=== PATIENT | female | born 1940 | race Caucasian/White ===

== ENCOUNTER → 2016-05-09 | Outpatient (CLI) | payer MEDICARE ==
[2016-05-09 11:53] LABS: ALT 34 U/L (9-52); AST 31 U/L (14-36); Alkaline Phosphatase 80 U/L (38-126); Anion Gap 12 mmol/L; Blood Urea Nitrogen 17 mg/dL (7-17); Calcium 9.6 mg/dL (8.4-10.2); Carbon Dioxide 23 mmol/L (22-30); Chloride 106 mmol/L (98-107); Glucose 113 mg/dL (74-99); Non-African American GFR(MDRD) >60 (>60 ml/min/1.73 sqM); Potassium 4.7 mmol/L (3.5-5.1); Sodium 141 mmol/L (137-145); Total Bilirubin 0.6 mg/dL (0.2-1.3); Total Protein 7.1 g/dL (6.3-8.2)
== END | disposition home or self-care (01) ==
LOC: LABWHC1 11:03
PROVIDERS: ATTEND Pediatrics
DX: Z79.899 Other long term (current) drug therapy (principal)
CPT/HCPCS: 36415; 80053

== ENCOUNTER → 2016-05-21 | Outpatient (CLI) | payer MEDICARE ==
[2016-05-21 10:12] LABS: EKG EKG PERFORMED
[2016-05-21 10:38] LABS: Basophils % (A) 1 %; CH 30.2; CHCM 33.2; Eosinophils # (A) 0.2 k/uL (0-0.7); Eosinophils % (A) 4 %; HCT 39.8 % (34.0-46.0); HDW 2.13; Luc # (Auto) 0.28; Luc % (Auto) 4; Lymphocytes # (A) 1.1 k/uL (1.0-4.8); Lymphocytes % (A) 18 %; MCH 29.9 pg (25.0-35.0); MCHC 32.7 g/dL (31.0-37.0); MCV 91.5 fL (80.0-100.0); Mean Platelet Volume 7.8; Monocytes # (A) 0.4 k/uL (0-1.0); Monocytes % (A) 6 %; Neutrophils # (A) 4.2 k/uL (1.3-7.7); Neutrophils % (A) 68 %; RBC 4.35 m/uL (3.80-5.40); RDW 12.6 % (11.5-15.5); WBC 6.3 k/uL (3.8-10.6)
[2016-05-21 10:46] LABS: Prothrombin Time 10.5 sec (9.0-12.0)
[2016-05-21 11:24] LABS: Appearance,Urine Clear (Clear); Bilirubin,Urine Negative (Negative); Glucose,Urine (UA) Negative (Negative); Ketones,Urine Negative (Negative); Leukocyte Esterase,Urine Large (Negative); Mucus,Urine Rare /hpf; Nitrite,Urine Negative (Negative); PH, Urine 5.5 (5.0-8.0); Particle Count 2632; Protein,Urine Negative (Negative); Specific Gravity,Urine 1.014 (1.001-1.035); Squamous Epithelial Cell,Urine 2 /hpf (0-4); UA Billing (MACRO vs. MICRO) MICRO; Urobilinogen,Urine <2.0 mg/dL (<2.0); WBC,Urine 13 /hpf (0-5)
[2016-05-21 11:26] LABS: ALT 31 U/L (9-52); AST 32 U/L (14-36); Alkaline Phosphatase 78 U/L (38-126); Anion Gap 14 mmol/L; Blood Urea Nitrogen 20 mg/dL (7-17); Calcium 9.8 mg/dL (8.4-10.2); Carbon Dioxide 25 mmol/L (22-30); Chloride 100 mmol/L (98-107); Glucose 105 mg/dL (74-99); Non-African American GFR(MDRD) >60 (>60 ml/min/1.73 sqM); Potassium 4.4 mmol/L (3.5-5.1); Sodium 139 mmol/L (137-145); Total Bilirubin 0.6 mg/dL (0.2-1.3); Total Protein 7.4 g/dL (6.3-8.2)
== END | disposition home or self-care (01) ==
LOC: LABPAT 09:42
PROVIDERS: ATTEND Orthopaedic Surgery
DX: Z01.810 Encounter for preprocedural cardiovascular examination (principal); Z01.812 Encounter for preprocedural laboratory examination
CPT/HCPCS: 80053; 81001; 85025; 85610; 85730; 87070; 93005

== ENCOUNTER → 2016-06-15 | Outpatient (CLI) | payer MEDICARE ==
--- NOTE | 2016-06-15 15:02 | EST ---
DATE OF SERVICE: 06/15/2016 AGE: 76Y SEX: F HT: 68" WT: 170 lbs. Protocol Yordan: X Other: Stress Stage: 1 Dur. of Exercise: 3:00 *Heart Rate Blood Pressure *Rest: 85 Rest: 158/53 * *Max. Achieved: 141 Maximum BP: 213/81 85% PMHR: 122 100% PMHR: 143 *METS: 3.6 INDICATIONS: Abnormal EKG. MEDICATIONS: Eye drops. Patient was exercised for a total period of 3 minutes. Peak heart rate of 141 was achieved. Test was terminated because patient got tired. Patient did not complain of any chest pain during the test. EKG shows normal sinus rhythm with normal KY interval and QRS duration and normal ST-T waves. During exercise about 1.[address] segment depression stayed for about 2 minutes in the postexercise. The patient did not complain of any chest pain during the test. FINAL IMPRESSION: 1. This exercise test shows about 1.[address] segment depression during exercise which could be suggestive of ischemia. Clinical correlation is suggested. 2. Patient did not complain of any anginal pain during the test.
== END ==
LOC: RADNMMAIN 10:19
PROVIDERS: ATTEND Family Medicine
DX: R94.31 Abnormal electrocardiogram [ECG] [EKG] (principal)
CPT/HCPCS: 93017

== ENCOUNTER → 2016-07-23 | Outpatient (CLI) | payer MEDICARE ==
[2016-07-23 12:04] LABS: Anion Gap 9 mmol/L; Blood Urea Nitrogen 21 mg/dL (7-17); Carbon Dioxide 27 mmol/L (22-30); Chloride 105 mmol/L (98-107); Non-African American GFR(MDRD) >60 (>60 ml/min/1.73 sqM); Potassium 4.3 mmol/L (3.5-5.1); Sodium 141 mmol/L (137-145)
[2016-07-23 12:31] LABS: CH 30.3; CHCM 33.1; HCT 41.4 % (34.0-46.0); HDW 2.09; HGB 13.3 gm/dL (11.4-16.0); MCH 29.6 pg (25.0-35.0); MCHC 32.2 g/dL (31.0-37.0); MCV 91.9 fL (80.0-100.0); Mean Platelet Volume 7.1; RDW 12.8 % (11.5-15.5); WBC 6.4 k/uL (3.8-10.6)
== END | disposition home or self-care (01) ==
LOC: LABWHC1 11:21
PROVIDERS: ATTEND Internal Medicine Interventional Cardiology
DX: Z01.812 Encounter for preprocedural laboratory examination (principal); R94.30 Abnormal result of cardiovascular function study, unspecified
CPT/HCPCS: 36415; 80051; 82565; 84520; 85027

== ENCOUNTER 2016-08-04 06:23 | Day surgery (SDC) | payer MEDICARE ==
[2016-07-30 15:56] VITALS: BMI 25.8
[~2016-08-04 06:23] MED LIST: ALPRAZolam 0.25 MG TAB PO PRN; ALPRAZolam 0.5 MG TAB PO PRN; ASPIRIN 325 MG TAB PO STA; ATORVASTATIN 80 MG TAB PO STA; NITROGLYCERIN SL TABS 0.4 MG TAB SUBLINGUAL PRN; SODIUM CHLORIDE 0.9% 1,000 ML in EMPTY BAG 1 BAG IV ONE
[2016-08-04 07:00] VITALS: RESP 16; TEMP 98
[2016-08-04] MEDS ORDERED: LIDOCAINE 2% INJ 20 MG/ML (20 ML MDV) ONE (07:11)
[2016-08-04] MEDS ORDERED: VERAPAMIL 2.5 MG/ML 2 ML AMP ONE (07:11)
[2016-08-04] MEDS ORDERED: fentaNYL (PF) 50 MCG/ML 2 ML AMP ONE (07:11)
[2016-08-04] MEDS ORDERED: diphenhydrAMINE 50 MG/ML 1 ML VIAL ONE (07:11)
[2016-08-04] MEDS ORDERED: diphenhydrAMINE 50 MG/ML 1 ML VIAL IVP ONE (07:43)
[2016-08-04] MEDS ORDERED: fentaNYL (PF) 50 MCG/ML 2 ML AMP IV ONE (07:43)
[2016-08-04] MEDS ORDERED: HEPARIN SODIUM 1,000 UNIT/ML VIAL ONE (07:46)
[2016-08-04] MEDS ORDERED: LIDOCAINE 2% INJ 20 MG/ML SQ ONE (07:47)
[2016-08-04] MEDS ORDERED: VERAPAMIL SYRINGE (5 MG/10 ML) INTRAARTER ONE (07:49)
[2016-08-04] MEDS ORDERED: HEPARIN SODIUM 1,000 UNIT/ML VIAL IV ONE (07:50)
[2016-08-04] MEDS ORDERED: NITROGLYCERIN 1000MCG/10ML SYRINGE INTRACORON ONE (08:09)
[2016-08-04] MEDS ORDERED: ADENOSINE 90 MG in SODIUM CHLORIDE 0.9% 60 ML IVP ONE (08:20)
[2016-08-04] MEDS ORDERED: IOHEXOL 350 MG/ML 125ML BOTTLE INJ ONE (08:23)
[2016-08-04] MEDS ORDERED: RX INFO: IV CONTRAST WAS GIVEN 1 EACH MISC MISCELLANE PRN (08:36)
[2016-08-04] MEDS ORDERED: SODIUM CHLORIDE 5% OPHTH DROPS 15 ML BTL BOTH EYES PRN (08:36)
[2016-08-04] MEDS ORDERED: SODIUM CHLORIDE 0.9% 1,000 ML IV SCH (08:45)
[2016-08-04] MEDS ORDERED: DHA PO SCH (09:00)
[2016-08-04] MEDS ORDERED: NON-FORMULARY DRUG (Vitamin B Complex [Vitamin B Complex] 1 EACH) PO SCH (09:00)
[2016-08-04] MEDS ORDERED: ATORVASTATIN 40 MG TAB PO SCH (09:00)
[2016-08-04] MEDS ORDERED: ASPIRIN 81 MG CHEW PO SCH (09:00)
[2016-08-04] MEDS ORDERED: EPA PO SCH (09:00)
[2016-08-04] MEDS ORDERED: FISH OIL PO SCH (09:00)
[2016-08-04] MEDS ORDERED: OMEGA PO SCH (09:00)
--- NOTE | 2016-08-04 12:45 | CC ---
DATE OF SERVICE: 08/04/2016 Mrs. Shaver is a 76-year-old female with a history of hypertension, hyperlipidemia, who is scheduled to undergo total knee arthroplasty, underwent a regular stress test where she had EKG changes with poor exercise tolerance. In view of that, recommendation was made regarding cardiac catheterization. The procedure as well as the risks and complications were discussed with the patient, who is full understanding and agreement. PROCEDURE: The patient was brought to the labor relations representative in a fasting semi-sedated state after receiving fentanyl and Benadryl and after showing moderate conscious sedated state. Using Xylocaine anesthesia and Seldinger technique, a 6 Ugandan sheath was introduced in the right radial artery. Selective right and left coronary angiography was performed using 5 Ugandan, 3-1/2 Bend right and left Asiya catheters. Multiple views of the coronary arteries including hemiaxial views were obtained. Following that, a 5 Ugandan tight pigtail catheter was introduced in the left ventricle, and a 30-degree FARR view of the left ventricle was obtained. Following that, catheter were removed. Images were reviewed. Following that a 6 Ugandan FL3.5 guiding catheter was introduced in the system, after cannulating the left main, the Doppler flow wire was introduced into the LAD, positioned in the mid distal segment, fractional flow reserve was calculated after infusion of Adenosine per protocol. Following that, wire and guiding catheter were withdrawn. The sheath was removed. Hemostasis was obtained with deployment of a TR band. There was no evidence of immediate complication. The patient was returned to the room in stable condition. Of note, the patient had received 4000 units of intravenous heparin as well as intra-arterial verapamil. There was no immediate complication. FINDINGS: FLUOROSCOPY: There is significant calcification involving all the coronary arteries. LEFT MAIN: This is a large-size vessel bifurcating into left circumflex and left anterior descending artery. Left main coronary artery is without any significant obstructive disease. LEFT ANTERIOR DESCENDING ARTERY: This is a large-size vessel reaching toward the apex, giving rise to a small diagonal branch. 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 There is an eccentric 50% to 60% plaque. The rest of the vessel has no high-grade stenosis. LEFT CIRCUMFLEX: This is a nondominant vessel, moderate in caliber, giving rise to 2 obtuse marginal branches. The left circumflex and its branches have no evidence of obstructive coronary artery disease. RIGHT CORONARY ARTERY: This is a large dominant vessel, bifurcating distally to PDA and posterolateral segment and branches. The right coronary artery in the mid to distal segment has a 20% to 30% plaque. The rest of the vessel has no high-grade stenosis. LEFT VENTRICULOGRAM: Left ventriculogram is performed in 30-degree FARR view and revealed normal left ventricular size and systolic function. Ejection fraction is 60%. There was no significant mitral regurgitation. Calcification of the abdominal aorta was noted. HEMODYNAMICS: There was no gradient across the aortic valve. The left ventricular end-diastolic pressure was 24 mmHg. FRACTIONAL FLOW RESERVE: Fractional flow reserve of the proximal LAD was 84%. IMPRESSION: 1. Calcified coronary arteries. 2. Moderate disease in the proximal left anterior descending artery. 3. Mild disease in the mid right coronary artery. 4. Normal left ventricular size and systolic function. 5. Non-hemodynamically significant lesion in the proximal left anterior descending artery by fractional flow reserve measurement. RECOMMENDATION: Patient will be continued on aspirin, aggressive coronary risk modification including a statin. The importance of that approach was discussed with the patient who is in full understanding and agreement. DURATION OF THE PROCEDURE: 43 minutes. WILIAM
--- NOTE | 2016-08-04 12:50 | LTR ---
August 04, 2016 JOAN GIBSON DO RE: Estrellita Shaver Dear Dr. Gibson: I had the opportunity to perform cardiac catheterization on Mrs. Shaver at [facility] on 04 of August and a full copy of the procedure note will be forwarded to you. In brief, she was found to have calcified coronary arteries with moderate plaque in the proximal LAD and because of that, she underwent fractional flow reserve measurement that showed a nonhemodynamic significant lesion and based on those findings. I recommend continuing medical therapy with aggressive coronary risk modification. Depending on her progress, further recommendations will be made. Thank you again for allowing me the opportunity to participate in her care. Please feel free to call for any questions. Sincerely yours, ÓSCAR SAENZ MD
[2016-08-04 13:13] VITALS: BP 124/62; PULSE 68
[2016-08-04] MEDS ORDERED: LATANOPROST 0.005% OPHTH DROPS 2.5 ML BTL LEFT EYE SCH (21:00)
== END 2016-08-04 13:13 | disposition home or self-care (01) ==
LOC: CATHCVL 06:23
PROVIDERS: ATTEND Internal Medicine Interventional Cardiology
DX: I25.10 Atherosclerotic heart disease of native coronary artery without angina pectoris (principal); I25.84 Coronary atherosclerosis due to calcified coronary lesion; I10 Essential (primary) hypertension; E78.2 Mixed hyperlipidemia; R01.1 Cardiac murmur, unspecified; Z79.82 Long term (current) use of aspirin; Z88.1 Allergy status to other antibiotic agents; Z88.5 Allergy status to narcotic agent; Z88.2 Allergy status to sulfonamides; Z88.8 Allergy status to other drugs, medicaments and biological substances
CPT/HCPCS: 93571; 93458; 99152; 99153 ×2; C1887; C1894 ×2; C1769; J2001; J1200; J3010; J1644; J0153; Q9967

== ENCOUNTER → 2017-01-05 | Outpatient (CLI) | payer MEDICARE ==
--- NOTE | 2017-01-05 15:07 | XR ---
EXAMINATION TYPE: XR knee complete LT DATE OF EXAM: 01/05/2017 CLINICAL HISTORY: Arthritic pain. TECHNIQUE: Three views of the left knee are obtained. COMPARISON: None. FINDINGS: There is no acute fracture/dislocation evident in left knee. There is moderate to severe j oint space loss and spurring medial tibiofemoral compartment. There is mild to moderate joint space l oss and moderate spurring patellofemoral compartment. Mild spurring lateral tibiofemoral compartment is seen. Increased density suprapatellar bursa is suspicious for moderate to large joint effusion. 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
== END | disposition home or self-care (01) ==
LOC: RADXRMAIN 14:21
PROVIDERS: ATTEND Physical Medicine & Rehabilitation Spinal Cord Injury Medicine
DX: M17.12 Unilateral primary osteoarthritis, left knee (principal)

== ENCOUNTER 2017-10-16 23:50 | Emergency (ER) | payer MEDICARE ==
--- NOTE | 2017-10-17 00:22 | ED ---
General Adult HPI - General Chief complaint: Weakness Stated complaint: Weakness,headache Time Seen by Provider: 10/17/17 00:08 Source: patient Mode of arrival: ambulatory Limitations: no limitations - History of Present Illness Initial comments: This patient is 77-year-old woman who presents to be evaluated for a number of symptoms. She states that she was last in her usual state of health in the early afternoon. She states that around that time she began feeling like she was not quite right she states she was feeling somewhat unsteady when she would stand. She states she had gone to bed and then had gotten up to use the bathroom lower hour ago and felt "dizzy." She states now that when she lies back she feels like the room is spinning. She also has mild bifrontal headache , 4 out of 10 intensity, constant, without worsening or relieving factors. She states she usually drinks some coffee and today she did not have any she is wondering if she is having a little caffeine withdrawal. Onset/Timin -: hour(s) Location: head Radiation: non-radiation Quality: dull Consistency: constant Improves with: none Worsens with: none Associated Symptoms: other Treatments Prior to Arrival: none - Related Data Home Medications Medication Instructions Recorded Confirmed Alpha-Lipoic Supplement 1 tab PO BID 05/26/16 07/30/16 Ascorbic Acid [Vitamin C] 2,000 mg PO DAILY 05/26/16 07/30/16 Cholecalciferol [Vitamin D3] 1,000 unit PO DAILY 05/26/16 07/30/16 Curcumin Evail 1 tab PO DAILY 05/26/16 07/30/16 Dhea Supplement 5 mg PO BID 05/26/16 07/30/16 Iodine Synergy 40 mcg PO WEEKLY 05/26/16 08/04/16 Latanoprost Ophth [Xalatan 0.005%] 1 drops LEFT EYE HS 05/26/16 08/04/16 Bernard-3/Dha/Epa/Fish Oil [Fish Oil 1 each PO DAILY 05/26/16 07/30/16 500 mg Softgel] Sodium Chloride 5% Ophth Soln 1 drops BOTH EYES TID PRN 05/26/16 08/04/16 [Julio 128] Vitamin B Complex 1 each PO DAILY 05/26/16 07/30/16 Previous Rx's Medication Instructions Recorded Aspirin 81 mg PO DAILY 08/04/16 Atorvastatin [Lipitor] 40 mg PO DAILY #90 tab 08/04/16 Meclizine [Antivert] 25 mg PO TID PRN #15 tab 10/17/17 Allergies Allergy/AdvReac Type Severity Reaction Status Date / Time clarithromycin [From Biaxin] Allergy Unknown Rapid Verified 10/17/17 00:03 Heart Rate, depression, difficulty sleeping codeine Allergy Unknown Nausea, Verified 10/17/17 00:03 Dizziness egg Allergy Unknown Phlegm Verified 10/17/17 00:03 levofloxacin [From Levaquin] Allergy Unknown Depression, Verified 10/17/17 00:03 Crying, Difficulty Sleeping milk Allergy Unknown Phlegm Verified 10/17/17 00:03 pantoprazole [From Protonix] Allergy Unknown Elevated Verified 10/17/17 00:03 Blood Sugar sulfamethoxazole Allergy Unknown Abdominal Verified 10/17/17 00:03 [From Bactrim] Pain, NAUSEA tramadol Allergy Unknown Dizziness Verified 10/17/17 00:03 trimethoprim [From Bactrim] Allergy Unknown Abdominal Verified 10/17/17 00:03 Pain, NAUSEA wheat Allergy Unknown Phlegm Verified 10/17/17 00:03 azithromycin Allergy Rapid Verified 10/17/17 00:03 [From Zithromax Z-Josesito] Heart Rate tree nut [Nut] Allergy Anaphylaxis Verified 10/17/17 00:04 oral steroids Allergy Severe Abdominal Uncoded 10/17/17 00:03 Pain Review of Systems ROS Statement: Those systems with pertinent positive or pertinent negative responses have been documented in the HPI. ROS Other: All systems not noted in ROS Statement are negative. Constitutional: Denies: fever, chills, weakness Eyes: Denies: vision change ENT: Denies: ear pain Respiratory: Denies: cough, dyspnea Cardiovascular: Denies: chest pain, palpitations, edema Gastrointestinal: Reports: nausea. Denies: abdominal pain, vomiting, diarrhea Genitourinary: Denies: dysuria, hematuria Musculoskeletal: Denies: back pain Skin: Denies: rash Neurological: Reports: headache, vertigo. Denies: weakness, numbness, paresthesias, confusion Past Medical History History of Any Multi-Drug Resistant Organisms: None Reported Past Surgical History: Ablation Past Psychological History: No Psychological Hx Reported Smoking Status: Never smoker Past Alcohol Use History: Occasional Past Drug Use History: None Reported General Exam Limitations: no limitations General appearance: alert, in no apparent distress Head exam: Present: atraumatic, normocephalic Eye exam: Present: normal appearance. Absent: scleral icterus, conjunctival injection ENT exam: Present: normal oropharynx, TM's normal bilaterally, normal external ear exam Neck exam: Present: normal inspection, other (No carotid bruit) Respiratory exam: Present: normal lung sounds bilaterally. Absent: respiratory distress, wheezes, rales, rhonchi, stridor Cardiovascular Exam: Present: regular rate, normal rhythm, normal heart sounds. Absent: systolic murmur, diastolic murmur, rubs, gallop GI/Abdominal exam: Present: soft. Absent: tenderness, guarding, rebound, rigid Extremities exam: Present: normal inspection, normal capillary refill. Absent: pedal edema, calf tenderness Back exam: Present: normal inspection. Absent: CVA tenderness (R), CVA tenderness (L) Neurological exam: Present: alert, oriented X3, CN II-XII intact. Absent: motor sensory deficit Skin exam: Present: warm, dry, intact, normal color. Absent: rash Course Vital Signs 10/16/17 10/17/17 23:58 02:34 Temperature 98.1 F 97.3 F L Pulse Rate 68 62 Respiratory 18 19 Rate Blood Pressure 168/82 149/68 O2 Sat by Pulse 94 L 97 Oximetry EKG Findings - EKG Results: EKG: interpreted by JULISA CROSS, sinus rhythm (Rate 70 bpm), normal axis, normal QRS, normal ST/T, no acute changes - OR, Pacemaker, Normal: Normal tracing: normal tracing Medical Decision Making - Lab Data Result diagrams: 10/17/17 00:51 10/17/17 00:51 Lab Results 10/17/17 10/17/17 10/17/17 Range/Units 00:51 00:51 00:51 WBC 5.9 (3.8-10.6) k/uL RBC 4.30 (3.80-5.40) m/uL Hgb 12.4 (11.4-16.0) gm/dL Hct 37.7 (34.0-46.0) % MCV 87.7 (80.0-100.0) fL MCH 28.9 (25.0-35.0) pg MCHC 32.9 (31.0-37.0) g/dL RDW 13.0 (11.5-15.5) % Plt Count 218 (150-450) k/uL Neutrophils % 60 % Lymphocytes % 23 % Monocytes % 8 % Eosinophils % 5 % Basophils % 1 % Neutrophils # 3.5 (1.3-7.7) k/uL Lymphocytes # 1.4 (1.0-4.8) k/uL Monocytes # 0.5 (0-1.0) k/uL Eosinophils # 0.3 (0-0.7) k/uL Basophils # 0.0 (0-0.2) k/uL PT (9.0-12.0) sec INR (<1.2) APTT (22.0-30.0) sec Sodium 138 (137-145) mmol/L Potassium 4.2 (3.5-5.1) mmol/L Chloride 107 (98-107) mmol/L Carbon Dioxide 23 (22-30) mmol/L Anion Gap 8 mmol/L BUN 29 H (7-17) mg/dL Creatinine 0.50 L (0.52-1.04) mg/dL Est GFR (CKD-EPI)AfAm >90 (>60 ml/min/1.73 sqM) Est GFR (CKD-EPI)NonAf >90 (>60 ml/min/1.73 sqM) Glucose 94 (74-99) mg/dL Plasma Lactic Acid Gary (0.7-2.0) mmol/L Calcium 9.5 (8.4-10.2) mg/dL Magnesium 2.0 (1.6-2.3) mg/dL Total Bilirubin 0.5 (0.2-1.3) mg/dL AST 32 (14-36) U/L ALT 30 (9-52) U/L Alkaline Phosphatase 81 (38-126) U/L Total Creatine Kinase 68 (30-135) U/L CK-MB (CK-2) 2.6 H* (0.0-2.4) ng/mL CK-MB (CK-2) Rel Index 3.8 Troponin I <0.012 (0.000-0.034) ng/mL Total Protein 6.3 (6.3-8.2) g/dL Albumin 4.0 (3.5-5.0) g/dL Urine Color Urine Appearance (Clear) Urine pH (5.0-8.0) Ur Specific Thayne (1.001-1.035) Urine Protein (Negative) Urine Glucose (UA) (Negative) Urine Ketones (Negative) Urine Blood (Negative) Urine Nitrite (Negative) Urine Bilirubin (Negative) Urine Urobilinogen (<2.0) mg/dL Ur Leukocyte Esterase (Negative) Urine WBC (0-5) /hpf Urine Mucus (None) /hpf 10/17/17 10/17/17 10/17/17 Range/Units 00:51 00:51 01:37 WBC (3.8-10.6) k/uL RBC (3.80-5.40) m/uL Hgb (11.4-16.0) gm/dL Hct (34.0-46.0) % MCV (80.0-100.0) fL MCH (25.0-35.0) pg MCHC (31.0-37.0) g/dL RDW (11.5-15.5) % Plt Count (150-450) k/uL Neutrophils % % Lymphocytes % % Monocytes % % Eosinophils % % Basophils % % Neutrophils # (1.3-7.7) k/uL Lymphocytes # (1.0-4.8) k/uL Monocytes # (0-1.0) k/uL Eosinophils # (0-0.7) k/uL Basophils # (0-0.2) k/uL PT 9.8 (9.0-12.0) sec INR 1.0 (<1.2) APTT 23.4 (22.0-30.0) sec Sodium (137-145) mmol/L Potassium (3.5-5.1) mmol/L Chloride (98-107) mmol/L Carbon Dioxide (22-30) mmol/L Anion Gap mmol/L BUN (7-17) mg/dL Creatinine (0.52-1.04) mg/dL Est GFR (CKD-EPI)AfAm (>60 ml/min/1.73 sqM) Est GFR (CKD-EPI)NonAf (>60 ml/min/1.73 sqM) Glucose (74-99) mg/dL Plasma Lactic Acid Gary 0.8 (0.7-2.0) mmol/L Calcium (8.4-10.2) mg/dL Magnesium (1.6-2.3) mg/dL Total Bilirubin (0.2-1.3) mg/dL AST (14-36) U/L ALT (9-52) U/L Alkaline Phosphatase (38-126) U/L Total Creatine Kinase (30-135) U/L CK-MB (CK-2) (0.0-2.4) ng/mL CK-MB (CK-2) Rel Index Troponin I (0.000-0.034) ng/mL Total Protein (6.3-8.2) g/dL Albumin (3.5-5.0) g/dL Urine Color Yellow Urine Appearance Clear (Clear) Urine pH 5.5 (5.0-8.0) Ur Specific Th[place]ne 1.012 (1.001-1.035) Urine Protein Negative (Negative) Urine Glucose (UA) Negative (Negative) Urine Ketones Negative (Negative) Urine Blood Negative (Negative) Urine Nitrite Negative (Negative) Urine Bilirubin Negative (Negative) Urine Urobilinogen <2.0 (<2.0) mg/dL Ur Leukocyte Esterase Small H (Negative) Urine WBC 3 (0-5) /hpf Urine Mucus Occasional H (None) /hpf Disposition Clinical Impression: Dehydration Disposition: HOME SELF-CARE Condition: Good Instructions: Dehydration (ED) Prescriptions: Meclizine [Antivert] 25 mg PO TID PRN #15 tab PRN Reason: Vertigo Is patient prescribed a controlled substance at d/c from ED?: No Referrals: Jonathon Gibson DO [Primary Care Provider] - 1-2 days
--- NOTE | 2017-10-17 00:35 | XR ---
EXAMINATION TYPE: XR chest 1V portable DATE OF EXAM: 10/17/2017 COMPARISON: 08/10/2009 HISTORY: Weakness TECHNIQUE: Single frontal view of the chest is obtained. FINDINGS: There is small linear density at the right lung base. The other lung rodriguez are clear. The re is no heart failure. There is no pleural effusion. Bony thorax is intact. There are no hilar rona s. IMPRESSION: New mild atelectasis at the right lung base compared to old exam. No heart failure seen.
[2017-10-17] MEDS ORDERED: MECLIZINE 12.5 MG TAB PO STA (00:54)
[2017-10-17 01:00] LABS: Basophils % (A) 1 %; Eosinophils # (A) 0.3 k/uL (0-0.7); Eosinophils % (A) 5 %; HCT 37.7 % (34.0-46.0); HGB 12.4 gm/dL (11.4-16.0); Lymphocytes # (A) 1.4 k/uL (1.0-4.8); Lymphocytes % (A) 23 %; MCH 28.9 pg (25.0-35.0); MCHC 32.9 g/dL (31.0-37.0); MCV 87.7 fL (80.0-100.0); Mean Platelet Volume 7.7; Monocytes # (A) 0.5 k/uL (0-1.0); Monocytes % (A) 8 %; Neutrophils # (A) 3.5 k/uL (1.3-7.7); Neutrophils % (A) 60 %; Platelet Count 218 k/uL (150-450); WBC 5.9 k/uL (3.8-10.6)
[2017-10-17 01:10] LABS: ALT 30 U/L (9-52); AST 32 U/L (14-36); Alkaline Phosphatase 81 U/L (38-126); Anion Gap 8 mmol/L; Blood Urea Nitrogen 29 mg/dL (7-17); Calcium 9.5 mg/dL (8.4-10.2); Carbon Dioxide 23 mmol/L (22-30); Chloride 107 mmol/L (98-107); Glucose 94 mg/dL (74-99); Partial Thromboplastin Time 23.4 sec (22.0-30.0); Potassium 4.2 mmol/L (3.5-5.1); Prothrombin Time 9.8 sec (9.0-12.0); Sodium 138 mmol/L (137-145); Total Bilirubin 0.5 mg/dL (0.2-1.3); Total Protein 6.3 g/dL (6.3-8.2)
[2017-10-17 01:23] LABS: Creatine Kinase 68 U/L (30-135)
--- NOTE | 2017-10-17 01:23 | CT ---
EXAMINATION TYPE: CT brain wo con DATE OF EXAM: 10/17/2017 COMPARISON: None HISTORY: NO prior, weakness, anxiety CT DLP: 989.50 mGycm Automated exposure control for dose reduction was used. FINDINGS: The ventricles have normal size. There is no mass effect nor midline shift. There is no sign of intra cranial hemorrhage. Calvarium is intact. IMPRESSION: HEAD CT SCAN APPEARS NORMAL FOR AGE.
[2017-10-17] MEDS ORDERED: SODIUM CHLORIDE 0.9% 500 ML IV STA (01:30)
[2017-10-17 01:36] LABS: Troponin I <0.012 ng/mL (0.000-0.034)
[2017-10-17 01:38] LABS: Creatine Kinase MB 2.6 ng/mL (0.0-2.4)
[2017-10-17 02:03] LABS: Appearance,Urine Clear (Clear); Bilirubin,Urine Negative (Negative); Blood,Urine Negative (Negative); Color,Urine Yellow; Glucose,Urine (UA) Negative (Negative); Ketones,Urine Negative (Negative); Leukocyte Esterase,Urine Small (Negative); Mucus,Urine Occasional /hpf; Nitrite,Urine Negative (Negative); PH, Urine 5.5 (5.0-8.0); Protein,Urine Negative (Negative); Specific Gravity,Urine 1.012 (1.001-1.035); Urobilinogen,Urine <2.0 mg/dL (<2.0); WBC,Urine 3 /hpf (0-5)
[2017-10-17 02:36] VITALS: BP 149/68; PULSE 62; RESP 19; TEMP 97.3
== END 2017-10-17 02:34 | disposition home or self-care (01) ==
LOC: EC 23:50
DX: E86.0 Dehydration (principal); R53.1 Weakness; R51 Headache; Z79.899 Other long term (current) drug therapy; Z88.1 Allergy status to other antibiotic agents; Z88.5 Allergy status to narcotic agent; Z88.8 Allergy status to other drugs, medicaments and biological substances; Z91.011 Allergy to milk products; Z91.012 Allergy to eggs; Z91.018 Allergy to other foods
CPT/HCPCS: 36415; 70450; 71045; 80053; 81001; 82550; 82553; 83605; 83735; 84484; 85025; 85610; 85730; 93005; 99285

== ENCOUNTER 2017-10-24 16:54 | Emergency (ER) | payer MEDICARE ==
--- NOTE | 2017-10-24 17:46 | ED ---
Fall HPI - General Chief Complaint: Fall Stated Complaint: fall Time Seen by Provider: 10/24/17 17:00 Source: patient, RN notes reviewed, old records reviewed Mode of arrival: EMS - History of Present Illness Initial Comments: 77-year-old female presents emergency Department after a fall. Patient ports that she was in a movie theater slipped and fell. Patient complains of R shoulder, bilateral knee pain, and nose pain. She reports she had a bloody nose after her fall. She states that she tripped, and denies LOC. - Related Data Home Medications Medication Instructions Recorded Confirmed Alpha-Lipoic Supplement 1 tab PO BID 05/26/16 07/30/16 Ascorbic Acid [Vitamin C] 2,000 mg PO DAILY 05/26/16 07/30/16 Cholecalciferol [Vitamin D3] 1,000 unit PO DAILY 05/26/16 07/30/16 Curcumin Evail 1 tab PO DAILY 05/26/16 07/30/16 Dhea Supplement 5 mg PO BID 05/26/16 07/30/16 Iodine Synergy 40 mcg PO WEEKLY 05/26/16 08/04/16 Latanoprost Ophth [Xalatan 0.005%] 1 drops LEFT EYE HS 05/26/16 08/04/16 Randolph-3/Dha/Epa/Fish Oil [Fish Oil 1 each PO DAILY 05/26/16 07/30/16 500 mg Softgel] Sodium Chloride 5% Ophth Soln 1 drops BOTH EYES TID PRN 05/26/16 08/04/16 [Julio 128] Vitamin B Complex 1 each PO DAILY 05/26/16 07/30/16 Previous Rx's Medication Instructions Recorded Aspirin 81 mg PO DAILY 08/04/16 Atorvastatin [Lipitor] 40 mg PO DAILY #90 tab 08/04/16 Meclizine [Antivert] 25 mg PO TID PRN #15 tab 10/17/17 Amoxicillin/Potassium Clav 1 tab PO Q12HR #20 tab 10/24/17 [Augmentin 875-125 Tablet] Allergies Allergy/AdvReac Type Severity Reaction Status Date / Time clarithromycin [From Biaxin] Allergy Unknown Rapid Verified 10/24/17 16:56 Heart Rate, depression, difficulty sleeping codeine Allergy Unknown Nausea, Verified 10/24/17 16:56 Dizziness egg Allergy Unknown Phlegm Verified 10/24/17 16:56 levofloxacin [From Levaquin] Allergy Unknown Depression, Verified 10/24/17 16:56 Crying, Difficulty Sleeping milk Allergy Unknown Phlegm Verified 10/24/17 16:56 pantoprazole [From Protonix] Allergy Unknown Elevated Verified 10/24/17 16:56 Blood Sugar sulfamethoxazole Allergy Unknown Abdominal Verified 10/24/17 16:56 [From Bactrim] Pain, NAUSEA tramadol Allergy Unknown Dizziness Verified 10/24/17 16:56 trimethoprim [From Bactrim] Allergy Unknown Abdominal Verified 10/24/17 16:56 Pain, NAUSEA wheat Allergy Unknown Phlegm Verified 10/24/17 16:56 azithromycin Allergy Rapid Verified 10/24/17 16:56 [From Zithromax Z-Josesito] Heart Rate tree nut [Nut] Allergy Anaphylaxis Verified 10/24/17 16:56 oral steroids Allergy Severe Abdominal Uncoded 10/24/17 16:56 Pain Review of Systems ROS Statement: Those systems with pertinent positive or pertinent negative responses have been documented in the HPI. ROS Other: All systems not noted in ROS Statement are negative. Past Medical History Past Medical History: No Reported History History of Any Multi-Drug Resistant Organisms: None Reported Past Surgical History: Ablation, Joint Replacement Past Psychological History: No Psychological Hx Reported Smoking Status: Never smoker Past Alcohol Use History: Occasional Past Drug Use History: None Reported General Exam - General Exam Comments Initial Comments: This is a 77 year old female, no distress. Limitations: no limitations General appearance: alert, in no apparent distress Head exam: Present: atraumatic, normocephalic, normal inspection Eye exam: Present: normal appearance, PERRL, EOMI. Absent: scleral icterus, conjunctival injection, periorbital swelling ENT exam: Present: normal exam, mucous membranes moist, other (L nare is bleeding. Tenderness over bridge of nose. ) Neck exam: Present: normal inspection. Absent: tenderness, meningismus, lymphadenopathy Respiratory exam: Present: normal lung sounds bilaterally. Absent: respiratory distress, wheezes, rales, rhonchi, stridor Cardiovascular Exam: Present: regular rate, normal rhythm, normal heart sounds. Absent: systolic murmur, diastolic murmur, rubs, gallop, clicks GI/Abdominal exam: Present: soft, normal bowel sounds. Absent: distended, tenderness, guarding, rebound, rigid Extremities exam: Present: normal inspection, full ROM, normal capillary refill , other (Full ROM of R shoulder, tender over deltoid. ). Absent: tenderness, pedal edema, joint swelling, calf tenderness Back exam: Present: normal inspection Neurological exam: Present: alert, oriented X3, CN II-XII intact Psychiatric exam: Present: normal affect, normal mood Skin exam: Present: warm, dry, intact, normal color. Absent: rash Course Vital Signs 10/24/17 10/24/17 16:56 19:34 Temperature 98.2 F 97.8 F Pulse Rate 77 70 Respiratory 20 18 Rate Blood Pressure 192/77 159/68 O2 Sat by Pulse 98 98 Oximetry Medical Decision Making - Medical Decision Making 77 year old female presents with fall. She tripped at a movie theater. She complains of nasal pain, R shoulder pain, and knee pain. She did have some bleeding from L nare. She has no septal hematoma. Evidence of nasal fracture, and non displaced maxillary fracture. No entrapment of EOM. Patient shoulder and knee xray are negative for acute process. Knee xray show arthritis. CT brain and Cspine show no acute changes, evidence of degenerative disc disease. She also has an enlarged thryroid which can be followed up with non emergent US. Informed patient of results. At this time, her nose bleed has stopped. I will place patient on antibiotics for nasal bone fracture and maxillary fracture. Discussed ENT follow up, and discussed motrin and tylenol for pain. She does not want any pain medication in ED or Rx for pain medication. Patient agrees to follow up and return parameters discussed. - Radiology Data Radiology results: report reviewed CXR shows Chronic findings without any acute cardiac pulmonary process in the chest. There is no acute fracture dislocation of the right shoulder. Moderate AC joint or more arthropathy. No acute fracture dislocation either knee. Moderate Tricompartal arthrosis bilateralyy. CT facial bones shows Minimally leftward displaced left and right nasal bone fractures and longitudinal nondisplaced fracture of the nasal septum with blood products identified in the posterior nasal pharynx that are nonobstructive. Nondisplaced transversely oriented fracture of the maxillary spine. CT brain and Cspine shows No acute intracranial hemorrhage process. Diffuse age-related cerebral atrophy and chronic small vessel ischemic changes. Multilevel degenerative disc disease of cervical spine with suspicion for spinal Stenosis at C5-C6 and C6-C7. Likely degenerative. No acute cervical fracture noted. Diffuse [place] large thyroid gland for further nonemergent characterization with thyroid ultrasound is recommended. Disposition Clinical Impression: Nasal fracture, Closed right maxillary fracture Disposition: HOME SELF-CARE Condition: Good Instructions: Nasal Fracture (ED) Additional Instructions: Patient advised to follow-up with primary care physician and ENT specialist.. Return to emergency department if any alarming signs or symptoms occur. Take the antibiotic as prescribed. Prescriptions: Amoxicillin/Potassium Clav [Augmentin 875-125 Tablet] 1 tab PO Q12HR #20 tab Is patient prescribed a controlled substance at d/c from ED?: No Referrals: Gamal Perez DO [Primary Care Provider] - 1-2 days Suman Cross MD [STAFF PHYSICIAN] - 1-2 days Walter Christian MD [STAFF PHYSICIAN] - 1-2 days Time of Disposition: 19:22
--- NOTE | 2017-10-24 18:40 | CT ---
EXAMINATION TYPE: CT facial bones wo con, CT brain cspine wo con DATE OF EXAM: 10/24/2017 HISTORY: Fall, hit nose (accession [id number]), Fall, hit top of head and nose (accession [id number]) CT DLP: 422.40 (accession [id number]), 1314.60 (accession [id number]) mGycm. Automated Exposure Control for Dose Reduction was Utilized. TECHNIQUE: CT scan of the head , facial bones, and cervical spine is performed without contrast. COMPARISON: 10/17/2017 FINDINGS: Facial Bones: There is a nondisplaced transversely oriented fracture of the maxillary spine on series 2 image 8 and image 9. Additionally there is a minimally comminuted and minimally displaced fracture of both the r ight and left nasal bone both with 1 mm leftward deviation. There is soft tissue swelling correspondi ngly over the nasal bridge. Incidentally noted left-sided ronal bullosa is seen. Osseous septum with in the left maxillary sinus is noted. Nasal septum displays a longitudinal fracture on series 2 image 16 and is nondisplaced with blood products and secretions gathered in the posterior nasopharynx. Rem aining paranasal sinuses and visualized portions of the mastoid air cells are well aerated. Cerumen i s noted within the external auditory canals. The remaining facial bones are intact. Degenerative changes of the temporomandibular joints are seen as flattening of the mandibular condyles, left greater than right. Orbits are symmetric as are the ex traocular muscles and globes. Left lens is atrophic although appears in the anterior chamber appropri ately placed and right lens is likely surgically absent or significantly atrophic. No post septal sof t tissue swelling. Brain: There is no acute intracranial hemorrhage or midline shift identified. There is mild symmetric ventri cular and sulcal prominence consistent with age-related cerebral atrophy. There is low-attenuation i n the periventricular white most commonly related to chronic small vessel ischemic change. The globe s are intact and the visualized sinuses are clear. Cervical spine: The cervical spine is visualized in its entirety from C1 through upper thoracic levels, demonstrates satisfactory alignment without evidence of acute fracture or dislocation. Prevertebral soft tissue a ppears within normal limits. The C1-C2 articulation is within normal limits on the coronal images. M oderate multilevel degenerative changes of the cervical spine are seen with calcification of the post erior longitudinal ligament, calcification of the ligamentum flavum, posterior disc osteophyte comple xes at C5-C6 and C6-C7, calcification of the intervertebral disc space at C4-C5, small anterior osteo phytes, facet arthropathy and uncovertebral hypertrophy. There are suspected spinal canal stenosis at C5-C6 and C6-C7. This would be better evaluated with MRI. Facets remain aligned atelectasis does the skull base. Review of axial images shows no significant spinal canal stenosis or neural foraminal narrowing at an y cervical level. Thyroid gland is diffusely heterogenous and appears enlarged. Thyroid goiter suspec keven although further characterization with thyroid ultrasound is recommended. Visualized lung apices are clear. Incidental note is made of atherosclerosis of the carotid arteries. IMPRESSION: 1. Minimally leftward displaced right and left nasal bone fractures and longitudinal nondisplaced fra cture of the nasal septum with blood products identified in the posterior nasopharynx that are nonobs tructive. 2. Nondisplaced transversely oriented fracture of the maxillary spine. 3. No acute acute intracranial hemorrhage process. There is diffuse age-related cerebral atrophy and chronic small vessel ischemic change noted. 4. Multilevel degenerative disc disease of the cervical spine with suspicion for spinal canal stenosi s at C5-C6 and C6-7 that could be better evaluated with MRI. This is likely degenerative. No acute ce rvical spine fracture seen. 5. Diffusely heterogenous and enlarged thyroid gland for which further nonemergent characterization w ith thyroid ultrasound is recommended.
--- NOTE | 2017-10-24 18:42 | XR ---
EXAMINATION TYPE: XR chest 2V DATE OF EXAM: 10/24/2017 COMPARISON: 10/17/2017 HISTORY: Fall subsequent chest pain. TECHNIQUE: Frontal and lateral views of the chest are obtained. FINDINGS: There is pulmonary per inflation and biapical lucency compatible with underlying COPD. Mul tifocal subsegmental atelectasis and linear pleural parenchymal scarring are noted. Cardiomediastinal silhouette is within normal limits. There is generalized osseous demineralization, slightly limiting evaluation of the osseous structures. However no gross evidence of osseous fracture is seen. Acromio clavicular arthropathy is mild. IMPRESSION: Chronic findings with no acute cardiopulmonary process.
--- NOTE | 2017-10-24 18:47 | XR ---
EXAMINATION TYPE: XR knee complete bilateral DATE OF EXAM: 10/24/2017 CLINICAL HISTORY: Follow subsequent knee pain. TECHNIQUE: Three views of the bilateral knees are obtained. COMPARISON: 01/05/2017. FINDINGS: There is no acute fracture/dislocation evident in either knee. The tri-compartment joint spaces display small marginal osteophytes, mild joint space narrowing, and chondrocalcinosis of the m edial compartment on the left. Minimal atherosclerosis is seen on the right of the popliteal artery. No gross evidence of suprapatellar joint effusion bilaterally. No radiopaque foreign body noted. The re is generalized osseous demineralization. The overlying soft tissue appears unremarkable. IMPRESSION: There is no acute fracture or dislocation in either knee. Moderate tricompartmental arth rosis bilaterally.
--- NOTE | 2017-10-24 18:48 | XR ---
EXAMINATION TYPE: XR shoulder complete RT DATE OF EXAM: 10/24/2017 CLINICAL HISTORY: Fall with subsequent right shoulder pain. TECHNIQUE: Three views of the right shoulder are obtained. COMPARISON: None. FINDINGS: There is osseous demineralization, somewhat limiting evaluation. There is no acute fractur e/dislocation evident in the right shoulder. The acromioclavicular and glenohumeral joint spaces dis play moderate degenerative change. There is a possible os acromiale is incidentally seen IMPRESSION: There is no acute fracture or dislocation in the right shoulder. Moderate acromioclavicu lar and glenohumeral arthropathy.
[2017-10-24] MEDS ORDERED: AMOXIC-POT CLAV 875MG STARTER 2 EACH TABLET PO STA (19:21)
[2017-10-24 19:35] VITALS: BP 159/68; PULSE 70; RESP 18; TEMP 97.8
== END 2017-10-24 19:35 | disposition home or self-care (01) ==
LOC: EC 16:54
DX: S02.2XXA Fracture of nasal bones, initial encounter for closed fracture (principal); S02.40CA Maxillary fracture, right side, initial encounter for closed fracture; M25.511 Pain in right shoulder; M25.561 Pain in right knee; M25.562 Pain in left knee; Z79.899 Other long term (current) drug therapy; Z88.1 Allergy status to other antibiotic agents; Z88.2 Allergy status to sulfonamides; Z88.5 Allergy status to narcotic agent; Z88.8 Allergy status to other drugs, medicaments and biological substances; Z91.011 Allergy to milk products; Z91.012 Allergy to eggs; Z91.018 Allergy to other foods; W01.198A Fall on same level from slipping, tripping and stumbling with subsequent striking against other object, initial encounter; Y92.254 Theater (live) as the place of occurrence of the external cause
CPT/HCPCS: 70450; 70486; 71046; 72125; 99284

== ENCOUNTER → 2018-12-09 | Outpatient (CLI) | payer MEDICARE ==
[2018-12-09 10:16] LABS: Basophils % (A) 1 %; Eosinophils # (A) 0.3 k/uL (0-0.7); Eosinophils % (A) 4 %; HCT 41.2 % (34.0-46.0); Lymphocytes % (A) 15 %; MCH 30.3 pg (25.0-35.0); MCV 89.1 fL (80.0-100.0); Monocytes # (A) 0.3 k/uL (0-1.0); Monocytes % (A) 5 %; Neutrophils # (A) 4.6 k/uL (1.3-7.7); Neutrophils % (A) 72 %; Platelet Count 268 k/uL (150-450); RBC 4.63 m/uL (3.80-5.40); RDW 12.8 % (11.5-15.5); WBC 6.4 k/uL (3.8-10.6)
[2018-12-09 16:32] LABS: Vitamin D 25 Hydroxy 48.9 ng/mL (30.0-100.0)
[2018-12-09 16:35] LABS: DHEA Sulfate 109.1 ug/dL (26.0-430.0)
[2018-12-09 16:39] LABS: Folate, Serum >24.0 ng/mL
[2018-12-09 17:11] LABS: Hemoglobin A1C 5.8 % (4.0-6.0)
[2018-12-09 17:34] LABS: ALT 27 U/L (8-44); AST 31 U/L (13-35); African American GFR (CKD) 81.3 (60.0-200.0); Albumin/Globulin Ratio 2.25 (1.60-3.17); Alkaline Phosphatase 79 U/L (41-126); Calcium 9.8 mg/dL (8.7-10.3); Carbon Dioxide 25.6 mmol/L (21.6-31.8); Chloride 101 mmol/L (96-109); Chol/HDL Ratio 2.14; Cholesterol 229 mg/dL (0-200); Glucose 106 mg/dL (70-110); Potassium 4.7 mmol/L (3.5-5.5); Sodium 137 mmol/L (135-145); Total Bilirubin 0.4 mg/dL (0.2-1.2); Total Protein 6.5 g/dL (6.2-8.2); Triglycerides <50.0 mg/dL (0.0-149.0)
== END | disposition home or self-care (01) ==
LOC: LABWHC1 09:36
PROVIDERS: ATTEND Pediatrics
DX: E55.9 Vitamin D deficiency, unspecified (principal); K90.9 Intestinal malabsorption, unspecified; M54.5 Low back pain; R53.83 Other fatigue; Z79.899 Other long term (current) drug therapy; E78.49 Other hyperlipidemia
CPT/HCPCS: 36415; 80053; 80061; 82306; 82533; 82607; 82627; 82746; 83036; 84439; 84443; 84481; 85025; 85384; 86141

== ENCOUNTER → 2019-01-17 | Outpatient (CLI) | payer MEDICARE ==
--- NOTE | 2019-01-17 09:46 | XR ---
EXAMINATION TYPE: XR Hip LT and AP Pelvis DATE OF EXAM: 01/17/2019 COMPARISON: NONE HISTORY: Pain and instability since July 2018. TECHNIQUE: A single AP view of the pelvis is obtained. Two views of the left hip are obtained. FINDINGS: There is no acute fracture/dislocation evident in the pelvis. The sacroiliac joints appea r symmetric and unremarkable. Right hip joint shows mild axial joint space loss. Femoral head shape maintained. Left-sided pelvic phleboliths are present. Two views of left hip show advanced degenerative change with cppe-ey-igyl formation and joint space s clerosis and subchondral cystic change. There is loss of normal spherical shape superior lateral fem oral head. Overlying soft tissue is unremarkable. IMPRESSION: There is asymmetric advanced degenerative change left hip.
== END | disposition home or self-care (01) ==
LOC: LABWHC1 08:50
PROVIDERS: ATTEND Orthopaedic Surgery
DX: M16.12 Unilateral primary osteoarthritis, left hip (principal)
CPT/HCPCS: 73502

== ENCOUNTER 2019-01-30 15:10 | Inpatient (IN) | payer MEDICARE ==
[2019-02-16 09:35] VITALS: BMI 28.1
--- NOTE | 2019-02-19 12:46 | HP ---
HISTORY AND PHYSICAL REASON FOR ADMISSION: Surgery 02/20/2019 Estrellita Shaver is an 79-year-old patient seen with symptomatic left hip osteoarthritis. We discussed options for treatment. She elected to proceed with left total hip arthroplasty. Consent was obtained. Medical clearance was provided by Dr. Vogt. PAST MEDICAL HISTORY: Hyperlipidemia. PAST SURGICAL HISTORY: D and C, rotator cuff repair. MEDICATIONS: Her daily medications are none reported. ALLERGIES: BIAXIN, LEVAQUIN, CODEINE, TRAMADOL, ORAL STEROID. SOCIAL HISTORY: She denies current tobacco use. PHYSICAL EXAMINATION: Evaluation of the left hip: She has very limited range of motion with severe pain. Positive hip impingement sign. Straight leg raise is negative. Distal neurovascular exam intact. Left lower extremity is approximately 1 inch shorter than the right. RADIOGRAPHS: Radiographs of the left hip and AP pelvis revealed severe osteoarthritic changes of the left hip. IMPRESSION: Left hip osteoarthritis. PLAN: Direct anterior left total hip arthroplasty. Surgery 02/20/2019. MMODL / IJN: [id number] /
[2019-02-20] MEDS ORDERED: ACETAMINOPHEN TAB 500 MG TAB PO ONE (05:00)
[2019-02-20] MEDS ORDERED: TRANEXAMIC ACID 1,000 MG in SODIUM CHLORIDE 0.9% 100 ML IVPB ONE ×4 (05:00)
[2019-02-20] MEDS ORDERED: MELOXICAM 7.5 MG TAB PO ONE (05:00)
[2019-02-20] MEDS ORDERED: MIDAZOLAM 2 MG/2 ML VIAL IV PRN (05:51)
[2019-02-20] MEDS ORDERED: ONDANSETRON 4 MG/2 ML VIAL IVP ONE (05:51)
[2019-02-20] MEDS ORDERED: DEXAMETHASONE SOD PHOSPHATE 10 MG/ML 1 ML VIAL IV ONE (05:51)
[2019-02-20] MEDS ORDERED: LIDOCAINE 1% 20 ML VIAL (10MG/ML) FOR IV START INTRADERMA PRN (05:51)
[2019-02-20] MEDS ORDERED: SCOPOLAMINE 1.5MG/72HR PATCH TRANSDERM ONE (05:51)
[2019-02-20] MEDS ORDERED: ROPIVACAINE 246.25 MG, EPINEPHrine 0.5 MG, KETOROLAC 30 MG, cloNIDine HCL/PF 80 MCG, WA... MISCELLANE ONE ×5 (06:00)
[2019-02-20] MEDS: LACTATED RINGERS 1,000 ML IV SCH (12:22)
--- NOTE | 2019-02-20 12:31 | P.DS ---
Providers Date of admission: 02/20/19 11:14 Attending physician: Jerzy Aquino Primary care physician: [facility] Course: Date of admission: 02/20/2019 Date of discharge: [] Admission diagnosis: Status post direct anterior left total hip arthroplasty Discharge diagnosis: Same Attending physician: Dr. Aquino Surgical procedures: Direct anterior left total hip arthroplasty Brief history: Patient is a 79-year-old female with a history of aggressive primary left hip osteoarthritis. At this point patient has failed conservative treatment measures and has opted to proceed with a elective direct anterior left total hip arthroplasty . Hospital course: Details of patient's surgery can be found in operative report. Patient tolerated the procedure well and was subsequently transported to orthopedic floor. Patient's orthopeidc and medical care was provided daily. Patient had daily laboratory tests performed for evaluation of overall blood counts. Patient had daily physical therapy to include strengthening range of motion as well as education with walker ambulation. Patient was treated with Lovenox for their postoperative DVT prophylaxis during their inpatient stay. Patient was noted to have a relatively uneventful postoperative course. Patient reported satisfactory pain control with oral pain medications by postoperative day 0. Patient showed satisfactory progress with physical therapy. Patient moved steadily through the program and had no difficulty meeting the goals by postoperative day []. Given patient's otherwise satisfactory course and having met physical therapy goals, plan is to discharge patient [home] on postoperative day []. Discharge condition/disposition: Patient will be discharged [home] in stable condition. Discharge medications: Instructions are given on resumption of patient's normal daily medications per primary care recommendation, in addition patient will be prescribed []. Discharge instructions: 1. Wound care and infection precautions, keep incision dry and covered while showering, no lotions, creams, moisturizers. No soaking, tubs, pools, hottubs. Do not scrub over the incision. 2. Weight-bear [as tolerated] with walker / cane until follow-up. 3. Ice and elevate when necessary. Do not exceed 20 minutes per hour with ice pack. 4. Utilize compression sleeve until seen at first follow up appointment. 5. Visiting nursing care. 6. Home physical therapy 7. Pain meds and anticoagulants per prescription. 8. Pain medication has potential to cause constipation. Increase oral fluid and fiber intake. Contact primary care provider if you have not had a bowel movement within 48 hours after discharge 9. No anti-inflammatory medication until discussed at first post operative visit, this including Motrin, Aleve, Mobic, Diclofenac 10. Follow up in office at 2 weeks postop with Yuriy Guzmán PA-C 11. Follow up with your primary care doctor 7-10 days after discharge. 12. Contact [facility] with any questions, . Procedures: Left total knee arthroplasty Patient Condition at Discharge: Good Plan - Discharge Summary Discharge Rx Participant: No New Discharge Prescriptions: No Action Latanoprost Ophth [Xalatan 0.005%] 1 drops BOTH EYES HS Sodium Chloride 5% Ophth Soln [Julio 128] 1 drops BOTH EYES BID Cholecalciferol [Vitamin D3 (25 Mcg = 1000 Iu)] 1,000 unit PO DAILY Vitamin B Complex 1 cap PO DAILY [place]-3/Dha/Epa/Fish Oil [Fish Oil 500 mg Softgel] 2 cap PO DAILY Ascorbic Acid [Vitamin C] 2,000 mg PO DAILY Iodine Synergy 2 cap PO Q7D Ubidecarenone [Co Q-10] 100 mg PO DAILY Ultra Jenni Balance 2 tab PO DAILY Lipoic Acid [place] 1 tab PO BID-W/MEALS Phyto Multi Vitamin 1 tab PO BID-W/MEALS L-5 Mthf 2 cap PO Q7D Acetaminophen [Tylenol 8 Hour] 1,300 mg PO BID PRN PRN Reason: Pain diphenhydrAMINE [Benadryl] 25 mg PO Q6H PRN PRN Reason: allergies Metoprolol Tartrate [Lopressor] 12.5 mg PO DAILY Discharge Medication List Ascorbic Acid [Vitamin C] 2,000 mg PO DAILY 05/26/16 [History] Cholecalciferol [Vitamin D3 (25 Mcg = 1000 Iu)] 1,000 unit PO DAILY 05/26/16 [History] Iodine Synergy 2 cap PO Q7D 05/26/16 [History] Latanoprost Ophth [Xalatan 0.005%] 1 drops BOTH EYES HS 05/26/16 [History] [place]-3/Dha/Epa/Fish Oil [Fish Oil 500 mg Softgel] 2 cap PO DAILY 05/26/16 [History] Sodium Chloride 5% Ophth Soln [Julio 128] 1 drops BOTH EYES BID 05/26/16 [History] Vitamin B Complex 1 cap PO DAILY 05/26/16 [History] L-5 Mthf 2 cap PO Q7D 02/01/19 [History] Lipoic Acid [place] 1 tab PO BID-W/MEALS 02/01/19 [History] Phyto Multi Vitamin 1 tab PO BID-W/MEALS 02/01/19 [History] Ubidecarenone [Co Q-10] 100 mg PO DAILY 02/01/19 [History] Ultra Jenni Balance 2 tab PO DAILY 02/01/19 [History] Acetaminophen [Tylenol 8 Hour] 1,300 mg PO BID PRN 02/16/19 [History] diphenhydrAMINE [Benadryl] 25 mg PO Q6H PRN 02/16/19 [History] Metoprolol Tartrate [Lopressor] 12.5 mg PO DAILY 02/20/19 [History] Follow up Appointment(s)/Referral(s): Aaron Guzmán PAC [PHYSICIAN FUR SEWER] - 2 Weeks Activity/Diet/Wound Care/Special Instructions: Orthopedic Discharge Instructions: 1. Wound care and infection precautions, keep incision dry and covered while showering, no lotions, creams, moisturizers. No soaking, pools, hot tubs. Do not scrub over incision. 2. Weight-bear as tolerated with walker / cane until follow-up. 3. Ice and elevate when necessary. Do not exceed 20 minutes per hour with ice pack. 4. Utilize compression sleeve until seen at first follow up appointment. 5. Pain meds and anticoagulants per prescription. 6. Pain medication has potential to cause constipation. Increase oral fluid and fiber intake. Contact primary care provider if you have not had a bowel movement within 48 hours after discharge. 7. No anti-inflammatory medication until discussed at first post operative v isit, this including Motrin, Aleve, Mobic, Diclofenac. 8. Follow up in office at 2 weeks postop with Yuriy Guzmán PA-C 9. Follow up with your primary care doctor 7-10 days after discharge. 10. Contact [facility] with any questions, . Discharge Disposition: HOME WITH HOME HEALTH SERVICES
[2019-02-20] MEDS ORDERED: fentaNYL (PF) 50 MCG/ML 2 ML AMP ONE (13:03)
[2019-02-20] MEDS ORDERED: MIDAZOLAM 2 MG/2 ML VIAL ONE (13:03)
[2019-02-20] MEDS ORDERED: TRANEXAMIC ACID 1,000 MG/10 ML VIAL ONE (13:03)
[2019-02-20] MEDS ORDERED: SODIUM CHLORIDE 0.9% 100 ML BAG ONE (13:03)
[2019-02-20] MEDS ORDERED: LIDOCAINE 1% INJ 10MG/ML (20 ML MDV) ONE (13:03)
[2019-02-20] MEDS ORDERED: PHENYLEPHRINE-0.9% NACL SYG 1 MG/10 ML SYRINGE ONE (13:03)
[2019-02-20] MEDS ORDERED: PROPOFOL 10 MG/ML 20 ML VIAL IV ONE (13:03)
[2019-02-20] MEDS ORDERED: SUCCINYLCHOLINE CHLORIDE 100 MG/5 ML SYR IV ONE (13:03)
--- NOTE | 2019-02-20 14:50 | P.OP ---
Date of Procedure: 02/20/19 Preoperative Diagnosis: Left hip osteoarthritis Postoperative Diagnosis: Left hip osteoarthritis Procedure(s) Performed: Direct anterior left total hip arthroplasty Implants: 1. Depuy [place] KA size 12 standard collar press-fit femoral stem 2. Depuy pinnacle 52 mm multiple hole press-fit acetabular shell 3. Depuy pinnacle neutral polyethylene acetabular liner 36 mm ID 52 mm OD 4. Biolox delta ceramic femoral head +1.5 36 mm Anesthesia: LAURAA, local Surgeon: Jerzy Aquino Stone Finisher #1: Aaron Guzmán Estimated Blood Loss (ml): 250 Pathology: other (Femoral head) Condition: stable Disposition: PACU Indications for Procedure: 79-year-old patient seen with symptomatic left hip osteoarthritis. After treatment options were discussed, she elected to proceed with total hip arthroplasty. Operative Findings: See description of procedure Description of Procedure: The patient was taken to the operative suite. Patient underwent a general anesthetic by the department of anesthesia. Patient was then transferred to the [place] table. Patient was given preoperative IV antibiotics and TXA. Both lower extremities were placed in standard leg spars. The hip was then prepped and draped in the normal sterile orthopedic fashion. A standard anterior incision was made beginning 3 cm lateral and 1 cm distal to the ASIS extending 10 cm. Dissection was then carried down through the subcutaneous soft tissues down to the fascia overlying the tensor fascia amelia. An incision was now made through the fascia. Careful dissection was taken down exposing the tensor fascia amelia muscle. A Cobra retractor was now placed along the medial femoral neck and a second one along the lateral femoral neck. The venous circumflex vessels were now identified, cauterized and clipped. We identified the anterior hip capsule. An incision was made through the hip capsule along the lateral border. I performed a partial anterior capsulectomy. Retractors were now placed around t he femoral neck itself. A femoral neck cut was now made with a sagittal saw. It was completed with an osteotome at the lateral neck area. The femoral head was now removed without difficulty. The extremity was now rotated to 45 of external rotation. It was locked in position. Residual labrum was now debrided out. Serial reaming was performed of the acetabulum while Yuriy MEJIA assisted holding an anterior retractor for exposure. Once we reached the appropriate size and a trial was position and fit nicely. The appropriate size was now chosen opened and made available. It was introduced into the acetabulum without difficulty. The C-arm/fluoroscopy was now brought into the operative field. We made sure we had a true AP pelvic view. We now under direct C- arm/fluoroscopy introduced into the acetabular component with appropriate version and inclination. I held the cup in appropriate position well Yuriy MEJIA used a mallet to seat the acetabular component. I noted the component now to be well seated and stable. Acetabular cup introduce her was removed. The C-arm was pulled back. An appropriate liner was introduced and clicked into position. It was felt to be stable. At this point retractors were removed. The extremity was now placed into 120 external rotation with no traction. The leg was now dropped to the ground and adducted. Appropriate retractors were now positioned along the proximal femur. We also placed our femoral look into position. Additional capsular releasing was performed to gain access to the proximal femur. We now used a box osteotome. A canal finder was now utilized. Serial broaching was now performed with the assistance of Yuriy MEJIA tapping the broaches down with a mallet while held the broach in appropriate rotation and position. This was done until we reached the appropriate size with good overall rotational stability. Appropriate calcar planing was performed. A trial head/neck was placed into position. The hip was now reduced. The C- arm/fluoroscopy was brought back into the operative field. An AP pelvis was obtained to check her leg lengths which seemed adequately aligned and the trial components appeared well positioned. The C-arm/fluoroscopy was pulled back. Retractors were repositioned and the hip was dislocated. The leg was again taken down to the ground and adducted. Appropriate retractors were repositioned as well as the femoral hook. All trial components were removed. The femoral implant was opened along with the femoral head. The femoral implant was introduced on the appropriate handle into our pre-broached area. I held the component position well Yuriy MEJIA used a mallet to seat the femoral component. The femoral component was now noted to be well seated and stable.. The femoral head was introduced with good positioning and fixation noted. Retractors were now removed. The hip was now reduced. There appeared be good positioning of the hip confirmed on intraoperative fluoroscopy. Spot films were obtained to document this. A second gram of TXA was given. The deep and superficial soft tissues were infiltrated with local analgesic. Bipolar cautery had been utilized intermittently through the procedure for hemostasis. The wound was irrigated copiously with pulse lavage mechanical irrigation. The fascia was repaired with Vicryl suture. The subcutaneous soft tissues were repaired in layers with Vicryl suture. The skin was approximated with pernio/Dermabond. Sterile dressings were applied. Patient was then awakened, transferred to a bed and taken to recovery in stable condition. Yuriy MEJIA assisted with the complex procedure.
[2019-02-20] MEDS ORDERED: HYDROcodone/APAP 5-325MG 1 EACH TAB PO PRN (14:51)
[2019-02-20] MEDS ORDERED: NALOXONE 0.4 MG/ML 1 ML VIAL IV PRN (14:51)
[2019-02-20] MEDS ORDERED: HYDROmorphone 0.5 MG/0.5 ML SYRINGE IVP PRN ×2 (14:51)
--- NOTE | 2019-02-20 15:16 | FL ---
EXAMINATION TYPE: FL guidance operating room, XR Hip Limited LT DATE OF EXAM: 02/20/2019 CLINICAL HISTORY: Left anterior hip arthroplasty. Fluoroscopic documentation. TECHNIQUE: Fluoroscopy. COMPARISON: None. FINDINGS: Fluoroscopic guidance was provided during procedure performed by Dr. Aquino. A total o f 8 seconds of fluoroscopic time was utilized during the procedure and 1 spot images was acquired. IMPRESSION: As Above.
[2019-02-20] MEDS: HYDROmorphone 0.5 MG/0.5 ML SYRINGE IVP PRN ×3 (15:21→17:12)
[2019-02-20] MEDS ORDERED: LACTATED RINGERS 1,000 ML IV ONE ×2 (16:00)
[2019-02-20] MEDS: SODIUM CHLORIDE 0.9% 1,000 ML IV SCH (19:31)
[2019-02-20] MEDS: SENNOSIDES-DOCUSATE SODIUM 1 EACH TAB PO SCH (20:15)
[2019-02-20] MEDS: HYDROcodone/APAP 5-325MG 1 EACH TAB PO PRN (20:15)
[2019-02-20] MEDS: LATANOPROST 0.005% OPHTH DROPS 2.5 ML BTL BOTH EYES SCH (20:16)
[2019-02-20] MEDS: SODIUM CHLORIDE 5% OPHTH DROPS 15 ML BTL BOTH EYES SCH (20:16)
[2019-02-21] MEDS: HYDROmorphone 0.5 MG/0.5 ML SYRINGE IVP PRN ×2 (00:34→21:20)
[2019-02-21] MEDS: LACTATED RINGERS 1,000 ML IV SCH (05:47)
[2019-02-21] MEDS: HYDROcodone/APAP 5-325MG 1 EACH TAB PO PRN ×3 (05:48→18:35)
[2019-02-21 07:32] LABS: Basophils % (A) 0 %; Eosinophils # (A) 0.1 k/uL (0-0.7); Eosinophils % (A) 1 %; HCT 33.3 % (34.0-46.0); HGB 11.2 gm/dL (11.4-16.0); Lymphocytes # (A) 1.3 k/uL (1.0-4.8); Lymphocytes % (A) 12 %; MCH 30.7 pg (25.0-35.0); MCHC 33.7 g/dL (31.0-37.0); MCV 90.9 fL (80.0-100.0); Mean Platelet Volume 7.5; Monocytes # (A) 0.9 k/uL (0-1.0); Monocytes % (A) 8 %; Neutrophils # (A) 8.5 k/uL (1.3-7.7); Neutrophils % (A) 78 %; Platelet Count 260 k/uL (150-450); RBC 3.66 m/uL (3.80-5.40); RDW 12.5 % (11.5-15.5); WBC 10.9 k/uL (3.8-10.6)
[2019-02-21] MEDS: FAMOTIDINE 20 MG TAB PO SCH (08:25)
[2019-02-21] MEDS: METOPROLOL TARTRATE 12.5 MG TAB PO SCH (08:25)
[2019-02-21] MEDS: CHOLECALCIFEROL 1,000 UNIT TAB PO SCH (08:25)
[2019-02-21] MEDS: SODIUM CHLORIDE 5% OPHTH DROPS 15 ML BTL BOTH EYES SCH ×2 (08:25→20:11)
[2019-02-21] MEDS: ENOXAPARIN 40 MG/0.4 ML SYRINGE SQ SCH (08:25)
[2019-02-21] MEDS ORDERED: NON FORMULARY DRUG (Ubidecarenone [Co Q-10] 100 MG) PO SCH (09:00)
[2019-02-21] MEDS ORDERED: NON FORMULARY DRUG (Vitamin B Complex [Vitamin B Complex] 1 CAP) PO SCH (09:00)
[2019-02-21] MEDS ORDERED: [UNRECOGNIZED DRUG - OTHER] PO SCH (09:00)
--- NOTE | 2019-02-21 11:38 | P.CONS ---
History of Present Illness - Reason for Consult Consult date: 02/20/19 Medical management Requesting physician: Jerzy Aquino - Chief Complaint Post Left KIYA. - History of Present Illness This is an 7-year-old female with a previous medical history significant for hypertension and hypertensive cardiovascular disease, hyperlipid emia, osteoarthritis, and mild coronary artery disease of the LAD, new patient to our office, was seen preoperatively by one of my partners and she was started on small dose of beta breann Toprol 12.5 mg orally once every day for perioperative cardiac morbidity, was supposed to be started on statin however she stopped taking them due to significant myalgias and joint pain that she developed after a while, patient underwent left total hip arthroplasty. Anterior approach that was done successfully by Dr. Aquino and we were asked see the patient for medical management, patient is laying down in bed in no apparent distress, she has no chest pain or shortness breath at this time she has no abdominal pain, nausea or vomiting, her daughter was at the bedside. Review of Systems Eyes: denies blurred vision, denies bulging eye, denies decreased vision Ears: deny: decreased hearing Ears, nose, mouth and throat: Denies dysphagia, Denies neck lump, Denies sore throat Cardiovascular: Denies chest pain, Denies decreased exercise tolerance, Denies dyspnea on exertion, Denies leg edema, Denies rapid heart beat, Denies shortness of breath, Denies syncope Respiratory: Denies congestion, Denies cough, Denies cough with sputum, Denies home oxygen, Denies sleep apnea, Denies snoring, Denies wheezing Gastrointestinal: Denies abdominal pain, Denies bloating, Denies BRBPR, Denies melena, Denies nausea, Denies vomiting Genitourinary: Denies nocturia Menstruation: Reports postmenopausal Musculoskeletal: Denies myalgias Musculoskeletal: right: hip pain, absent: ankle pain, ankle stiffness, ankle swelling, elbow pain, elbow stiffness, elbow swelling, foot pain, foot stiffness, foot swelling, hand pain, hand stiffness, hand swelling, hip stiffness, hip swelling, knee pain, knee stiffness, knee swelling, shoulder pain, shoulder stiffness, shoulder swelling, wrist pain, wrist stiffness, wrist swelling Integumentary: Denies pruritus, Denies rash Neurological: Denies numbness, Denies weakness Psychiatric: Denies anxiety, Denies depression Endocrine: Denies fatigue, Denies weight change Past Medical History Past Medical History: Coronary Artery Disease (CAD), Hyperlipidemia, Hypertensio n, Osteoarthritis (OA) Additional Past Medical History / Comment(s): hx tachycardia History of Any Multi-Drug Resistant Organisms: None Reported Past Surgical History: Ablation Additional Past Surgical History / Comment(s): cardiac ablation,rot cuff repair,d&c,johnna cataracts,mole removal Past Anesthesia/Blood Transfusion Reactions: No Reported Reaction Additional Past Anesthesia/Blood Transfusion Reaction / Comm: no hx blood transfusion Past Psychological History: No Psychological Hx Reported Smoking Status: Never smoker Past Alcohol Use History: Occasional Past Drug Use History: None Reported - Past Family History Mother Family Medical History: Neurologic Disorder (Mother at age of 85 from some type of muscular dystrophy.) Father Family Medical History: Congestive Heart Failure (CHF) (Father at age of 83 from congestive heart failure.) Sister(s) Family Medical History: Osteoarthritis (OA) (Patient has 2 sisters with osteoarthritis.) Daughter(s) Family Medical History: Cancer (Patient has 3 daughters and one of them is a survivor for breast cancer in a mouth cancer.) Son(s) Family Medical History: No Reported History (Patient had one son who in an accident.) Medications and Allergies Home Medications Medication Instructions Recorded Confirmed Type Ascorbic Acid [Vitamin C] 2,000 mg PO DAILY 05/26/16 02/20/19 History Cholecalciferol [Vitamin D3 (25 1,000 unit PO DAILY 05/26/16 02/20/19 History Mcg = 1000 Iu)] Iodine Synergy 2 cap PO Q7D 05/26/16 02/20/19 History Latanoprost Ophth [Xalatan 0.005%] 1 drops BOTH EYES HS 05/26/16 02/20/19 History Simms-3/Dha/Epa/Fish Oil [Fish Oil 2 cap PO DAILY 05/26/16 02/20/19 History 500 mg Softgel] Sodium Chloride 5% Ophth Soln 1 drops BOTH EYES BID 05/26/16 02/20/19 History [Julio 128] Vitamin B Complex 1 cap PO DAILY 05/26/16 02/20/19 History L-5 Mthf 2 cap PO Q7D 02/01/19 02/20/19 History Lipoic Acid [place] 1 tab PO BID-W/MEALS 02/01/19 02/20/19 History Phyto Multi Vitamin 1 tab PO BID-W/MEALS 02/01/19 02/20/19 History Ubidecarenone [Co Q-10] 100 mg PO DAILY 02/01/19 02/20/19 History Ultra Jenni Balance 2 tab PO DAILY 02/01/19 02/20/19 History Acetaminophen [Tylenol 8 Hour] 1,300 mg PO BID PRN 02/16/19 02/20/19 History diphenhydrAMINE [Benadryl] 25 mg PO Q6H PRN 02/16/19 02/16/19 History Metoprolol Tartrate [Lopressor] 12.5 mg PO DAILY 02/20/19 02/20/19 History Allergies Allergy/AdvReac Type Severity Reaction Status Date / Time clarithromycin [From Biaxin] Allergy Unknown Rapid Verified 02/20/19 12:00 Heart Rate, depression, difficulty sleeping codeine Allergy Unknown Nausea, Verified 02/20/19 12:00 Dizziness egg Allergy Unknown Phlegm Verified 02/20/19 12:00 levofloxacin [From Levaquin] Allergy Unknown Depression, Verified 02/20/19 12:00 Crying, Difficulty Sleeping milk Allergy Unknown Phlegm Verified 02/20/19 12:00 pantoprazole [From Protonix] Allergy Unknown Elevated Verified 02/20/19 12:00 Blood Sugar sulfamethoxazole Allergy Unknown Abdominal Verified 02/20/19 12:00 [From Bactrim] Pain, NAUSEA tramadol Allergy Unknown Dizziness Verified 02/20/19 12:00 trimethoprim [From Bactrim] Allergy Unknown Abdominal Verified 02/20/19 12:00 Pain, NAUSEA wheat Allergy Unknown Phlegm Verified 02/20/19 12:00 azithromycin Allergy Rapid Verified 02/20/19 12:00 [From Zithromax Z-Josesito] Heart Rate lactose Allergy Phlegm Verified 02/20/19 12:00 metoprolol Allergy Phlegm Verified 02/20/19 12:00 tree nut [Nut] Allergy Anaphylaxis Verified 02/20/19 12:00 atorvastatin [From Lipitor] AdvReac aching all Verified 02/20/19 12:00 over oral steroids Allergy Severe Abdominal Uncoded 02/20/19 12:00 Pain Physical Exam Vitals: Vital Signs Temp Pulse Pulse Resp BP BP Pulse Ox 02/20/19 17:20 16 98 02/20/19 16:30 75 16 126/60 99 02/20/19 16:07 71 16 140/65 99 02/20/19 15:52 72 16 140/65 98 02/20/19 15:37 75 16 132/79 96 02/20/19 15:22 77 16 149/63 96 02/20/19 15:07 97.8 F 86 16 156/71 96 02/20/19 11:55 98.6 F 77 16 186/76 98 Intake and Output 02/20/19 02/20/19 02/20/19 06:59 14:59 22:59 Intake Total 950 200 Output Total 250 Balance 700 200 Intake: IV 950 200 Output: Estimated Blood Loss 250 Other: Weight 83.915 kg 83.915 kg - Constitutional General appearance: average body habitus, no acute distress - EENT Eyes: anicteric sclerae, EOMI, PERRLA, no ptosis, no scleral icterus, normal appearance ENT: hearing grossly normal, NA/AT, normal oropharynx, no thrush Ears: bilateral: normal - Neck Neck: no lymphadenopathy, normal ROM, no rigidity, no stridor, no thyromegaly Carotids: bilateral: upstroke normal Thyroid: bilateral: normal size - Respiratory Respiratory: bilateral: diminished, negative: dullness, rales, rhonchi, wheezing, prolonged expiration, prolonged inspiration - Cardiovascular Rhythm: regular Heart sounds: normal: S1, S2 Abnormal Heart Sounds: no systolic murmur, no S3 Gallop, no S4 Gallop - Gastrointestinal General gastrointestinal: normal bowel sounds, soft, no splenomegaly, no tenderness, no umbilical hernia, no ventral hernia - Integumentary Integumentary: normal, normal turgor - Neurologic Neurologic: CNII-XII intact - Musculoskeletal Musculoskeletal: gait normal, strength equal bilaterally - Psychiatric Psychiatric: A&O x's 3, appropriate affect, intact judgment & insight Results CBC & Chem 7: 02/21/19 06:58 Assessment and Plan Assessment: Assessment and plan: 1. Post operative day #0 status post left total hip arthroplasty via anterior approach. Continue incentive spirometer to reduce the incidence of atelectasis and hospital-acquired pneumonia, continue current pain management as outlined by orthopedic surgery, continue DVT prophylaxis currently on Lovenox 40 mg Subcutaneously Every 24 hours this will be switched to either aspirin or Xarelto for the next month, physical therapy evaluation tomorrow morning, patient will likely be able to be discharged from the next 24 hours. 2. CAD and mild hypertension. Continue Toprol-XL 12.5 mg orally once every day. 3. Hyperlipidemia. Patient was not able to tolerate statin. 4. Glaucoma. Continue Xalatan 1 drop in both eyes at bedtime. 5. Dry eyes. Continue with refresh tears. 6. GI prophylaxis. Continue with Pepcid 20 mg orally once every day. 7. Vitamin D deficiency. Continue vitamin D3 1000 units once every day. 8. DVT prophylaxis. Continue Lovenox 40 mg subcutaneously once every day this can be transitioned to either aspirin versus Xarelto for one month. 9. Thank you for the consult we will follow with you.
--- NOTE | 2019-02-21 12:57 | P.PN ---
Subjective Progress Note Date: 02/21/19 Principal diagnosis: status post left hip arthroplasty Evaluated at bedside, she is doing very well. She's ambulated with therapy. She has no chest pain or shortness of breath. Her pain is well-controlled. Objective - Vital Signs Vital signs: Vital Signs Temp 97.7 F 02/21/19 07:00 Pulse 78 02/21/19 07:22 Resp 16 02/21/19 07:22 BP 125/69 02/21/19 07:00 Pulse Ox 95 02/21/19 07:00 Intake & Output 02/20/19 02/21/19 02/21/19 18:59 06:59 18:59 Intake Total 1150 Output Total 250 300 300 Balance 900 -300 -300 Weight 83.915 kg Intake: IV 1150 Output: Urine 300 300 Estimated Blood Loss 250 Other: Voiding Method Toilet # Voids 1 1 - Exam Left lower extremity: Incision is clean, dry, and intact. The exofin fusion tape is in good condition. There is minimal soft tissue swelling and ecchymosis surrounding the medial and lateral aspects of the incision. Calf is soft, no tenderness with p alpation. Plantar flexion, dorsiflexion, EHL, FHL are intact. Sensory exam to light touch throughout the extremity is intact, dorsal pedis pulses 2+. - Labs CBC & Chem 7: 02/21/19 06:58 Labs: Abnormal Lab Results - Last 24 Hours (Table) 02/21/19 Range/Units 06:58 WBC 10.9 H (3.8-10.6) k/uL RBC 3.66 L (3.80-5.40) m/uL Hgb 11.2 L (11.4-16.0) gm/dL Hct 33.3 L (34.0-46.0) % Neutrophils # 8.5 H (1.3-7.7) k/uL Assessment and Plan Plan: Assessment: Postop day 1 status post left direct anterior total hip arthroplasty Plan: Pain control, continue current medication GI and DVT prophylaxis, continue current medication Wound care instructions discussed Continue work with physical therapy Medical recommendations Plan for discharge to home tomorrow Time with Patient: Less than 30
--- NOTE | 2019-02-21 13:39 | P.PN ---
Subjective Progress Note Date: 02/21/19 This is an 7-year-old female with a previous medical history significant for hypertension and hypertensive cardiovascular disease, hyperlipidemia, osteoarthritis, and mild coronary artery disease of the LAD, new patient to our office, was seen preoperatively by one of my partners and she was started on small dose of beta breann Toprol 12.5 mg orally once every day for perioperative cardiac morbidity, was supposed to be started on statin however she stopped taking them due to significant myalgias and joint pain that she developed after a while, patient underwent left total hip arthroplasty. Anterior approach that was done successfully by Dr. Aquino and we were asked see the patient for medical management, patient is laying down in bed in no apparent distress, she has no chest pain or shortness breath at this time she has no abdominal pain, nausea or vomiting, her daughter was at the bedside. 02/21: Patient states that she is feeling better today. She walked in the hallway with physical therapy. Physical therapy is recommending subacute rehab. Patient has been afebrile, blood pressure 125/69, heart rate 78, pulse ox 95% on room air. Patient states that she has been using some spirometry. WBC 10.9, hemoglobin 11.2, platelet count 260. Patient states that she does not have any pain at rest only with ambulation. Review of Systems Eyes: denies blurred vision, denies bulging eye, denies decreased vision We'll Denies dysphagia, Denies neck lump, Denies sore throat Cardiovascular: Denies chest pain, Denies decreased exercise tolerance, Denies dyspnea on exertion, Denies leg edema, Denies rapid heart beat, Denies shortness of breath, Denies syncope Respiratory: Denies congestion, Denies cough, Denies cough with sputum, Denies home oxygen, Denies sleep apnea, Denies snoring, Denies wheezing Gastrointestinal: Denies abdominal pain, Denies bloating, Denies BRBPR, Denies melena, Denies nausea, Denies vomiting Genitourinary: Denies nocturia Menstruation: Reports postmenopausal Musculoskeletal: Denies myalgias Musculoskeletal: right: hip pain, absent: ankle pain, ankle stiffness, ankle swelling, elbow pain, elbow stiffness, elbow swelling, foot pain, foot stiffness, foot swelling, hand pain, hand stiffness, hand swelling, hip stiffness, hip swelling, knee pain, knee stiffness, knee swelling, shoulder pain, shoulder stiffness, shoulder swelling, wrist pain, wrist stiffness, wrist swelling Integumentary: Denies pruritus, Denies rash Neurological: Denies numbness, Denies weakness Psychiatric: Denies anxiety, Denies depression Endocrine: Denies fatigue, Denies weight change Objective - Vital Signs Vital signs: Vital Signs Temp 97.7 F 02/21/19 07:00 Pulse 78 02/21/19 07:22 Resp 16 02/21/19 07:22 BP 125/69 02/21/19 07:00 Pulse Ox 95 02/21/19 07:00 Intake & Output 02/20/19 02/21/19 02/21/19 18:59 06:59 18:59 Intake Total 1150 Output Total 250 300 300 Balance 900 -300 -300 Weight 83.915 kg Intake: IV 1150 Output: Urine 300 300 Estimated Blood Loss 250 Other: Voiding Method Toilet # Voids 1 1 - Exam - Constitutional General appearance: average body habitus, no acute distress, resting in recliner. - EENT Eyes: anicteric sclerae, EOMI, PERRLA, no ptosis, no scleral icterus, normal appearance ENT: hearing grossly normal, NA/AT, normal oropharynx, no thrush Ears: bilateral: normal - Neck Neck: no lymphadenopathy, normal ROM, no rigidity, no stridor, no thyromegaly Carotids: bilateral: upstroke normal Thyroid: bilateral: normal size - Respiratory Respiratory: bilateral: diminished, negative: dullness, rales, rhonchi, wheezing, prolonged expiration, prolonged inspiration - Cardiovascular Rhythm: regular Heart sounds: normal: S1, S2 Abnormal Heart Sounds: no systolic murmur, no S3 Gallop, no S4 Gallop - Gastrointestinal General gastrointestinal: normal bowel sounds, soft, no splenomegaly, no tenderness, no umbilical hernia, no ventral hernia - Integumentary Integumentary: normal, normal turgor - Neurologic Neurologic: CNII-XII intact - Musculoskeletal Musculoskeletal: gait normal, strength equal bilaterally - Psychiatric Psychiatric: A&O x's 3, appropriate affect, intact judgment & insight - Labs CBC & Chem 7: 02/21/19 06:58 Labs: Abnormal Lab Results - Last 24 Hours (Table) 02/21/19 Range/Units 06:58 WBC 10.9 H (3.8-10.6) k/uL RBC 3.66 L (3.80-5.40) m/uL Hgb 11.2 L (11.4-16.0) gm/dL Hct 33.3 L (34.0-46.0) % Neutrophils # 8.5 H (1.3-7.7) k/uL Assessment and Plan Plan: 1. Post operative day #1 status post left total hip arthroplasty via anterior approach. Continue incentive spirometer to reduce the incidence of atelectasis and hospital-acquired pneumonia, continue current pain management as outlined by orthopedic surgery, continue DVT prophylaxis currently on Lovenox 40 mg Subcutaneously Every 24 hours this will be switched to either aspirin or Xarelto for the next month, physical therapy evaluation tomorrow morning, patient will likely be able to be discharged from the next 24 hours. 2. CAD and mild hypertension. Continue Toprol-XL 12.5 mg orally once every day. 3. Hyperlipidemia. Patient was not able to tolerate statin. 4. Glaucoma. Continue Xalatan 1 drop in both eyes at bedtime. 5. Dry eyes. Continue with refresh tears. 6. GI prophylaxis. Continue with Pepcid 20 mg orally once every day. 7. Vitamin D deficiency. Continue vitamin D3 1000 units once every day. 8. DVT prophylaxis. Continue Lovenox 40 mg subcutaneously once every day this can be transitioned to either aspirin versus Xarelto for one month. Discharge plan: PT is recommended subacute rehab. Impression and plan of care have been directed as dictated by the signing physician. Negar Forbes nurse practitioner acting as scribe for signing physician.
[2019-02-21] MEDS: SODIUM CHLORIDE 0.9% 1,000 ML IV SCH (20:07)
[2019-02-21] MEDS: SENNOSIDES-DOCUSATE SODIUM 1 EACH TAB PO SCH (20:11)
[2019-02-21] MEDS: LATANOPROST 0.005% OPHTH DROPS 2.5 ML BTL BOTH EYES SCH (20:11)
[2019-02-22] MEDS: HYDROcodone/APAP 5-325MG 1 EACH TAB PO PRN ×4 (00:42→19:08)
[2019-02-22] MEDS: HYDROmorphone 0.5 MG/0.5 ML SYRINGE IVP PRN ×3 (05:11→22:07)
[2019-02-22] MEDS: ONDANSETRON 4 MG/2 ML VIAL IVP PRN (05:11)
[2019-02-22] MEDS: LACTATED RINGERS 1,000 ML IV SCH (07:24)
[2019-02-22] MEDS: SODIUM CHLORIDE 0.9% 1,000 ML IV SCH (07:29)
[2019-02-22] MEDS: METOPROLOL TARTRATE 12.5 MG TAB PO SCH (08:12)
[2019-02-22] MEDS: CHOLECALCIFEROL 1,000 UNIT TAB PO SCH (08:12)
[2019-02-22] MEDS: ENOXAPARIN 40 MG/0.4 ML SYRINGE SQ SCH (08:12)
[2019-02-22] MEDS: FAMOTIDINE 20 MG TAB PO SCH (08:12)
[2019-02-22] MEDS: SODIUM CHLORIDE 5% OPHTH DROPS 15 ML BTL BOTH EYES SCH ×2 (08:17→19:09)
--- NOTE | 2019-02-22 10:35 | P.PN ---
Subjective Progress Note Date: 02/22/19 Principal diagnosis: status post left hip arthroplasty Evaluated at bedside, she is doing very well. She's ambulated with therapy. She has no chest pain or shortness of breath. Her pain is well-controlled. Objective - Vital Signs Vital signs: Vital Signs Temp 97.6 F 02/22/19 07:00 Pulse 75 02/22/19 07:00 Resp 16 02/22/19 07:00 BP 128/72 02/22/19 07:00 Pulse Ox 97 02/22/19 07:00 Intake & Output 02/21/19 02/22/19 02/22/19 18:59 06:59 18:59 Intake Total 800 Output Total 300 Balance 500 Intake: Intake, IV Titration 400 Amount Sodium Chloride 0.9% 1, 400 000 ml @ 50 mls/hr IV . Q20H [facility] Rx#:[id number] Oral 400 Output: Urine 300 Other: Voiding Method Toilet Toilet Toilet # Voids 3 1 - Exam Left lower extremity: Incision is clean, dry, and intact. The exofin fusion tape is in good condition. There is minimal soft tissue swelling and ecchymosis surrounding the medial and lateral aspects of the incision. Calf is soft, no tenderness with palpation. Plantar flexion, dorsiflexion, EHL, FHL are intact. Sensory exam to light touch throughout the extremity is intact, dorsal pedis pulses 2+. - Labs CBC & Chem 7: 02/21/19 06:58 Assessment and Plan Plan: Assessment: Postop day #2 status post left direct anterior total hip arthroplasty Plan: Pain control, continue current medication GI and DVT prophylaxis, continue current medication Wound care instructions discussed Continue work with physical therapy Medical recommendations Patient has required some extra assistance with regards to getting out of bed, ambulating, etc. Prior auth has been placed for rehab placement. Hopeful for discharge there today Time with Patient: Less than 30
--- NOTE | 2019-02-22 13:34 | P.PN ---
Subjective Progress Note Date: 02/22/19 This is an 7-year-old female with a previous medical history significant for hypertension and hypertensive cardiovascular disease, hyperlipidemia, osteoarthritis, and mild coronary artery disease of the LAD, new patient to our office, was seen preoperatively by one of my partners and she was started on small dose of beta breann Toprol 12.5 mg orally once every day for perioperative cardiac morbidity, was supposed to be started on statin however she stopped taking them due to significant myalgias and joint pain that she developed after a while, patient underwent left total hip arthroplasty. Anterior approach that was done successfully by Dr. Aquino and we were asked see the patient for medical management, patient is laying down in bed in no apparent distress, she has no chest pain or shortness breath at this time she has no abdominal pain, nausea or vomiting, her daughter was at the bedside. 02/21: Patient states that she is feeling better today. She walked in the hallway with physical therapy. Physical therapy is recommending subacute rehab. Patient has been afebrile, blood pressure 125/69, heart rate 78, pulse ox 95% on room air. Patient states that she has been using some spirometry. WBC 10.9, hemoglobin 11.2, platelet count 260. Patient states that she does not have any pain at rest only with ambulation. 02/22: Patient states that she had a rough night and her pain was uncontrolled. She states that it is much better today. She was unable to sleep during the night due to pain. Patient is planning to go to [facility] for subacute rehab. Patient is cleared medically for discharge today medication reconciliation has been reviewed. Patient will be followed at the [facility] by Dr. Kate. Review of Systems Eyes: denies blurred vision, denies bulging eye, denies decreased vision We'll Denies dysphagia, Denies neck lump, Denies sore throat Cardiovascular: Denies chest pain, Denies decreased exercise tolerance, Denies dyspnea on exertion, Denies leg edema, Denies rapid heart beat, Denies shortness of breath, Denies syncope Respiratory: Denies congestion, Denies cough, Denies cough with sputum, Denies home oxygen, Denies sleep apnea, Denies snoring, Denies wheezing Gastrointestinal: Denies abdominal pain, Denies bloating, Denies BRBPR, Denies melena, Denies nausea, Denies vomiting Genitourinary: Denies nocturia Musculoskeletal: Denies myalgias Musculoskeletal: right: hip pain, absent: ankle pain, ankle stiffness, ankle swelling, elbow pain, elbow stiffness, elbow swelling, foot pain, foot stiffness, foot swelling, hand pain, hand stiffness, hand swelling, hip stiffness, hip swelling, knee pain, knee stiffness, knee swelling, shoulder pain, shoulder stiffness, shoulder swelling, wrist pain, wrist stiffness, wrist swelling Integumentary: Denies pruritus, Denies rash Neurological: Denies numbness, Denies weakness Psychiatric: Denies anxiety, Denies depression Endocrine: Denies fatigue, Denies weight change Objective - Vital Signs Vital signs: Vital Signs Temp 97.6 F 02/22/19 07:00 Pulse 75 02/22/19 07:00 Resp 16 02/22/19 07:00 BP 128/72 02/22/19 07:00 Pulse Ox 97 02/22/19 07:00 Intake & Output 02/21/19 02/22/19 02/22/19 18:59 06:59 18:59 Intake Total 800 Output Total 300 Balance 500 Intake: Intake, IV Titration 400 Amount Sodium Chloride 0.9% 1, 400 000 ml @ 50 mls/hr IV . Q20H [facility] Rx#:[id number] Oral 400 Output: Urine 300 Other: Voiding Method Toilet Toilet Toilet # Voids 3 1 - Exam - Constitutional General appearance: average body habitus, no acute distress. - EENT Eyes: anicteric sclerae, EOMI, PERRLA, no ptosis, no scleral icterus, normal appearance ENT: hearing grossly normal, NA/AT, normal oropharynx, no thrush Ears: bilateral: normal - Neck Neck: no lymphadenopathy, normal ROM, no rigidity, no stridor, no thyromegaly Carotids: bilateral: upstroke normal Thyroid: bilateral: normal size - Respiratory Respiratory: bilateral: diminished, negative: dullness, rales, rhonchi, wheezing, prolonged expiration, prolonged inspiration - Cardiovascular Rhythm: regular Heart sounds: normal: S1, S2 Abnormal Heart Sounds: no systolic murmur, no S3 Gallop, no S4 Gallop - Gastrointestinal General gastrointestinal: normal bowel sounds, soft, no splenomegaly, no tenderness, no umbilical hernia, no ventral hernia - Integumentary Integumentary: normal, normal turgor - Neurologic Neurologic: CNII-XII intact - Musculoskeletal Musculoskeletal: gait normal, strength equal bilaterally - Psychiatric Psychiatric: A&O x's 3, appropriate affect, intact judgment & insight - Labs CBC & Chem 7: 02/21/19 06:58 Assessment and Plan Plan: 1. Post operative day #1 status post left total hip arthroplasty via anterior approach. Continue incentive spirometer to reduce the incidence of atelectasis and hospital-acquired pneumonia, continue current pain management as outlined by orthopedic surgery, continue DVT prophylaxis currently on Lovenox 40 mg Subcutaneously Every 24 hours this will be switched to either aspirin or Xarelto for the next month, physical therapy evaluation tomorrow morning, patient will likely be able to be discharged from the next 24 hours. 2. CAD and mild hypertension. Continue Toprol-XL 12.5 mg orally once every day. 3. Hyperlipidemia. Patient was not able to tolerate statin. 4. Glaucoma. Continue Xalatan 1 drop in both eyes at bedtime. 5. Dry eyes. Continue with refresh tears. 6. GI prophylaxis. Continue with Pepcid 20 mg orally once every day. 7. Vitamin D deficiency. Continue vitamin D3 1000 units once every day. 8. DVT prophylaxis. Continue Lovenox 40 mg subcutaneously once every day this can be transitioned to either aspirin at discharge. Discharge plan: [facility] under the care of Dr. Kate. Impression and plan of care have been directed as dictated by the signing physician. Negar Forbes nurse practitioner acting as scribe for signing physician.
[2019-02-22] MEDS: SENNOSIDES-DOCUSATE SODIUM 1 EACH TAB PO SCH (19:08)
[2019-02-22] MEDS: LATANOPROST 0.005% OPHTH DROPS 2.5 ML BTL BOTH EYES SCH (19:09)
[2019-02-23 00:47] VITALS: RESP 15
[2019-02-23] MEDS: HYDROcodone/APAP 5-325MG 1 EACH TAB PO PRN (01:36)
[2019-02-23] MEDS: SODIUM CHLORIDE 0.9% 1,000 ML IV SCH (05:45)
[2019-02-23] MEDS: ONDANSETRON 4 MG/2 ML VIAL IVP PRN (05:46)
[2019-02-23] MEDS: LACTATED RINGERS 1,000 ML IV SCH (07:07)
[2019-02-23] MEDS ORDERED: HYDROcodone/APAP 7.5-325MG 1 EACH TAB PO PRN (07:41)
[2019-02-23] MEDS: METOPROLOL TARTRATE 12.5 MG TAB PO SCH (07:49)
[2019-02-23] MEDS: CHOLECALCIFEROL 1,000 UNIT TAB PO SCH (07:49)
[2019-02-23] MEDS: FAMOTIDINE 20 MG TAB PO SCH (07:49)
[2019-02-23] MEDS: HYDROcodone/APAP 7.5-325MG 1 EACH TAB PO PRN ×2 (07:49→14:40)
[2019-02-23] MEDS: SODIUM CHLORIDE 5% OPHTH DROPS 15 ML BTL BOTH EYES SCH (07:50)
[2019-02-23] MEDS: ENOXAPARIN 40 MG/0.4 ML SYRINGE SQ SCH (07:50)
[2019-02-23 08:08] LABS: Basophils % (A) 0 %; Eosinophils # (A) 0.2 k/uL (0-0.7); Eosinophils % (A) 3 %; HCT 35.3 % (34.0-46.0); HGB 11.4 gm/dL (11.4-16.0); Lymphocytes # (A) 0.6 k/uL (1.0-4.8); Lymphocytes % (A) 7 %; MCH 29.7 pg (25.0-35.0); MCHC 32.2 g/dL (31.0-37.0); MCV 92.2 fL (80.0-100.0); Mean Platelet Volume 7.5; Monocytes # (A) 0.6 k/uL (0-1.0); Monocytes % (A) 8 %; Neutrophils # (A) 6.7 k/uL (1.3-7.7); Neutrophils % (A) 80 %; Platelet Count 220 k/uL (150-450); RBC 3.83 m/uL (3.80-5.40); RDW 12.4 % (11.5-15.5); WBC 8.3 k/uL (3.8-10.6)
[2019-02-23 09:05] VITALS: BP 128/61; PULSE 80; TEMP 99
--- NOTE | 2019-02-23 10:53 | P.PN ---
Subjective Progress Note Date: 02/23/19 Principal diagnosis: status post left hip arthroplasty Evaluated at bedside, she is doing very well. She's ambulated with therapy. She has no chest pain or shortness of breath. Her pain is well-controlled. Objective - Vital Signs Vital signs: Vital Signs Temp 99.0 F 02/23/19 07:40 Pulse 80 02/23/19 07:40 Resp 15 02/23/19 07:40 BP 128/61 02/23/19 07:40 Pulse Ox 96 02/23/19 07:40 Intake & Output 02/22/19 02/23/19 02/23/19 18:59 06:59 18:59 Intake Total 800 180 Balance 800 180 Intake: Oral 800 180 Other: Voiding Method Toilet Toilet Toilet # Voids 1 - Exam Left lower extremity: Incision is clean, dry, and intact. The exofin fusion tape is in good condition. There is minimal soft tissue swelling and ecchymosis surrounding the medial and lateral aspects of the incision. Calf is soft, no tenderness with palpation. Plantar flexion, dorsiflexion, EHL, FHL are intact. Sensory exam to light touch throughout the extremity is intact, dorsal pedis pulses 2+. - Labs CBC & Chem 7: 02/23/19 07:20 Labs: Abnormal Lab Results - Last 24 Hours (Table) 02/23/19 Range/Units 07:20 Lymphocytes # 0.6 L (1.0-4.8) k/uL Assessment and Plan Plan: Assessment: Postop day #3 status post left direct anterior total hip arthroplasty Plan: Pain control, continue current medication GI and DVT prophylaxis, continue current medication Wound care instructions discussed Continue work with physical therapy Medical recommendations Plan for discharge to rehab today Time with Patient: Less than 30
--- NOTE | 2019-02-23 13:16 | P.PN ---
Subjective Progress Note Date: 02/23/19 This is an 7-year-old female with a previous medical history significant for hypertension and hypertensive cardiovascular disease, hyperlipidemia, osteoarthritis, and mild coronary artery disease of the LAD, new patient to our office, was seen preoperatively by one of my partners and she was started on small dose of beta breann Toprol 12.5 mg orally once every day for perioperative cardiac morbidity, was supposed to be started on statin however she stopped taking them due to significant myalgias and joint pain that she developed after a while, patient underwent left total hip arthroplasty. Anterior approach that was done successfully by Dr. Aquino and we were asked see the patient for medical management, patient is laying down in bed in no apparent distress, she has no chest pain or shortness breath at this time she has no abdominal pain, nausea or vomiting, her daughter was at the bedside. 02/21: Patient states that she is feeling better today. She walked in the hallway with physical therapy. Physical therapy is recommending subacute rehab. Patient has been afebrile, blood pressure 125/69, heart rate 78, pulse ox 95% on room air. Patient states that she has been using some spirometry. WBC 10.9, hemoglobin 11.2, platelet count 260. Patient states that she does not have any pain at rest only with ambulation. 02/22: Patient states that she had a rough night and her pain was uncontrolled. She states that it is much better today. She was unable to sleep during the night due to pain. Patient is planning to go to [facility] for subacute rehab. Patient is cleared medically for discharge today medication reconciliation has been reviewed. [facility]. Kate. 02/23: Patient's discharge was held yesterday to make sure her pain is well controlled before she leaves the hospital. Patient states that she is feeling a lot better today. She is concerned that she had a fast heart rate for brief period after taking 2 Monclova. No tachycardia has been documented. Recommend the patient take only one Monclova. Patient denies having a bowel movement. She usually has a bowel movement every day. Patient is cleared by medicine for discharge with no change in medication reconciliation. Patient will be followed at [facility] by Dr. Kate. Review of Systems CONSTITUTIONAL: denies fever, denies chills, denies weight loss Eyes: denies blurred vision, denies bulging eye, denies decreased vision ENT: Denies dysphagia, Denies neck lump, Denies sore throat Cardiovascular: Denies chest pain, Denies decreased exercise tolerance, Denies dyspnea on exertion, Denies leg edema, Denies rapid heart beat, Denies shortness of breath, Denies syncope Respiratory: Denies congestion, Denies cough, Denies cough with sputum, Denies home oxygen, Denies sleep apnea, Denies snoring, Denies wheezing Gastrointestinal: Denies abdominal pain, Denies bloating, Denies BRBPR, Denies melena, Denies nausea, Denies vomiting Genitourinary: Denies nocturia Musculoskeletal: Denies myalgias Musculoskeletal: right: hip pain, absent: ankle pain, ankle stiffness, ankle swelling, elbow pain, elbow stiffness, elbow swelling, foot pain, foot stiffness, foot swelling, hand pain, hand stiffness, hand swelling, hip stiffness, hip swelling, knee pain, knee stiffness, knee swelling, shoulder pain, shoulder stiffness, shoulder swelling, wrist pain, wrist stiffness, wrist swelling Integumentary: Denies pruritus, Denies rash Neurological: Denies numbness, Denies weakness Psychiatric: Denies anxiety, Denies depression Endocrine: Denies fatigue, Denies weight change Objective - Vital Signs Vital signs: Vital Signs Temp 99.0 F 02/23/19 07:40 Pulse 80 02/23/19 07:40 Resp 15 02/23/19 07:40 BP 128/61 02/23/19 07:40 Pulse Ox 96 02/23/19 07:40 Intake & Output 02/22/19 02/23/19 02/23/19 18:59 06:59 18:59 Intake Total 800 180 Balance 800 180 Intake: Oral 800 180 Other: Voiding Method Toilet Toilet # Voids 1 - Exam - Constitutional General appearance: average body habitus, no acute distress. Patient is found sitting in recliner. She appears to be comfortable. - EENT Eyes: anicteric sclerae, EOMI, PERRLA, no ptosis, no scleral icterus, normal appearance ENT: hearing grossly normal, NA/AT, normal oropharynx, no thrush Ears: bilateral: normal - Neck Neck: no lymphadenopathy, normal ROM, no rigidity, no stridor, no thyromegaly Carotids: bilateral: upstroke normal Thyroid: bilateral: normal size - Respiratory Respiratory: bilateral: diminished, negative: dullness, rales, rhonchi, wheezing, prolonged expiration, prolonged inspiration - Cardiovascular Rhythm: regular Heart sounds: normal: S1, S2 Abnormal Heart Sounds: no systolic murmur, no S3 Gallop, no S4 Gallop - Gastrointestinal General gastrointestinal: normal bowel sounds, soft, no splenomegaly, no ten derness, no umbilical hernia, no ventral hernia - Integumentary Integumentary: normal, normal turgor - Neurologic Neurologic: CNII-XII intact - Musculoskeletal Musculoskeletal: gait normal, strength equal bilaterally - Psychiatric Psychiatric: A&O x's 3, appropriate affect, intact judgment & insight - Labs CBC & Chem 7: 02/23/19 07:20 Labs: Abnormal Lab Results - Last 24 Hours (Table) 02/23/19 Range/Units 07:20 Lymphocytes # 0.6 L (1.0-4.8) k/uL Assessment and Plan Plan: 1. Post operative day #1 status post left total hip arthroplasty via anterior approach. Continue incentive spirometer to reduce the incidence of atelectasis and hospital-acquired pneumonia, continue current pain management as outlined by orthopedic surgery, continue DVT prophylaxis currently on Lovenox 40 mg Subcutaneously Every 24 hours this will be switched to either aspirin. 2. CAD and mild hypertension. Continue Toprol-XL 12.5 mg orally once every day. 3. Hyperlipidemia. Patient was not able to tolerate statin. 4. Glaucoma. Continue Xalatan 1 drop in both eyes at bedtime. 5. Dry eyes. Continue with refresh tears. 6. GI prophylaxis. Continue with Pepcid 20 mg orally once every day. 7. Vitamin D deficiency. Continue vitamin D3 1000 units once every day. 8. DVT prophylaxis. Continue Lovenox 40 mg subcutaneously once every day this can be transitioned to either aspirin at discharge. Discharge plan: [facility] under the care of Dr. Kate. Impression and plan of care have been directed as dictated by the signing physician. Negar Forbes nurse practitioner acting as scribe for signing physician.
== END 2019-02-23 15:37 | DRG 470 ==
LOC: 2ORMAIN 02-20 11:14 → 4SSUR 02-20 16:35
PROVIDERS: ADMIT Orthopaedic Surgery; ATTEND Orthopaedic Surgery
PROC: 0SRB04A Replacement of Left Hip Joint with Ceramic on Polyethylene Synthetic Substitute, Uncemented, Open Approach (ICD-10-PCS; principal; 2019-02-20 12:25)
DX: M16.12 Unilateral primary osteoarthritis, left hip (principal); E55.9 Vitamin D deficiency, unspecified; E78.5 Hyperlipidemia, unspecified; H40.9 Unspecified glaucoma; I11.9 Hypertensive heart disease without heart failure; I25.10 Atherosclerotic heart disease of native coronary artery without angina pectoris; Z82.49 Family history of ischemic heart disease and other diseases of the circulatory system; Z96.652 Presence of left artificial knee joint; Z88.1 Allergy status to other antibiotic agents; Z88.5 Allergy status to narcotic agent; Z88.8 Allergy status to other drugs, medicaments and biological substances; Z88.2 Allergy status to sulfonamides; Z91.012 Allergy to eggs; Z91.011 Allergy to milk products; Z91.018 Allergy to other foods; R68.89 Other general symptoms and signs
CPT/HCPCS: 73501; 85025; 86850; 86900; 86901; 88305; 88311

== ENCOUNTER 2019-02-01 07:14 | Emergency (ER) | payer MEDICARE ==
--- NOTE | 2019-02-01 07:45 | ED ---
General Adult HPI - General Chief complaint: Extremity Problem,Nontraumatic Stated complaint: left arm weakness Time Seen by Provider: 02/01/19 07:28 Source: patient Mode of arrival: wheelchair Limitations: no limitations - History of Present Illness Initial comments: Dictation was produced using [employer] dictation software. please excuse any grammatical, word or spelling errors. Chief Complaint: 78-year-old female with past medical history of dyslipidemia and hypertension presents with generalized weakness and left arm pain. History of Present Illness: 8-year-old female presents today with left arm pain since 4:30 this morning. Patient states she woke up with the symptoms. Patient never expense anything like this before. Denies any swelling, discoloration to the left upper extremity. No exacerbating or mitigating factors. She states that her whole left arm hurts. Describes describes it as a discomfort. Denies any numbness and paresthesias to the extremity. Patient also has been feeling generally weak for the last several days. She's been having these symptoms intermittently for the last several weeks. She believes that he could be secondary to food. Patient's chest pain. No shortness of breath. The ROS documented in this emergency department record has been reviewed and confirmed by me. Those systems with pertinent positive or negative responses have been documented in the HPI. All other systems are other negative and/or noncontributory. PHYSICAL EXAM: General Impression: Alert and oriented x3, not in acute distress HEENT: Normocephalic atraumatic, extra-ocular movements intact, pupils equal and reactive to light bilaterally, mucous membranes moist. Cardiovascular: Heart regular rate and rhythm, S1&S2 audible, no murmurs, rubs or gallops Chest: Lungs clear to auscultation bilaterally, no rhonchi, no wheeze, no rales Abdomen: Bowel sounds present, abdomen soft, non-tender, non-distended, no organomegaly Musculoskeletal: Pulses present and equal in all extremities, no peripheral edema Extremity exam: Intact pulses symmetrical, no discoloration of left extremity, all joints ranged with no calm medications. No palpable tenderness. Motor: no focal deficits noted Neurological: CN II-XII grossly intact, no focal motor or sensory deficits noted Skin: Intact with no visualized rashes Psych: Normal affect and mood ED course: 78-year-old female presents with vague left upper extremity pain and generalized weakness. His upon arrival are within acceptable limits. Patient's well-appearing. Physical examination is benign. At this point there is no concerning features of patient's left upper extremity pain. EKGs benign. Labs were unremarkable. CBC, coag panel, metabolic panel is unremarkable. Urinalysis shows 1+ ketones. There may be a component of dehydration. Patient observed in the emergency department for several hours with no changes in her medical status. She was offered analgesia however refused. Patient is cleared for discharge. She is advised follow-up with primary care physician. Return parameters discussed. All questions answered. EKG interpretation: Ventricular rate 66, normal sinus rhythm,. Interval 172, care is 90, QTC 429. No WA prolongation, no QTC prolongation, no ST or T-wave changes noted. . Overall, this EKG is unremarkable - Related Data Home Medications Medication Instructions Recorded Confirmed Ascorbic Acid [Vitamin C] 2,000 mg PO DAILY 05/26/16 02/01/19 Cholecalciferol [Vitamin D3 (25 1,000 unit PO DAILY 05/26/16 02/01/19 Mcg = 1000 Iu)] Iodine Synergy 40 mcg PO DIRECTED 05/26/16 02/01/19 Latanoprost Ophth [Xalatan 0.005%] 1 drops BOTH EYES HS 05/26/16 02/01/19 [place]-3/Dha/Epa/Fish Oil [Fish Oil 2 cap PO DAILY 05/26/16 02/01/19 500 mg Softgel] Sodium Chloride 5% Ophth Soln 1 drops BOTH EYES BID 05/26/16 02/01/19 [Julio 128] Vitamin B Complex 1 cap PO DAILY 05/26/16 02/01/19 Amoxicillin 500 mg PO TID 02/01/19 02/01/19 L-5 Mthf 2 cap PO DIRECTED 02/01/19 02/01/19 Lidocaine 5% Patch [Lidoderm] 1 patch TOPICAL DAILY 02/01/19 02/01/19 Lipoic Acid [facility] 1 tab PO BID-W/MEALS 02/01/19 02/01/19 Metoprolol Tartrate [Lopressor] 25 mg PO DIRECTED 02/01/19 02/01/19 Phyto Multi Vitamin 1 tab PO BID-W/MEALS 02/01/19 02/01/19 Prasterone (Dhea)/Calcium Carb 0.5 tab PO DAILY@1200 02/01/19 02/01/19 [Dhea 10 mg Tablet] Prasterone (Dhea)/Calcium Carb 1 tab PO DAILY 02/01/19 02/01/19 [Dhea 10 mg Tablet] Ubidecarenone [Co Q-10] 100 mg PO DAILY 02/01/19 02/01/19 Ultra Jenni Balance 2 tab PO DAILY 02/01/19 02/01/19 Allergies Allergy/AdvReac Type Severity Reaction Status Date / Time clarithromycin [From Biaxin] Allergy Unknown Rapid Verified 02/01/19 09:37 Heart Rate, depression, difficulty sleeping codeine Allergy Unknown Nausea, Verified 02/01/19 09:37 Dizziness egg Allergy Unknown Phlegm Verified 02/01/19 07:25 levofloxacin [From Levaquin] Allergy Unknown Depression, Verified 02/01/19 09:37 Crying, Difficulty Sleeping milk Allergy Unknown Phlegm Verified 02/01/19 09:37 pantoprazole [From Protonix] Allergy Unknown Elevated Verified 02/01/19 09:37 Blood Sugar sulfamethoxazole Allergy Unknown Abdominal Verified 02/01/19 09:37 [From Bactrim] Pain, NAUSEA tramadol Allergy Unknown Dizziness Verified 02/01/19 09:37 trimethoprim [From Bactrim] Allergy Unknown Abdominal Verified 02/01/19 09:37 Pain, NAUSEA wheat Allergy Unknown Phlegm Verified 02/01/19 09:37 azithromycin Allergy Rapid Verified 02/01/19 09:37 [From Zithromax Z-Josesito] Heart Rate tree nut [Nut] Allergy Anaphylaxis Verified 02/01/19 09:37 atorvastatin [From Lipitor] AdvReac aching all Verified 02/01/19 09:37 over oral steroids Allergy Severe Abdominal Uncoded 02/01/19 07:25 Pain Review of Systems ROS Statement: Those systems with pertinent positive or pertinent negative responses have been documented in the HPI. ROS Other: All systems not noted in ROS Statement are negative. Past Medical History Past Medical History: Hyperlipidemia, Hypertension History of Any Multi-Drug Resistant Organisms: None Reported Past Surgical History: Ablation, Joint Replacement Additional Past Surgical History / Comment(s): cardiac ablation Past Psychological History: No Psychological Hx Reported Smoking Status: Never smoker Past Alcohol Use History: Occasional Past Drug Use History: None Reported General Exam Limitations: no limitations Course Vital Signs 02/01/19 02/01/19 07:21 09:16 Temperature 97.3 F L Pulse Rate 73 68 Respiratory 16 16 Rate Blood Pressure 167/81 156/85 O2 Sat by Pulse 99 97 Oximetry Medical Decision Making - Lab Data Result diagrams: 02/01/19 08:03 02/01/19 08:03 Lab Results 02/01/19 02/01/19 02/01/19 Range/Units 08:03 08:03 08:03 WBC 9.1 (3.8-10.6) k/uL RBC 4.70 (3.80-5.40) m/uL Hgb 14.5 (11.4-16.0) gm/dL Hct 42.1 (34.0-46.0) % MCV 89.6 (80.0-100.0) fL MCH 30.8 (25.0-35.0) pg MCHC 34.4 (31.0-37.0) g/dL RDW 12.4 (11.5-15.5) % Plt Count 292 (150-450) k/uL Neutrophils % 83 % Lymphocytes % 8 % Monocytes % 5 % Eosinophils % 2 % Basophils % 0 % Neutrophils # 7.6 (1.3-7.7) k/uL Lymphocytes # 0.7 L (1.0-4.8) k/uL Monocytes # 0.4 (0-1.0) k/uL Eosinophils # 0.2 (0-0.7) k/uL Basophils # 0.0 (0-0.2) k/uL PT 9.7 (9.0-12.0) sec INR 0.9 (<1.2) APTT 25.3 (22.0-30.0) sec Sodium 136 L (137-145) mmol/L Potassium 4.2 (3.5-5.1) mmol/L Chloride 99 (98-107) mmol/L Carbon Dioxide 25 (22-30) mmol/L Anion Gap 12 mmol/L BUN 17 (7-17) mg/dL Creatinine 0.57 (0.52-1.04) mg/dL Est GFR (CKD-EPI)AfAm >90 (>60 ml/min/1.73 sqM) Est GFR (CKD-EPI)NonAf 89 (>60 ml/min/1.73 sqM) Glucose 111 H (74-99) mg/dL Calcium 9.9 (8.4-10.2) mg/dL Magnesium 1.9 (1.6-2.3) mg/dL Creatine Kinase 57 (30-135) U/L Urine Color Urine Appearance (Clear) Urine pH (5.0-8.0) Ur Specific [place] (1.001-1.035) Urine Protein (Negative) Urine Glucose (UA) (Negative) Urine Ketones (Negative) Urine Blood (Negative) Urine Nitrite (Negative) Urine Bilirubin (Negative) Urine Urobilinogen (<2.0) mg/dL Ur Leukocyte Esterase (Negative) 02/01/19 Range/Units 10:54 WBC (3.8-10.6) k/uL RBC (3.80-5.40) m/uL Hgb (11.4-16.0) gm/dL Hct (34.0-46.0) % MCV (80.0-100.0) fL MCH (25.0-35.0) pg MCHC (31.0-37.0) g/dL RDW (11.5-15.5) % Plt Count (150-450) k/uL Neutrophils % % Lymphocytes % % Monocytes % % Eosinophils % % Basophils % % Neutrophils # (1.3-7.7) k/uL Lymphocytes # (1.0-4.8) k/uL Monocytes # (0-1.0) k/uL Eosinophils # (0-0.7) k/uL Basophils # (0-0.2) k/uL PT (9.0-12.0) sec INR (<1.2) APTT (22.0-30.0) sec Sodium (137-145) mmol/L Potassium (3.5-5.1) mmol/L Chloride (98-107) mmol/L Carbon Dioxide (22-30) mmol/L Anion Gap mmol/L BUN (7-17) mg/dL Creatinine (0.52-1.04) mg/dL Est GFR (CKD-EPI)AfAm (>60 ml/min/1.73 sqM) Est GFR (CKD-EPI)NonAf (>60 ml/min/1.73 sqM) Glucose (74-99) mg/dL Calcium (8.4-10.2) mg/dL Magnesium (1.6-2.3) mg/dL Creatine Kinase (30-135) U/L Urine Color Yellow Urine Appearance Clear (Clear) Urine pH 7.5 (5.0-8.0) Ur Specific [place] 1.023 (1.001-1.035) Urine Protein Negative (Negative) Urine Glucose (UA) Negative (Negative) Urine Ketones 1+ H (Negative) Urine Blood Negative (Negative) Urine Nitrite Negative (Negative) Urine Bilirubin Negative (Negative) Urine Urobilinogen <2.0 (<2.0) mg/dL Ur Leukocyte Esterase Negative (Negative) Disposition Clinical Impression: Arm pain Disposition: HOME SELF-CARE Condition: Good Instructions (If sedation given, give patient instructions): Arm Pain (ED) Is patient prescribed a controlled substance at d/c from ED?: No Referrals: Reid Lemus MD [Primary Care Provider] - 1-2 days Time of Disposition: 11:37
[2019-02-01 08:23] LABS: Basophils % (A) 0 %; Eosinophils # (A) 0.2 k/uL (0-0.7); Eosinophils % (A) 2 %; HCT 42.1 % (34.0-46.0); HGB 14.5 gm/dL (11.4-16.0); Lymphocytes # (A) 0.7 k/uL (1.0-4.8); Lymphocytes % (A) 8 %; MCH 30.8 pg (25.0-35.0); MCHC 34.4 g/dL (31.0-37.0); MCV 89.6 fL (80.0-100.0); Mean Platelet Volume 6.6; Monocytes # (A) 0.4 k/uL (0-1.0); Monocytes % (A) 5 %; Neutrophils # (A) 7.6 k/uL (1.3-7.7); Neutrophils % (A) 83 %; Platelet Count 292 k/uL (150-450); RDW 12.4 % (11.5-15.5); WBC 9.1 k/uL (3.8-10.6)
[2019-02-01 08:35] LABS: INR 0.9 (<1.2); Partial Thromboplastin Time 25.3 sec (22.0-30.0); Prothrombin Time 9.7 sec (9.0-12.0)
[2019-02-01 08:38] LABS: African American GFR (CKD) >90 (>60 ml/min/1.73 sqM); Anion Gap 12 mmol/L; Blood Urea Nitrogen 17 mg/dL (7-17); Calcium 9.9 mg/dL (8.4-10.2); Carbon Dioxide 25 mmol/L (22-30); Chloride 99 mmol/L (98-107); Creatine Kinase 57 U/L (30-135); Glucose 111 mg/dL (74-99); Magnesium 1.9 mg/dL (1.6-2.3); Non-African American GFR(CKD) 89 (>60 ml/min/1.73 sqM); Potassium 4.2 mmol/L (3.5-5.1); Sodium 136 mmol/L (137-145)
[2019-02-01 11:29] LABS: Appearance,Urine Clear (Clear); Bilirubin,Urine Negative (Negative); Blood,Urine Negative (Negative); Color,Urine Yellow; Glucose,Urine (UA) Negative (Negative); Ketones,Urine 1+ (Negative); Leukocyte Esterase,Urine Negative (Negative); Nitrite,Urine Negative (Negative); PH, Urine 7.5 (5.0-8.0); Protein,Urine Negative (Negative); Specific Gravity,Urine 1.023 (1.001-1.035); Urobilinogen,Urine <2.0 mg/dL (<2.0)
[2019-02-01 11:50] VITALS: BP 176/96; PULSE 78; RESP 18; TEMP 97.5
== END 2019-02-01 11:51 | disposition home or self-care (01) ==
LOC: EC 07:14
DX: M79.602 Pain in left arm (principal); R82.4 Acetonuria; R53.1 Weakness; R07.9 Chest pain, unspecified; I10 Essential (primary) hypertension; Z88.1 Allergy status to other antibiotic agents; Z88.2 Allergy status to sulfonamides; Z88.5 Allergy status to narcotic agent; Z88.8 Allergy status to other drugs, medicaments and biological substances; Z91.011 Allergy to milk products; Z91.012 Allergy to eggs; Z91.018 Allergy to other foods; Z79.52 Long term (current) use of systemic steroids; Z79.899 Other long term (current) drug therapy; Z98.890 Other specified postprocedural states; Z53.20 Procedure and treatment not carried out because of patient's decision for unspecified reasons
CPT/HCPCS: 36415; 80048; 81003; 82550; 83735; 85025; 85610; 85730; 93005; 99283

== ENCOUNTER → 2019-02-10 | Outpatient (CLI) | payer MEDICARE ==
[2019-02-10 08:34] LABS: Basophils % (A) 0 %; Eosinophils # (A) 0.2 k/uL (0-0.7); Eosinophils % (A) 3 %; HCT 40.1 % (34.0-46.0); HGB 13.5 gm/dL (11.4-16.0); Lymphocytes % (A) 18 %; MCH 30.5 pg (25.0-35.0); MCHC 33.8 g/dL (31.0-37.0); MCV 90.3 fL (80.0-100.0); Mean Platelet Volume 6.4; Monocytes # (A) 0.4 k/uL (0-1.0); Monocytes % (A) 7 %; Neutrophils # (A) 3.8 k/uL (1.3-7.7); Neutrophils % (A) 68 %; Platelet Count 339 k/uL (150-450); RBC 4.44 m/uL (3.80-5.40); RDW 12.3 % (11.5-15.5); WBC 5.6 k/uL (3.8-10.6)
[2019-02-10 08:38] LABS: INR 0.9 (<1.2); Prothrombin Time 9.8 sec (9.0-12.0)
[2019-02-10 08:43] LABS: Potassium 4.7 mmol/L (3.5-5.1)
== END | disposition home or self-care (01) ==
LOC: LABPAT 07:45
PROVIDERS: ATTEND Orthopaedic Surgery
DX: Z01.812 Encounter for preprocedural laboratory examination (principal); M16.12 Unilateral primary osteoarthritis, left hip; Z79.01 Long term (current) use of anticoagulants
CPT/HCPCS: 36415; 80051; 85025; 85610; 87070

== ENCOUNTER → 2019-12-14 | Outpatient (CLI) | payer MEDICARE ==
--- NOTE | 2019-12-14 12:20 | BD ---
EXAMINATION TYPE: Axial Bone Density DATE OF EXAM: 12/14/2019 COMPARISON: NONE CLINICAL HISTORY: Height: 5 FT 7 IN Weight: 192 FRAX RISK QUESTIONS: Alcohol (3 or more units per day): NO Family History (Parent hip fracture): NO Glucocorticoids (More than 3mos): NO (Ex: prednisone, prednisolone, methylprednisolone, dexamethasone, and hydrocortisone). History of Fracture in Adulthood: YES Secondary Osteoporosis: 1. Type 1 Diabetes: NO 2. Hyperthyroidism: NO 3. Menopause before 45: NO 4. Malnutrition: NO 5. Chronic liver disease: NO Rheumatoid Arthritis: NO Current Tobacco Use: NO RISK FACTORS HISTORY OF: Surgery to Spine/Hip(right/left)/Wrist (right/left): HIP REPLACEMENT LEFT When: FEB 2019 Family History of Osteoporosis: YES Active: YES Postmenopausal woman: BETWEEN AGE 45-50 Lost more than 2 inches in height since high school: YES MEDICATIONS: Additional Medications: EYE MEDS Additional History: EXAM MEASUREMENTS: Bone mineral densitometry was performed using the Z Plane System. Bone mineral density as measured about the Lumbar spine is: ----- L1-L4(G/cm2): 1.121 T Score Values are as follows: ----- L2: -1.4 ----- L3: -1.2 ----- L4: 0.9 ----- L1-L4: -0.5 BASELINE Bone mineral density about the R hip (g/cm2): 0.843 T Score values are as follows: -----R Neck: -1.4 -----R Total: -1.6 BASELINE IMPRESSION: Osteopenia NOTE: T-SCORE=SD OF THE YOUNG ADULT MEAN.
== END | disposition home or self-care (01) ==
LOC: RADBDWWP 10:22
PROVIDERS: ATTEND Internal Medicine Geriatric Medicine
DX: M85.80 Other specified disorders of bone density and structure, unspecified site (principal)
CPT/HCPCS: 77080

== ENCOUNTER → 2020-08-02 | Outpatient (CLI) | payer MEDICARE | END | disposition home or self-care (01) | LOC: LABPAT 10:08 | PROVIDERS: ATTEND Orthopaedic Surgery | DX: Z01.818 Encounter for other preprocedural examination (principal); M17.12 Unilateral primary osteoarthritis, left knee | CPT/HCPCS: 87070; 93005 ==

== ENCOUNTER 2020-08-26 10:56 | Observation (INO) | payer MEDICARE ==
[2020-08-21 10:05] VITALS: BMI 28.4
--- NOTE | 2020-08-25 09:13 | HP ---
HISTORY AND PHYSICAL REASON FOR ADMISSION: Surgery scheduled for 08/26/2020. HISTORY OF PRESENT ILLNESS: Estrellita Shaver is an 80-year-old patient seen with symptomatic left knee osteoarthritis. After having treatment options discussed, she elected to proceed with left total knee arthroplasty. Consent was obtained. Medical clearance was provided by Dr. Lemus. PAST MEDICAL HISTORY: Hyperlipidemia. PAST SURGICAL HISTORY: Left total knee arthroplasty, rotator cuff repair, D and C. MEDICATIONS: Vitamins. ALLERGIES: BIAXIN, LEVAQUIN, CODEINE, PROTONIX, TRAMADOL, STEROID, BACTRIM. SOCIAL HISTORY: She denies tobacco use. PHYSICAL EVALUATION OF THE RIGHT KNEE: Range of motion is -3/4 to 115. Mild effusion. Tenderness medial joint line. Crepitus medial patellofemoral compartments with range of motion. Pain with patellofemoral compression. Ligaments stable. Hip rotation without pain. Her distal neurovascular exam is intact. RADIOGRAPHS: Radiographs of the left knee reveal severe osteoarthritic changes. IMPRESSION: Left knee osteoarthritis. PLAN: Left total knee arthroplasty. Surgery is 08/26/2020. MMODL / IJN: [id number] /
[~2020-08-26 10:56] MED LIST changes: +ACETAMINOPHEN TAB 500 MG TAB PO PRN; -ALPRAZolam 0.25 MG TAB PO PRN; -ALPRAZolam 0.5 MG TAB PO PRN; -ASPIRIN 325 MG TAB PO STA; -ATORVASTATIN 80 MG TAB PO STA; +MELOXICAM 7.5 MG TAB PO PRN; -NITROGLYCERIN SL TABS 0.4 MG TAB SUBLINGUAL PRN; +ROPIVACAINE/EPI/CLONIDINE/KET 50 ML SYRINGE MISCELLANE PRN; -SODIUM CHLORIDE 0.9% 1,000 ML in EMPTY BAG 1 BAG IV ONE; +TRANEXAMIC ACID 1,000 MG in SODIUM CHLORIDE 0.9% 100 ML IVPB PRN
[2020-08-26] MEDS ORDERED: ONDANSETRON 4 MG/2 ML VIAL ONE (11:16)
[2020-08-26] MEDS ORDERED: DEXAMETHASONE SOD PHOSPHATE 4 MG/ML 1 ML VIAL IV ONE (11:19)
[2020-08-26] MEDS ORDERED: ONDANSETRON 4 MG/2 ML VIAL IVP ONE (11:19)
[2020-08-26] MEDS ORDERED: MIDAZOLAM 2 MG/2 ML VIAL IV PRN (11:19)
[2020-08-26] MEDS ORDERED: LIDOCAINE 1% (10MG/ML) FOR IV START INTRADERMA PRN (11:19)
[2020-08-26] MEDS: LACTATED RINGERS 1,000 ML IV SCH (11:47)
[2020-08-26] MEDS ORDERED: MIDAZOLAM 2 MG/2 ML VIAL IV ONE (12:22)
[2020-08-26] MEDS ORDERED: MIDAZOLAM 2 MG/2 ML VIAL ONE (12:51)
[2020-08-26] MEDS ORDERED: TRANEXAMIC ACID 1,000 MG/10 ML VIAL ONE (12:51)
[2020-08-26] MEDS ORDERED: ROPIVACAINE 5 MG/ML 30 ML VIAL ONE (12:51)
[2020-08-26] MEDS ORDERED: fentaNYL (PF) 50 MCG/ML 2 ML AMP ONE (12:51)
[2020-08-26] MEDS ORDERED: SODIUM CHLORIDE 0.9% 100 ML BAG ONE (12:51)
[2020-08-26] MEDS ORDERED: PROPOFOL 10 MG/ML 20 ML VIAL IV ONE (12:51)
[2020-08-26] MEDS ORDERED: ceFAZolin 1,000 MG in SODIUM CHLORIDE 0.9% 1,000 ML IRRIGATION ONE (13:21)
[2020-08-26] MEDS ORDERED: ROPIVACAINE 0.2%-NS ON-Q PUMP 1,090 MG, EMPTY PAIN BALL 1 EACH MISCELLANE PRN (13:49)
--- NOTE | 2020-08-26 13:52 | P.ANPRN ---
Procedure Note - Anesthesia - Nerve Block Performed Left Adductor Canal Infusion Time Out Performed: Yes (1226) Date of Procedure: 08/26/20 Procedure Start Time: 12:26 Procedure Stop Time: 12:35 Location of Patient: PreOp Indication: Acute Post-Operative Pain, Dx/Pain Location (Left Knee), Requested by Surgeon Specifically requested for management of pain by DrDavid: Jerzy Aquino Sedation Type: Sedate with meaningful contact maintained Preparation: Sterile Prep, Sterile Dressing Position: Supine Catheter: Indwelling Needle Types: On-Q Needle Gauge: 18 Ultrasound used to visualize needle placement: Yes Ultrasound used to observe medication spread: Yes Injectate: 0.5% Ropivacaine (see comment for volume) (15 cc) Blood Aspirated: No Pain Paresthesia on Injection Noted: No Resistance on Injection: Normal Image Stored and Saved: Yes Events: Uneventful and Well Tolerated Left iPack Single Time Out Performed: Yes Date of Procedure: 08/26/20 Location of Patient: PreOp Indication: Acute Post-Operative Pain, Requested by Surgeon Specifically requested for management of pain by DrDavid: Jerzy Aquino Sedation Type: Sedate with meaningful contact maintained Preparation: Sterile Prep Position: Right Lateral Catheter: None Needle Types: Pajunk Needle Gauge: 21 Ultrasound used to visualize needle placement: Yes Ultrasound used to observe medication spread: Yes Injectate: 0.5% Ropivacaine (see comment for volume) (15 cc) Blood Aspirated: No Pain Paresthesia on Injection Noted: No Resistance on Injection: Normal Image Stored and Saved: Yes Events: Uneventful and Well Tolerated
[2020-08-26] MEDS ORDERED: ONDANSETRON 4 MG/2 ML VIAL IVP PRN (14:26)
[2020-08-26] MEDS ORDERED: NALOXONE 0.4 MG/ML 1 ML VIAL IV PRN (14:26)
[2020-08-26] MEDS ORDERED: traMADol 50 MG TAB PO PRN (14:26)
--- NOTE | 2020-08-26 14:26 | P.OP ---
Date of Procedure: 08/26/20 Preoperative Diagnosis: Left knee osteoarthritis Postoperative Diagnosis: Left knee osteoarthritis Procedure(s) Performed: Left total knee arthroplasty Implants: 1. Depuy attune size 5 narrow left cruciate retaining cemented femur 2. Depuy attune size 5 fixed bearing cemented tibial baseplate 3. Depuy attune size 5 fixed bearing cruciate retaining polyethylene tibial insert 4. Depuy attune 38 mm all polyethylene cemented patella Anesthesia: regional (Adductor canal catheter, I pack block), spinal Surgeon: Jerzy Aquino System Validation Engineer #1: Aaron Guzmán Estimated Blood Loss (ml): 45 Pathology: other (Bone) Condition: stable Disposition: PACU Indications for Procedure: 80-year-old patient seen with symptomatic left knee osteoarthritis. After treatment options were discussed, she elected to proceed with total knee arthroplasty. Operative Findings: See description of procedure Description of Procedure: Patient was taken to the operative suite after having an adductor canal catheter placed by the department of anesthesia. Patient underwent a spinal anesthetic by the department of anesthesia. Patient was given preoperative IV intake antibiotics and TXA. A well-padded tourniquet was placed about the left lower extremity. The lower extremity was then prepped and draped in the normal sterile orthopedic fashion. The extremity was elevated, a tourniquet was insufflated to 300. A standard anterior incision was made sharply through skin. Dissection was taken down through the subcutaneous soft tissues down to the extensor mechanism. A medial arthrotomy was performed, patella was everted and knee was flexed. There was advanced osteoarthritis noted. I introduced my distal intramedullary femoral drill. I then introduced the distal femoral cutting jig. Yuriy MEJIA secured the cutting jig with 2 pins. I held retractors in position while Yuriy MEJIA performed the distal femoral resection through the guide area we now removed her distal femoral cutting guide. We now placed our 4-in-1 femoral cutting block and positioned and it was secured with 2 pins by Yuriy MEJIA while I held the block in position. The distal femoral finishing was now completed. A proximal tibial cutting guide was positioned. I held the guide in the appropriate position with both hands well Yuriy MEJIA inserted stabilizing pins into the guide. Proximal tibial cut was made. We now placed a trial femoral component into position, along with an appropriate size tibial tray and insert. We now took the knee through range of motion and had full extension good flexion and good overall soft tissue balance noted. The patella was everted and stabilized with 2 towel clips held by Yuriy MEJIA while I performed a flush with patellar quad tendon utilizing a fresh sawblade. We templated the patella, appropriate drill holes were made. An appropriate trial patella was positioned, knee was taken through full range of motion with the patella tracking very nicely. The trial patella was removed. Drill holes were made through the femoral component. All trial components were removed after marking off the appropriate rotation of the tibia. Retractors were now positioned along the proximal tibia. An appropriate keel punch was made with the appropriate size tibial guide by myself on Yuriy MEJIA assisted by holding retractors. At this point appropriate size implants were chosen and opened. The joint was irrigated copiously with pulse lavage mechanical irrigation. The posterior capsule was infiltrated with local analgesic. The wound was irrigated with pulse lavage mechanical irrigation. We mixed antibiotic methylmethacrylate. We placed the knee into flexion. We placed multiple retractors assisted by Yuriy MEJIA to expose the proximal tibia. Once the methyl methacrylate was ready, the tibial component was cemented into place removing any excess methylmethacrylate form by both myself and Yuriy MEJIA. The femoral component was cemented into place removing the removing any excess methylmethacrylate performed by both myself and Yuriy MEJIA. We then inserted the appropriate size polyethylene tibial insert. We made sure that it was locked into position. We took the knee into full extension, and then back in a flexion making sure we had removed any excess methylmethacrylate. The patellar component was then cemented down and secured with clamp. Excess methylmethacrylate removed. We kept the knee in full extension, patellar clamp in position until methylmethacrylate had hardened. Once it had hardened the p atellar clamp was removed. The knee was taken through full range of motion. The patella tracked nicely. There was good soft tissue balancing. The tourniquet was now released. Additional hemostasis was achieved via electrocautery. A second gram of TXA was given. The wound again was irrigated with pulse lavage mechanical irrigation. The superficial soft tissues were infiltrated local analgesic. The extensor mechanism was repaired with Ethibond. We checked the repair with range of motion and it was stable. The subcutaneous soft tissues were repaired with Vicryl in layers. The skin was approximated with pernio/Dermabond. Sterile dressings were applied followed by loose web roll and Rogelio bandage. The patient was transferred to a bed, and taken to recovery in stable and satisfactory condition. Yuriy MEJIA assisted with this complex procedure.
--- NOTE | 2020-08-26 15:20 | XR ---
EXAMINATION TYPE: XR knee limited LT DATE OF EXAM: 08/26/2020 CLINICAL HISTORY: Left knee pain and arthritis status post total knee replacement. TECHNIQUE: Portable AP and crosstable lateral views of the left knee are obtained immediately postop eratively. COMPARISON: 01/05/2017 FINDINGS: Metallic hardware from total left knee arthroplasty is seen and appears satisfactory in al ignment and position. There is evidence of recent surgery with diffuse subcutaneous gas and joint ef fusion with gas noted. IMPRESSION: METALLIC HARDWARE FROM TOTAL left KNEE ARTHROPLASTY IS SATISFACTORY IN ALIGNMENT.
[2020-08-26] MEDS ORDERED: HYDROmorphone 0.5 MG/0.5 ML SYRINGE IVP ONE ×2 (16:22)
[2020-08-26] MEDS: HYDROmorphone 0.5 MG/0.5 ML SYRINGE IVP PRN ×2 (16:53→17:35)
[2020-08-26] MEDS ORDERED: LACTATED RINGERS 1,000 ML IV ONE ×3 (16:57)
[2020-08-26] MEDS: SODIUM CHLORIDE 0.9% 1,000 ML IV SCH (19:31)
[2020-08-26] MEDS: ACETAMINOPHEN TAB 325 MG TAB PO PRN ×2 (19:39→23:32)
[2020-08-26] MEDS: hydrOXYzine pamoate 25 MG CAP PO PRN ×2 (19:40→23:33)
[2020-08-26] MEDS: SENNOSIDES-DOCUSATE SODIUM 1 EACH TAB PO SCH (20:43)
[2020-08-27] MEDS: ACETAMINOPHEN TAB 325 MG TAB PO PRN ×2 (02:33→05:52)
[2020-08-27] MEDS: hydrOXYzine pamoate 25 MG CAP PO PRN ×3 (02:34→11:33)
[2020-08-27] MEDS: ENOXAPARIN 40 MG/0.4 ML SYRINGE SQ SCH (04:08)
[2020-08-27] MEDS: SODIUM CHLORIDE 0.9% 1,000 ML IV SCH ×2 (04:11→22:33)
[2020-08-27] MEDS ORDERED: HYDROcodone/APAP 7.5-325MG 1 EACH TAB PO PRN (06:50)
--- NOTE | 2020-08-27 10:10 | P.PN ---
Progress Note - Text Patient was seen at 6:34 AM in the morning. Postoperative day # 1 status post total knee arthroplasty, on adductor canal perineural catheter placed for postoperative analgesia. Ropivacaine 0.2% 8 mL per hour through ON-Q pump continuous infusion. Pain control fair. On visual analog scale 5/10 Patient is taking PRN oral pain medications. Catheter site: Looks Ok. There is no erythema or tenderness. Continue with the current pain management plan and will follow.
[2020-08-27 10:21] LABS: Basophils # (A) 0.01 X 10*3/uL (0.00-0.10); Basophils % (A) 0.1 %; Eosinophils # (A) 0.17 X 10*3/uL (0.04-0.35); Eosinophils % (A) 1.7 %; HCT 34.9 % (37.2-46.3); HGB 11.5 g/dL (12.0-15.0); Lymphocytes # (A) 0.56 X 10*3/uL (0.90-5.00); Lymphocytes % (A) 5.5 %; MCH 30.3 pg (27.0-32.0); MCV 91.8 fL (80.0-97.0); Mean Platelet Volume 11.1 fL (9.5-12.2); Monocytes # (A) 0.91 X 10*3/uL (0.20-1.00); Neutrophils # (A) 8.48 X 10*3/uL (1.80-7.70); Neutrophils % (A) 83.4 %; Platelet Count 219 X 10*3/uL (140-440); RDW 13.2 % (11.5-14.5); WBC 10.16 X 10*3/uL (4.50-10.00)
--- NOTE | 2020-08-27 10:21 | P.PN ---
Subjective Progress Note Date: 08/27/20 Principal diagnosis: Status post left total knee arthroplasty patient was examined today at bedside, she is resting in her hospital chair. Patient does have increasing pain today, started last night and has progressively worse. She did ambulate with th she is needing hardware to help with standing up and sitting down. She denies any headaches, lightheadedness, chest pain or shortness of breath.erapy. Objective - Vital Signs Vital signs: Vital Signs Temp 97.9 F 08/27/20 07:46 Pulse 68 08/27/20 07:46 Resp 18 08/27/20 07:46 BP 129/70 08/27/20 07:46 Pulse Ox 96 08/27/20 07:46 Intake & Output 08/26/20 08/27/20 08/27/20 18:59 06:59 18:59 Intake Total 1201 Output Total 45 Balance 1156 Weight 84.822 kg Intake: IV 1201 Output: Estimated Blood Loss 45 Other: # Voids 3 - Exam Left lower extremity: Incision is clean, dry, and intact. The [exofin fusion tape] is in good condition. [There is minimal soft tissue swelling and ecchymosis surrounding the medial and lateral aspects of the incision.] Calf is soft, no tenderness with palpation. Plantar flexion, dorsiflexion, EHL, FHL are intact. Sensory exam to light touch throughout the extremity is intact, [dorsal pedis pulses 2+.] Assessment and Plan Assessment: postoperative day #1 status post left total knee arthroplasty Plan: pain control, did increase her [place] 7.5 mg to 1-2 tablets every 6 hours Icing and elevating techniques were discussed GI and DVT prophylaxis, continue with current medication Wound care instructions were discussed Encourage incentive spirometer Medical recommendations Plan for discharge home tomorrow Time with Patient: Less than 30
[2020-08-27] MEDS: HYDROcodone/APAP 7.5-325MG 1 EACH TAB PO PRN ×3 (11:33→22:45)
--- NOTE | 2020-08-27 11:54 | P.CONS ---
History of Present Illness - Reason for Consult Consult date: 08/27/20 Medical management - History of Present Illness HISTORY OF PRESENT ILLNESS This is an 80-year-old female patient of Dr. Lemus with past medical history of tachycardia status post cardiac ablation, mild coronary artery disease of the LAD, hypertensive cardiovascular disease, hyperlipidemia. Patient has been brought in the hospital under the care of Dr. Aquino status post left total knee arthroplasty performed on 08/26. Patient states that last evening she had a lot of pain that kept her from sleeping. Orthopedics has been in this morning complaining to make adjustments to her pain medications. Patient denies having any lightheadedness or dizziness. No nausea or vomiting. No chest pain or shortness of breath. Her discharge plan is to go home with homecare. REVIEW OF SYSTEMS Constitutional: No fever, no chills, no night sweats. No weight change. No wea kness, fatigue or lethargy. No daytime sleepiness. EENT: No headache. No blurred vision or double vision, no loss of vision. No loss of Hearing, no ringing in the ears, no dizziness. No nasal drainage or congestion. No epistaxis. No sore throat. Lungs: No shortness of breath, cough, no sputum production. No wheezing. Cardiovascular: No chest pain, no lower extremity edema. No palpitations. No paroxysmal nocturnal dyspnea. No orthopnea. No lightheadedness or dizziness. No syncopal episodes. Abdominal: No abdominal pain. No nausea, vomiting. No diarrhea. No constipation. No bloody or tarry stools.. No loss of appetite. Genitourinary: No dysuria, increased frequency, urgency. No urinary retention. Musculoskeletal: No myalgias. No muscle weakness, no gait dysfunction, no neil quent falls. No back pain. No neck pain. Reports left knee pain. Integumentary: No wounds, no lesions. No rash or pruritus. No unusual bruising. No change in hair or nails. Neurologic: No aphasia. No facial droop. No change in mentation. No head injury. No headache. No paralysis. No paresthesia. Psychiatric: No depression. No anxiety. No mood swings. Endocrine: No abnormal blood sugars. No weight change. SOCIAL HISTORY Patient is a lifelong nonsmoker. No alcohol use, illicit drug use. Her daughter lives with her. She is utilizing a walker in the hospital. FAMILY HISTORY Mother at age 85 from a type of muscular dystrophy. Father at age 83 from heart failure. He did have history of smoking. Patient has 2 sisters with obesity, osteoarthritis and frequent falls. Patient does not have any brothers. Patient has 3 daughters and one is a survivor of breast cancer. Patient and one son who in an accident. PHYSICAL EXAMINATION Gen: This is an 80-year-old female. She is resting in a recliner and appears to be comfortable. No acute respiratory distress is noted. HEENT: Head is atraumatic, normocephalic. Pupils equal, round. Sclerae is anicteric. NECK: Supple. No JVD. No lymphadenopathy. No thyromegaly. LUNGS: Clear to auscultation. No wheezes or rhonchi. No intercostal retra ctions. HEART: Regular rate and rhythm. No murmur. ABDOMEN: Soft. Bowel sounds are present. No masses. No tenderness. EXTREMITIES: No pedal edema. No calf tenderness. Dressing in place to the left knee. NEUROLOGICAL: Patient is awake, alert and oriented x3. Cranial nerves 2 through 12 are grossly intact. ASSESSMENT AND PLAN 1. Osteoarthritis status post left knee total arthroplasty, postop day #1. Orthopedics is adjusting pain medications for better control, continue Q pump infusion, incentive spirometry to reduce incidence of atelectasis and hospital acquired pneumonia, PT and OT per orthopedics. 2. Mild coronary artery disease of the LAD, stable. 3. Hypertension hypertensive cardiovascular disease. Patient is not currently on traditional medications. Monitor blood pressure closely. 4. Hyperlipidemia. 5. History of tachycardia status post cardiac ablation. 6. History of diabetes. Check hemoglobin A1c. 7. GI prophylaxis. Protonix 40 mg oral daily. 8. DVT prophylaxis. Patient is on Lovenox 40 mg subcu daily. DISCHARGE PLAN Home with [facility]. Impression and plan of care have been directed as dictated by the signing physician. Negar Forbes nurse practitioner acting as scribe for signing physician. Past Medical History Past Medical History: Coronary Artery Disease (CAD), Hyperlipidemia, Hypertension, Osteoarthritis (OA) Additional Past Medical History / Comment(s): hx tachycardia History of Any Multi-Drug Resistant Organisms: None Reported Past Surgical History: Cardiac Ablation Additional Past Surgical History / Comment(s): rot cuff repair,d&c,johnna cataracts,mole removal, left knee surgery Past Anesthesia/Blood Transfusion Reactions: No Reported Reaction Additional Past Anesthesia/Blood Transfusion Reaction / Comm: no hx blood transfusion Past Psychological History: No Psychological Hx Reported Smoking Status: Never smoker Past Alcohol Use History: Occasional Past Drug Use History: None Reported - Past Family History Mother Family Medical History: Neurologic Disorder Father Family Medical History: Congestive Heart Failure (CHF) Sister(s) Family Medical History: Osteoarthritis (OA) Daughter(s) Family Medical History: Cancer Additional Family Medical History / Comment(s): schizophrenia Son(s) Family Medical History: No Reported History Medications and Allergies Home Medications Medication Instructions Recorded Confirmed Type Ascorbic Acid [Vitamin C] 2,000 mg PO DAILY 05/26/16 08/21/20 History Cholecalciferol [Vitamin D3 (25 125 mcg PO DAILY 05/26/16 08/21/20 History Mcg = 1000 Iu)] Iodine Synergy 1 cap PO Q7D 05/26/16 08/21/20 History Latanoprost Ophth [Xalatan 0.005%] 1 drops BOTH EYES HS 05/26/16 08/21/20 History [place]-3/Dha/Epa/Fish Oil [Fish Oil 2 cap PO DAILY 05/26/16 08/21/20 History 500 mg Softgel] Sodium Chloride 5% Ophth Soln 1 drops BOTH EYES BID 05/26/16 08/21/20 History [Julio 128] Vitamin B Complex 1 cap PO DAILY 05/26/16 08/21/20 History L-5 Mthf 2 cap PO Q7D 02/01/19 08/21/20 History Lipoic Acid [place] 1 tab PO BID-W/MEALS 02/01/19 08/21/20 History Phyto Multi Vitamin 1 tab PO DAILY 02/01/19 08/21/20 History Ubidecarenone [Co Q-10] 100 mg PO DAILY 02/01/19 08/21/20 History diphenhydrAMINE [Benadryl] 25 mg PO Q6H PRN 02/16/19 08/21/20 History Complete Mineral Supplement 1 tab PO DAILY 08/21/20 08/21/20 History Digestzymes Supplement 1 tab PO DAILY 08/21/20 08/21/20 History Endefen Supplement 1 tab PO DAILY 08/21/20 08/21/20 History Ultra Jenni Immune 1 tab PO BID 08/21/20 08/21/20 History Zinc 50 mg PO DAILY 08/21/20 08/21/20 History Allergies Allergy/AdvReac Type Severity Reaction Status Date / Time clarithromycin [From Biaxin] Allergy Unknown Rapid Verified 08/26/20 11:29 Heart Rate, depression, difficulty sleeping codeine Allergy Unknown Nausea, Verified 08/26/20 11:29 Dizziness egg Allergy Unknown Phlegm Verified 08/26/20 11:29 levofloxacin [From Levaquin] Allergy Unknown Depression, Verified 08/26/20 11:29 Crying, Difficulty Sleeping milk Allergy Unknown Phlegm Verified 08/26/20 11:29 pantoprazole [From Protonix] Allergy Unknown Elevated Verified 08/26/20 11:29 Blood Sugar sulfamethoxazole Allergy Unknown Abdominal Verified 08/26/20 11:29 [From Bactrim] Pain, NAUSEA tramadol Allergy Unknown Dizziness Verified 08/26/20 11:29 trimethoprim [From Bactrim] Allergy Unknown Abdominal Verified 08/26/20 11:29 Pain, NAUSEA wheat Allergy Unknown Phlegm Verified 08/26/20 11:29 azithromycin Allergy Rapid Verified 08/26/20 11:29 [From Zithromax Z-Josesito] Heart Rate lactose Allergy Phlegm Verified 08/26/20 11:29 metoprolol Allergy Phlegm Verified 08/26/20 11:29 tree nut [Nut] Allergy Anaphylaxis Verified 08/26/20 11:29 atorvastatin [From Lipitor] AdvReac aching all Verified 08/26/20 11:29 over oral steroids Allergy Severe Abdominal Uncoded 08/26/20 11:29 Pain Physical Exam Vitals: Vital Signs Temp Pulse Resp BP BP Pulse Ox 08/27/20 07:46 97.9 F 68 18 129/70 96 08/27/20 02:21 97.6 F 93 18 131/66 92 L 08/26/20 19:45 14 08/26/20 18:48 97.5 F L 60 14 138/64 98 08/26/20 18:20 97.6 F 68 18 173/71 99 08/26/20 17:55 67 14 144/62 99 08/26/20 17:40 62 16 158/66 92 L 08/26/20 17:17 63 16 141/65 95 08/26/20 16:50 65 16 164/72 96 08/26/20 16:30 59 L 16 145/69 97 08/26/20 16:15 60 16 133/63 97 08/26/20 15:58 56 L 16 139/67 97 08/26/20 15:43 59 L 16 151/70 97 08/26/20 15:28 60 16 155/74 97 08/26/20 15:13 58 L 16 171/82 94 L 08/26/20 14:58 58 L 16 161/82 96 08/26/20 14:43 59 L 16 138/77 96 08/26/20 12:42 66 16 152/70 96 08/26/20 11:36 97.2 F L 78 16 134/71 97 Intake and Output 08/26/20 08/27/20 08/27/20 22:59 06:59 14:59 Intake Total 350 Balance 350 Intake: IV 350 Other: # Voids 3 Weight 84.822 kg Results CBC & Chem 7: 08/27/20 05:07
[2020-08-27] MEDS: LACTATED RINGERS 1,000 ML IV SCH ×2 (16:29→22:44)
[2020-08-27] MEDS: SENNOSIDES-DOCUSATE SODIUM 1 EACH TAB PO SCH (19:58)
[2020-08-27] MEDS: SODIUM CHLORIDE 5% OPHTH DROPS 15 ML BTL BOTH EYES SCH (19:58)
[2020-08-27 20:04] LABS: Hemoglobin A1C 5.7 % (4.0-6.0)
[2020-08-27] MEDS ORDERED: LATANOPROST 0.005% OPHTH DROPS 2.5 ML BTL BOTH EYES SCH (21:00)
[2020-08-28] MEDS: HYDROcodone/APAP 7.5-325MG 1 EACH TAB PO PRN ×2 (04:49→10:12)
[2020-08-28] MEDS: ENOXAPARIN 40 MG/0.4 ML SYRINGE SQ SCH (04:50)
[2020-08-28] MEDS: SODIUM CHLORIDE 5% OPHTH DROPS 15 ML BTL BOTH EYES SCH (07:18)
[2020-08-28 08:14] VITALS: BP 133/64; PULSE 71; RESP 16; TEMP 98.3
--- NOTE | 2020-08-28 10:19 | P.PN ---
Subjective Progress Note Date: 08/28/20 Principal diagnosis: Status post left total knee arthroplasty patient was examined today at bedside, she is resting in her hospital chair. Patient does note better pain control with adjustment of her medication. She is eager to go home. She denies any headaches, lightheadedness, chest pain or shortness of breath.erapy. Objective - Vital Signs Vital signs: Vital Signs Temp 98.3 F 08/28/20 08:00 Pulse 71 08/28/20 08:00 Resp 16 08/28/20 08:00 BP 133/64 08/28/20 08:00 Pulse Ox 92 L 08/28/20 08:00 Intake & Output 08/27/20 08/28/20 08/28/20 18:59 06:59 18:59 Other: Voiding Method Toilet Toilet # Voids 4 2 # Bowel Movements 1 - Exam Left lower extremity: Incision is clean, dry, and intact. The exofin fusion tape is in good condition. There is minimal soft tissue swelling and ecchymosis surrounding the medial and lateral aspects of the incision. Calf is soft, no tenderness with palpation. Plantar flexion, dorsiflexion, EHL, FHL are intact. Sensory exam to light touch throughout the extremity is intact, dorsal pedis pulses 2+. - Labs CBC & Chem 7: 08/27/20 05:07 Labs: Abnormal Lab Results - Last 24 Hours (Table) 08/27/20 Range/Units 05:07 WBC 10.16 H (4.50-10.00) X 10*3/uL RBC 3.80 L (4.10-5.20) X 10*6/uL Hgb 11.5 L (12.0-15.0) g/dL Hct 34.9 L (37.2-46.3) % Neutrophils # 8.48 H (1.80-7.70) X 10*3/uL Lymphocytes # 0.56 L (0.90-5.00) X 10*3/uL Assessment and Plan Assessment: Postoperative day #2 status post left total knee arthroplasty Plan: Pain control, plan for discharge on [place] 7.5 mg/325 mg Icing and elevating techniques were discussed GI and DVT prophylaxis, aspirin 81 mg twice a day Wound care instructions were discussed Encourage incentive spirometer Medical recommendations Plan for discharge home today Time with Patient: Less than 30
[2020-08-28 10:23] LABS: HCT 30.1 % (37.2-46.3); MCHC 33.2 g/dL (32.0-37.0); MCV 90.4 fL (80.0-97.0); Mean Platelet Volume 11.1 fL (9.5-12.2); Platelet Count 222 X 10*3/uL (140-440); RBC 3.33 X 10*6/uL (4.10-5.20); RDW 13.2 % (11.5-14.5); WBC 11.82 X 10*3/uL (4.50-10.00)
--- NOTE | 2020-08-28 10:30 | P.DS ---
Providers Date of admission: 08/27/20 12:48 Expected date of discharge: 08/28/20 Attending physician: Jerzy Aquino Consults: 08/26/20 14:26 Consult Physician Routine Consulting Provider: Reid Lemus Reason/Comments: Medical management Do you want consulting provider notified?: Yes Primary care physician: Reid Lemus [facility] Course: Date of admission: 08/26/2020 Date of discharge: 08/28/2020 Admission diagnosis: Status post left total knee arthroplasty Discharge diagnosis: Same Attending physician: Dr. Aquino Surgical procedures: Left total knee arthroplasty Brief history: Patient is a 80-year-old female with a history of progressive primary left knee osteoarthritis. At this point patient has failed conservative treatment measures and has opted to proceed with a elective left total knee arthroplasty. Hospital course: Details of patient's surgery can be found in operative report. Patient tolerated the procedure well and was subsequently transported to orthopedic floor. Patient's orthopeidc and medical care was provided daily. Patient had daily laboratory tests performed for evaluation of overall blood counts. Patient had daily physical therapy to include strengthening range of motion as well as education with walker ambulation. Patient was treated with Lovenox for their postoperative DVT prophylaxis during their inpatient stay. Patient was noted to have a relatively uneventful postoperative course. Patient reported satisfactory pain control with oral pain medications by postoperative day 0. Patient showed satisfactory progress with physical therapy. Patient moved steadily through the program and had no difficulty meeting the goals by postoperative day 2. Given patient's otherwise satisfactory course and having met physical therapy goals, plan is to discharge patient home on postoperative day 2. Discharge condition/disposition: Patient will be discharged home in stable condition. Discharge medications: Instructions are given on resumption of patient's normal daily medications per primary care recommendation, in addition patient will be prescribed [place] 7.5 mg/325 mg, aspirin 81 mg. Discharge instructions: 1. Wound care and infection precautions, keep incision dry and covered while showering, no lotions, creams, moisturizers. No soaking, tubs, pools, hottubs. Do not scrub over the incision. 2. Weight-bear as tolerated with walker / cane until follow-up. 3. Ice and elevate when necessary. Do not exceed 20 minutes per hour with ice pack. 4. Utilize compression sleeve until seen at first follow up appointment. 5. Visiting nursing care. 6. Home physical therapy including home CPM. 7. Pain meds and anticoagulants per prescription. 8. Pain medication has potential to cause constipation. Increase oral fluid and fiber intake. Contact primary care provider if you have not had a bowel movement within 48 hours after discharge 9. No anti-inflammatory medication until discussed at first post operative visit, this including Motrin, Aleve, Mobic, Diclofenac, Aspirin. 10. Follow up in office at 2 weeks postop with Yuriy Guzmán PA-C/[facility]rero 11. Follow up with your primary care doctor 7-10 days after discharge. 12. Contact [facility] with any questions, . Procedures: Left total knee arthroplasty Patient Condition at Discharge: Good Plan - Discharge Summary Discharge Rx Participant: No New Discharge Prescriptions: New Aspirin [Adult Low Dose Aspirin EC] 81 mg PO BID #60 tablet. HYDROcodone/APAP 7.5-325MG [[place] 7.5] 1 - 2 each PO Q6HR PRN #42 tab PRN Reason: Pain No Action Latanoprost Ophth [Xalatan 0.005%] 1 drops BOTH EYES HS Sodium Chloride 5% Ophth Soln [Julio 128] 1 drops BOTH EYES BID Cholecalciferol [Vitamin D3 (25 Mcg = 1000 Iu)] 125 mcg PO DAILY Vitamin B Complex 1 cap PO DAILY [place]-3/Dha/Epa/Fish Oil [Fish Oil 500 mg Softgel] 2 cap PO DAILY Ascorbic Acid [Vitamin C] 2,000 mg PO DAILY Iodine Synergy 1 cap PO Q7D Ubidecarenone [Co Q-10] 100 mg PO DAILY Lipoic Acid [place] 1 tab PO BID-W/MEALS Phyto Multi Vitamin 1 tab PO DAILY L-5 Mthf 2 cap PO Q7D diphenhydrAMINE [Benadryl] 25 mg PO Q6H PRN PRN Reason: allergies Zinc 50 mg PO DAILY Ultra Jenni Immune 1 tab PO BID Endefen Supplement 1 tab PO DAILY Digestzymes Supplement 1 tab PO DAILY Complete Mineral Supplement 1 tab PO DAILY Discharge Medication List Ascorbic Acid [Vitamin C] 2,000 mg PO DAILY 05/26/16 [History] Cholecalciferol [Vitamin D3 (25 Mcg = 1000 Iu)] 125 mcg PO DAILY 05/26/16 [History] Iodine Synergy 1 cap PO Q7D 05/26/16 [History] Latanoprost Ophth [Xalatan 0.005%] 1 drops BOTH EYES HS 05/26/16 [History] [place]-3/Dha/Epa/Fish Oil [Fish Oil 500 mg Softgel] 2 cap PO DAILY 05/26/16 [History] Sodium Chloride 5% Ophth Soln [Julio 128] 1 drops BOTH EYES BID 05/26/16 [History] Vitamin B Complex 1 cap PO DAILY 05/26/16 [History] L-5 Mthf 2 cap PO Q7D 02/01/19 [History] Lipoic Acid [place] 1 tab PO BID-W/MEALS 02/01/19 [History] Phyto Multi Vitamin 1 tab PO DAILY 02/01/19 [History] Ubidecarenone [Co Q-10] 100 mg PO DAILY 02/01/19 [History] diphenhydrAMINE [Benadryl] 25 mg PO Q6H PRN 02/16/19 [History] Complete Mineral Supplement 1 tab PO DAILY 08/21/20 [History] Digestzymes Supplement 1 tab PO DAILY 08/21/20 [History] Endefen Supplement 1 tab PO DAILY 08/21/20 [History] Ultra Jenni Immune 1 tab PO BID 08/21/20 [History] Zinc 50 mg PO DAILY 08/21/20 [History] Aspirin [Adult Low Dose Aspirin EC] 81 mg PO BID #60 tablet. 08/28/20 [Rx] HYDROcodone/APAP 7.5-325MG [[place] 7.5] 1 - 2 each PO Q6HR PRN #42 tab 08/28/20 [Rx] Follow up Appointment(s)/Referral(s): [facility], [NON-STAFF] - ([facility] will call you to set up a time for your first visit. A nurse will visit you once a week. Physical Therapy will work with you 3 days each week for an hour at a time. ) [facility],Equipment [NON-STAFF] - (Please call [facility] once home to arrange delivery of the Continuous Passive Motion (CPM) machine. You will use this for 21 days then [facility] will pick it up. ) Reid Lemus MD [Primary Care Provider] - 1 Week Aaron Guzmán PAC [PHYSICIAN QUALITY NURSE] - 2 Weeks Activity/Diet/Wound Care/Special Instructions: Orthopedic Discharge Instructions: 1. Wound care and infection precautions, keep incision dry and covered while showering, no lotions, creams, moisturizers. No soaking, pools, hot tubs. Do not scrub over incision. 2. Weight-bear as tolerated with walker / cane until follow-up. 3. Ice and elevate when necessary. Do not exceed 20 minutes per hour with ice pack. 4. Utilize compression sleeve until seen at first follow up appointment. 5. Pain meds and anticoagulants per prescription. 6. Pain medication has potential to cause constipation. Increase oral fluid and fiber intake. Contact primary care provider if you have not had a bowel movement within 48 hours after discharge. 7. No anti-inflammatory medication until discussed at first post operative visit, this including Motrin, Aleve, Mobic, Diclofenac. 8. Follow up in office at 2 weeks postop with Yuriy Guzmán PA-C/River Mckee PA-C 9. Follow up with your primary care doctor 7-10 days after discharge. 10. Contact [facility] with any questions, . Discharge Disposition: HOME WITH HOME HEALTH SERVICES
[2020-08-28 12:05] LABS: African American GFR (CKD) 105.2 (60.0-200.0); Albumin 3.5 g/dL (3.80-4.90); Albumin/Globulin Ratio 1.84 (1.60-3.17); Anion Gap 8.6 mmol/L (4.00-12.00); Calcium 8.2 mg/dL (8.7-10.3); Carbon Dioxide 23.4 mmol/L (21.6-31.8); Globulin 1.9 g/dL (1.6-3.3); Non-African American GFR(CKD) 90.8 (60.0-200.0); Potassium 4.2 mmol/L (3.5-5.5); Total Bilirubin 0.7 mg/dL (0.2-1.2); Total Protein 5.4 g/dL (6.2-8.2)
--- NOTE | 2020-08-28 13:02 | P.PN ---
Subjective Progress Note Date: 08/28/20 HISTORY OF PRESENT ILLNESS This is an 80-year-old female patient of Dr. Lemus with past medical history of tachycardia status post cardiac ablation, mild coronary artery disease of the LAD, hypertensive cardiovascular disease, hyperlipidemia. Patient has been brought in the hospital under the care of Dr. Aquino status post left total knee arthroplasty performed on 08/26. Patient states that last evening she had a lot of pain that kept her from sleeping. Orthopedics has been in this morning complaining to make adjustments to her pain medications. Patient denies having any lightheadedness or dizziness. No nausea or vomiting. No chest pain or shortness of breath. Her discharge plan is to go home with homecare. 08/28: Patient is postop day #2. She states that her pain is improved after medication changes were made yesterday. She has been seen by orthopedics and is scheduled for discharge home today. She has been afebrile, heart rate 71, blood pressure 133/64, pulse ox 92% on room air. Repeat blood work reveals WBC 11.8, hemoglobin 10, platelet count 222. Sodium 130, potassium 4.2, chloride 98, CO2 23, BUN 11 and creatinine 0.5. Blood sugar 120. Medication reconciliation is been reviewed. Patient is on baby aspirin twice daily for DVT prophylaxis. REVIEW OF SYSTEMS Constitutional: No fever, no chills, no night sweats. No weight change. No weakness, fatigue or lethargy. No daytime sleepiness. EENT: No headache. No blurred vision or double vision, no loss of vision. No loss of Hearing, no ringing in the ears, no dizziness. No nasal drainage or congestion. No epistaxis. No sore throat. Lungs: No shortness of breath, cough, no sputum production. No wheezing. Cardiovascular: No chest pain, no lower extremity edema. No palpitations. No paroxysmal nocturnal dyspnea. No orthopnea. No lightheadedness or dizziness. No syncopal episodes. Abdominal: No abdominal pain. No nausea, vomiting. No diarrhea. No constipation. No bloody or tarry stools.. No loss of appetite. Genitourinary: No dysuria, increased frequency, urgency. No urinary retention. Musculoskeletal: No myalgias. No muscle weakness, no gait dysfunction, no frequent falls. No back pain. No neck pain. Reports left knee pain, controlle d. Integumentary: No wounds, no lesions. No rash or pruritus. No unusual bruising. No change in hair or nails. Neurologic: No aphasia. No facial droop. No change in mentation. No head injury. No headache. No paralysis. No paresthesia. Psychiatric: No depression. No anxiety. No mood swings. Endocrine: No abnormal blood sugars. No weight change. PHYSICAL EXAMINATION Gen: This is an 80-year-old female. She is resting in a recliner and appears to be comfortable. No acute respiratory distress is noted. HEENT: Head is atraumatic, normocephalic. Pupils equal, round. Sclerae is anicteric. NECK: Supple. No JVD. No lymphadenopathy. No thyromegaly. LUNGS: Clear to auscultation. No wheezes or rhonchi. No intercostal retractions. HEART: Regular rate and rhythm. No murmur. ABDOMEN: Soft. Bowel sounds are present. No masses. No tenderness. EXTREMITIES: No pedal edema. No calf tenderness. Dressing in place to the left knee. NEUROLOGICAL: Patient is awake, alert and oriented x3. Cranial nerves 2 through 12 are grossly intact. ASSESSMENT AND PLAN 1. Osteoarthritis status post left knee total arthroplasty, postop day #2. Continue current pain management, continue Q pump infusion, incentive spirometry to reduce incidence of atelectasis and hospital acquired pneumonia, PT and OT per orthopedics. 2. Mild coronary artery disease of the LAD, stable. 3. Hypertension hypertensive cardiovascular disease. Patient is not currently on traditional medications. Monitor blood pressure closely. 4. Hyperlipidemia. 5. History of tachycardia status post cardiac ablation. 6. History of diabetes. Check hemoglobin A1c. 7. GI prophylaxis. Protonix 40 mg oral daily. 8. DVT prophylaxis. Plan for baby aspirin twice daily for DVT prophylaxis. DISCHARGE PLAN Home with [facility]. Impression and plan of care have been directed as dictated by the signing physician. Negar Forbes nurse practitioner acting as scribe for signing physician. Objective - Vital Signs Vital signs: Vital Signs Temp 98.3 F 08/28/20 08:00 Pulse 71 08/28/20 08:00 Resp 16 08/28/20 08:00 BP 133/64 08/28/20 08:00 Pulse Ox 92 L 08/28/20 08:00 Intake & Output 08/27/20 08/28/20 08/28/20 18:59 06:59 18:59 Other: Voiding Method Toilet # Voids 4 2 # Bowel Movements 1 - Labs CBC & Chem 7: 08/28/20 05:46 08/28/20 05:46 Labs: Abnormal Lab Results - Last 24 Hours (Table) 08/27/20 Range/Units 05:07 WBC 10.16 H (4.50-10.00) X 10*3/uL RBC 3.80 L (4.10-5.20) X 10*6/uL Hgb 11.5 L (12.0-15.0) g/dL Hct 34.9 L (37.2-46.3) % Neutrophils # 8.48 H (1.80-7.70) X 10*3/uL Lymphocytes # 0.56 L (0.90-5.00) X 10*3/uL
== END 2020-08-28 11:59 | disposition home health service (06) ==
LOC: OR 10:56 → 4SSUR 17:44 → OR 08-27 12:48 → 4SSUR 08-27 12:48
PROVIDERS: ADMIT Orthopaedic Surgery; ATTEND Orthopaedic Surgery
DX: M17.12 Unilateral primary osteoarthritis, left knee (principal); I11.9 Hypertensive heart disease without heart failure; E78.5 Hyperlipidemia, unspecified; E11.9 Type 2 diabetes mellitus without complications; I25.10 Atherosclerotic heart disease of native coronary artery without angina pectoris; R00.0 Tachycardia, unspecified; Z20.822 Contact with and (suspected) exposure to COVID-19; Z79.899 Other long term (current) drug therapy; Z88.1 Allergy status to other antibiotic agents; Z88.5 Allergy status to narcotic agent; Z88.8 Allergy status to other drugs, medicaments and biological substances; Z91.012 Allergy to eggs; Z98.42 Cataract extraction status, left eye; Z98.41 Cataract extraction status, right eye; Z98.890 Other specified postprocedural states; Z82.69 Family history of other diseases of the musculoskeletal system and connective tissue; Z82.49 Family history of ischemic heart disease and other diseases of the circulatory system; Z81.2 Family history of tobacco abuse and dependence; Z82.61 Family history of arthritis; Z80.3 Family history of malignant neoplasm of breast; Z83.49 Family history of other endocrine, nutritional and metabolic diseases; Z91.011 Allergy to milk products; Z91.018 Allergy to other foods; Z81.8 Family history of other mental and behavioral disorders; Z82.0 Family history of epilepsy and other diseases of the nervous system
CPT/HCPCS: 97116; 97161; 64999; 64448; 76942; 80053; 85025; 85027; 88300; 83036; 87635; 73560; 27447; G0378 ×2; C1776; C1713; J2250; J0690 ×3; J2405; J1650 ×2; J3010; J2795 ×2; J2704; J1170

== ENCOUNTER 2020-09-30 18:38 | Emergency (ER) | payer MEDICARE ==
--- NOTE | 2020-09-30 19:24 | XR ---
EXAMINATION TYPE: XR Hip Complete LT DATE OF EXAM: 09/30/2020 COMPARISON: 01/17/2019 HISTORY: Pain. Fall. TECHNIQUE: 2 views FINDINGS: There is left hip prosthesis. Components appear in anatomic position. I see no fracture nor dislocation. IMPRESSION: No fracture seen.
--- NOTE | 2020-09-30 19:25 | XR ---
EXAMINATION TYPE: XR knee complete LT DATE OF EXAM: 09/30/2020 COMPARISON: 08/26/2020 HISTORY: Pain. Fall. TECHNIQUE: 3 views FINDINGS: There is left knee prosthesis. Components appear in anatomic position. IMPRESSION: No fracture. No complicating process.
--- NOTE | 2020-09-30 19:54 | ED ---
Fall HPI - General Chief Complaint: Fall Stated Complaint: fall Time Seen by Provider: 09/30/20 19:35 Source: patient, RN notes reviewed Mode of arrival: ambulatory - History of Present Illness Initial Comments: Patient is an 80-year-old female that presents to the emergency department status post fall her yard while gardening she notes she was try to rule out wasn't sure lost balance and fell backwards. She notes that she recently had knee replaced done within the last month. She notes she got herself to standing without putting weight on her knee. She notes that she's having left knee and hip pain. She denied any weakness numbness tingling down the left lower extremity. She denied any chest pain shortness of breath headache nausea vomiting diarrhea constipation fever fatigue chills. - Related Data Home Medications Medication Instructions Recorded Confirmed Ascorbic Acid [Vitamin C] 2,000 mg PO DAILY 05/26/16 08/21/20 Cholecalciferol [Vitamin D3 (25 125 mcg PO DAILY 05/26/16 08/21/20 Mcg = 1000 Iu)] Iodine Synergy 1 cap PO Q7D 05/26/16 08/21/20 Latanoprost Ophth [Xalatan 0.005%] 1 drops BOTH EYES HS 05/26/16 08/21/20 [place]-3/Dha/Epa/Fish Oil [Fish Oil 2 cap PO DAILY 05/26/16 08/21/20 500 mg Softgel] Sodium Chloride 5% Ophth Soln 1 drops BOTH EYES BID 05/26/16 08/21/20 [Julio 128] Vitamin B Complex 1 cap PO DAILY 05/26/16 08/21/20 L-5 Mthf 2 cap PO Q7D 02/01/19 08/21/20 Lipoic Acid [place] 1 tab PO BID-W/MEALS 02/01/19 08/21/20 Phyto Multi Vitamin 1 tab PO DAILY 02/01/19 08/21/20 Ubidecarenone [Co Q-10] 100 mg PO DAILY 02/01/19 08/21/20 diphenhydrAMINE [Benadryl] 25 mg PO Q6H PRN 02/16/19 08/21/20 Complete Mineral Supplement 1 tab PO DAILY 08/21/20 08/21/20 Digestzymes Supplement 1 tab PO DAILY 08/21/20 08/21/20 Endefen Supplement 1 tab PO DAILY 08/21/20 08/21/20 Ultra Jenni Immune 1 tab PO BID 08/21/20 08/21/20 Zinc 50 mg PO DAILY 08/21/20 08/21/20 Previous Rx's Medication Instructions Recorded Aspirin [Adult Low Dose Aspirin EC] 81 mg PO BID #60 tablet. 08/28/20 HYDROcodone/APAP 7.5-325MG [[place] 1 - 2 each PO Q6HR PRN #42 tab 08/28/20 7.5] Allergies Allergy/AdvReac Type Severity Reaction Status Date / Time clarithromycin [From Biaxin] Allergy Unknown Rapid Verified 09/30/20 18:47 Heart Rate, depression, difficulty sleeping codeine Allergy Unknown Nausea, Verified 09/30/20 18:47 Dizziness egg Allergy Unknown Phlegm Verified 09/30/20 18:47 levofloxacin [From Levaquin] Allergy Unknown Depression, Verified 09/30/20 18:47 Crying, Difficulty Sleeping milk Allergy Unknown Phlegm Verified 09/30/20 18:47 pantoprazole [From Protonix] Allergy Unknown Elevated Verified 09/30/20 18:47 Blood Sugar sulfamethoxazole Allergy Unknown Abdominal Verified 09/30/20 18:47 [From Bactrim] Pain, NAUSEA tramadol Allergy Unknown Dizziness Verified 09/30/20 18:47 trimethoprim [From Bactrim] Allergy Unknown Abdominal Verified 09/30/20 18:47 Pain, NAUSEA wheat Allergy Unknown Phlegm Verified 09/30/20 18:47 azithromycin Allergy Rapid Verified 09/30/20 18:47 [From Zithromax Z-Josesito] Heart Rate lactose Allergy Phlegm Verified 09/30/20 18:47 metoprolol Allergy Phlegm Verified 09/30/20 18:47 tree nut [Nut] Allergy Anaphylaxis Verified 09/30/20 18:47 atorvastatin [From Lipitor] AdvReac aching all Verified 09/30/20 18:47 over oral steroids Allergy Severe Abdominal Uncoded 08/26/20 11:29 Pain Review of Systems ROS Statement: Those systems with pertinent positive or pertinent negative responses have been documented in the HPI. ROS Other: All systems not noted in ROS Statement are negative. Past Medical History Past Medical History: Coronary Artery Disease (CAD), Hyperlipidemia, Hypertension, Osteoarthritis (OA) Additional Past Medical History / Comment(s): hx tachycardia History of Any Multi-Drug Resistant Organisms: None Reported Past Surgical History: Ablation Additional Past Surgical History / Comment(s): left knee and hip replacement Past Anesthesia/Blood Transfusion Reactions: No Reported Reaction Additional Past Anesthesia/Blood Transfusion Reaction / Comment(s): no hx blood transfusion Past Psychological History: No Psychological Hx Reported Smoking Status: Never smoker Past Alcohol Use History: Occasional Past Drug Use History: None Reported - Past Family History Mother Family Medical History: Neurologic Disorder Father Family Medical History: Congestive Heart Failure (CHF) Sister(s) Family Medical History: Osteoarthritis (OA) Daughter(s) Family Medical History: Cancer Additional Family Medical History / Comment(s): schizophrenia Son(s) Family Medical History: No Reported History General Exam Limitations: no limitations General appearance: alert, in no apparent distress Head exam: Present: atraumatic, normocephalic, normal inspection Eye exam: Present: normal appearance, PERRL, EOMI. Absent: scleral icterus, conjunctival injection, periorbital swelling Neck exam: Present: normal inspection Respiratory exam: Present: normal lung sounds bilaterally. Absent: respiratory distress, wheezes, rales, rhonchi, stridor Cardiovascular Exam: Present: regular rate, normal rhythm, normal heart sounds. Absent: systolic murmur, diastolic murmur, rubs, gallop, clicks Left Hip exam: Present: normal inspection, full ROM. Absent: tenderness, swelling Knee exam: Present: normal inspection (Surgical incision healing well.), full ROM. Absent: tenderness Neurological exam: Present: alert, oriented X3 Psychiatric exam: Present: normal affect, normal mood Skin exam: Present: warm, dry, intact, normal color. Absent: rash Course Vital Signs 09/30/20 18:42 Temperature 98.1 F Pulse Rate 76 Respiratory 18 Rate Blood Pressure 177/96 O2 Sat by Pulse 97 Oximetry Medical Decision Making - Medical Decision Making 80-year-old female status post fall in the yard complaining of left knee left hip pain. Left knee left hip x-ray ordered. Imaging shows no acute fractures or dislocations. Case discussed with Dr. Lord, patient can discharge home with follow-up to primary care and conservative management. - Radiology Data Radiology results: report reviewed, image reviewed Left knee x-ray: No fracture. No complicating in process. Left hip x-ray: No fracture seen. Disposition Clinical Impression: Fall Disposition: HOME SELF-CARE Condition: Stable Instructions (If sedation given, give patient instructions): Fall Prevention for Older Adults (ED) Additional Instructions: Please return to the Emergency Department if symptoms worsen or any other concerns. Follow-up with primary care as needed within the next several days. Take Motrin in between extra strength Tylenol for pain control. Is patient prescribed a controlled substance at d/c from ED?: No Referrals: Reid Lemus MD [Primary Care Provider] - 1-2 days Time of Disposition: 19:54
[2020-09-30 20:12] VITALS: BP 171/75; PULSE 78; RESP 17; TEMP 98.2
== END 2020-09-30 20:24 | disposition home or self-care (01) ==
LOC: EC 18:38
DX: M25.552 Pain in left hip (principal); M25.562 Pain in left knee; I10 Essential (primary) hypertension; Z88.1 Allergy status to other antibiotic agents; Z88.2 Allergy status to sulfonamides; Z88.5 Allergy status to narcotic agent; Z88.8 Allergy status to other drugs, medicaments and biological substances; Z91.012 Allergy to eggs; Z91.011 Allergy to milk products; Z91.018 Allergy to other foods; W19.XXXA Unspecified fall, initial encounter
CPT/HCPCS: 73502; 99284

== ENCOUNTER 2020-10-06 01:40 | Emergency (ER) | payer MEDICARE ==
[2020-10-06 01:47] VITALS: TEMP 97.7
[2020-10-06 02:39] LABS: Appearance,Urine Turbid (Clear); Bacteria,Urine Moderate /hpf; Bilirubin,Urine Negative (Negative); Blood,Urine Small (Negative); Color,Urine Yellow; Glucose,Urine (UA) Negative (Negative); Ketones,Urine Negative (Negative); Leukocyte Esterase,Urine Large (Negative); Nitrite,Urine Negative (Negative); Protein,Urine Trace (Negative); RBC,Urine 43 /hpf (0-5); Specific Gravity,Urine 1.015 (1.001-1.035); Urobilinogen,Urine <2.0 mg/dL (<2.0); WBC,Urine >182 /hpf (0-5)
--- NOTE | 2020-10-06 02:46 | ED ---
Female Urogenital HPI - General Chief complaint: Urogenital Stated complaint: Urogenital Time Seen by Provider: 10/06/20 01:51 Source: patient Mode of arrival: ambulatory - History of Present Illness Initial comments: 80-year-old female presents to emergency department with a chief complaint of painful urination. Patient reports this started several hours prior to arrival. She denies any associated changes in frequency or urgency. States she had a UTI about a year ago but she did not have any symptoms. She denies any vaginal symptoms at this time. Denies hematuria, hematochezia or melena. Denies any abdominal pain or back pain. Denies any fevers or chills. - Related Data Home Medications Medication Instructions Recorded Confirmed Ascorbic Acid [Vitamin C] 2,000 mg PO DAILY 05/26/16 08/21/20 Cholecalciferol [Vitamin D3 (25 125 mcg PO DAILY 05/26/16 08/21/20 Mcg = 1000 Iu)] Iodine Synergy 1 cap PO Q7D 05/26/16 08/21/20 Latanoprost Ophth [Xalatan 0.005%] 1 drops BOTH EYES HS 05/26/16 08/21/20 [place]-3/Dha/Epa/Fish Oil [Fish Oil 2 cap PO DAILY 05/26/16 08/21/20 500 mg Softgel] Sodium Chloride 5% Ophth Soln 1 drops BOTH EYES BID 05/26/16 08/21/20 [Julio 128] Vitamin B Complex 1 cap PO DAILY 05/26/16 08/21/20 L-5 Mthf 2 cap PO Q7D 02/01/19 08/21/20 Lipoic Acid [place] 1 tab PO BID-W/MEALS 02/01/19 08/21/20 Phyto Multi Vitamin 1 tab PO DAILY 02/01/19 08/21/20 Ubidecarenone [Co Q-10] 100 mg PO DAILY 02/01/19 08/21/20 diphenhydrAMINE [Benadryl] 25 mg PO Q6H PRN 02/16/19 08/21/20 Complete Mineral Supplement 1 tab PO DAILY 08/21/20 08/21/20 Digestzymes Supplement 1 tab PO DAILY 08/21/20 08/21/20 Endefen Supplement 1 tab PO DAILY 08/21/20 08/21/20 Ultra Jenni Immune 1 tab PO BID 08/21/20 08/21/20 Zinc 50 mg PO DAILY 08/21/20 08/21/20 Previous Rx's Medication Instructions Recorded Aspirin [Adult Low Dose Aspirin EC] 81 mg PO BID #60 tablet. 08/28/20 HYDROcodone/APAP 7.5-325MG [[place] 1 - 2 each PO Q6HR PRN #42 tab 08/28/20 7.5] Nitrofurantoin Monohyd/M-Cryst 100 mg PO Q12HR #14 cap 10/06/20 [Macrobid] Allergies Allergy/AdvReac Type Severity Reaction Status Date / Time clarithromycin [From Biaxin] Allergy Unknown Rapid Verified 10/06/20 01:47 Heart Rate, depression, difficulty sleeping codeine Allergy Unknown Nausea, Verified 10/06/20 01:47 Dizziness egg Allergy Unknown Phlegm Verified 10/06/20 01:47 levofloxacin [From Levaquin] Allergy Unknown Depression, Verified 10/06/20 01:47 Crying, Difficulty Sleeping milk Allergy Unknown Phlegm Verified 10/06/20 01:47 pantoprazole [From Protonix] Allergy Unknown Elevated Verified 10/06/20 01:47 Blood Sugar sulfamethoxazole Allergy Unknown Abdominal Verified 10/06/20 01:47 [From Bactrim] Pain, NAUSEA tramadol Allergy Unknown Dizziness Verified 10/06/20 01:47 trimethoprim [From Bactrim] Allergy Unknown Abdominal Verified 10/06/20 01:47 Pain, NAUSEA wheat Allergy Unknown Phlegm Verified 10/06/20 01:47 azithromycin Allergy Rapid Verified 10/06/20 01:47 [From Zithromax Z-Josesito] Heart Rate lactose Allergy Phlegm Verified 10/06/20 01:47 metoprolol Allergy Phlegm Verified 10/06/20 01:47 tree nut [Nut] Allergy Anaphylaxis Verified 10/06/20 01:47 atorvastatin [From Lipitor] AdvReac aching all Verified 10/06/20 01:47 over oral steroids Allergy Severe Abdominal Uncoded 10/06/20 01:47 Pain Review of Systems ROS Statement: Those systems with pertinent positive or pertinent negative responses have been documented in the HPI. ROS Other: All systems not noted in ROS Statement are negative. Past Medical History Past Medical History: Coronary Artery Disease (CAD), Hyperlipidemia, Hypertension, Osteoarthritis (OA) Additional Past Medical History / Comment(s): hx tachycardia History of Any Multi-Drug Resistant Organisms: None Reported Past Surgical History: Ablation Additional Past Surgical History / Comment(s): left knee and hip replacement Past Anesthesia/Blood Transfusion Reactions: No Reported Reaction Additional Past Anesthesia/Blood Transfusion Reaction / Comment(s): no hx blood transfusion Past Psychological History: No Psychological Hx Reported Smoking Status: Never smoker Past Alcohol Use History: Occasional Past Drug Use History: None Reported - Past Family History Mother Family Medical History: Neurologic Disorder Father Family Medical History: Congestive Heart Failure (CHF) Sister(s) Family Medical History: Osteoarthritis (OA) Daughter(s) Family Medical History: Cancer Additional Family Medical History / Comment(s): schizophrenia Son(s) Family Medical History: No Reported History General Exam Limitations: no limitations General appearance: alert, in no apparent distress Head exam: Present: atraumatic, normocephalic, normal inspection Eye exam: Present: normal appearance, PERRL, EOMI Pupils: Present: normal accommodation ENT exam: Present: normal exam, normal oropharynx, mucous membranes moist Neck exam: Present: normal inspection, full ROM. Absent: tenderness Respiratory exam: Present: normal lung sounds bilaterally. Absent: respiratory distress Cardiovascular Exam: Present: regular rate, normal rhythm, normal heart sounds GI/Abdominal exam: Present: soft. Absent: distended, tenderness, guarding, rebound, rigid Extremities exam: Present: normal inspection, full ROM, normal capillary refill. Absent: tenderness Back exam: Present: normal inspection, full ROM Neurological exam: Present: alert, oriented X3 Psychiatric exam: Present: normal affect, normal mood Skin exam: Present: warm, dry, intact, normal color Course Vital Signs 10/06/20 01:44 Temperature 97.7 F Pulse Rate 73 Respiratory 18 Rate Blood Pressure 185/74 O2 Sat by Pulse 99 Oximetry Medical Decision Making - Medical Decision Making 80-year-old female presents to emergency department with a chief complaint of painful urination. On physical examination, patient is well-appearing. No abdominal CVA tenderness. Vital signs are within normal limits. UA shows elevated leukocyte esterase and white blood cells. Urine culture is pending. Patient will be started on Rocephin and discharged with Macrobid. Return parameters were thoroughly discussed with patient who is understanding and agreeable.. Case discussed with physician. - Lab Data Lab Results 10/06/20 Range/Units 02:05 Urine Color Yellow Urine Appearance Turbid H (Clear) Urine pH 6.0 (5.0-8.0) Ur Specific [place] 1.015 (1.001-1.035) Urine Protein Trace H (Negative) Urine Glucose (UA) Negative (Negative) Urine Ketones Negative (Negative) Urine Blood Small H (Negative) Urine Nitrite Negative (Negative) Urine Bilirubin Negative (Negative) Urine Urobilinogen <2.0 (<2.0) mg/dL Ur Leukocyte Esterase Large H (Negative) Urine RBC 43 H (0-5) /hpf Urine WBC >182 H (0-5) /hpf Urine WBC Clumps Many H (None) /hpf Urine Bacteria Moderate H (None) /hpf Disposition Clinical Impression: Urinary tract infection Disposition: HOME SELF-CARE Condition: Stable Instructions (If sedation given, give patient instructions): Urinary Tract Infection in Women (ED) Additional Instructions: Please return to the Emergency Department if symptoms worsen or any other concerns. Prescriptions: Nitrofurantoin Monohyd/M-Cryst [Macrobid] 100 mg PO Q12HR #14 cap Is patient prescribed a controlled substance at d/c from ED?: No Referrals: Reid Lemus MD [Primary Care Provider] - 1-2 days Time of Disposition: 03:16
[2020-10-06] MEDS ORDERED: cefTRIAXone 1,000 MG VIAL (IM USE) IM STA (03:14)
[2020-10-06 03:30] VITALS: BP 148/62; PULSE 82; RESP 16
== END 2020-10-06 03:27 | disposition home or self-care (01) ==
LOC: EC 01:40
DX: N39.0 Urinary tract infection, site not specified (principal); I10 Essential (primary) hypertension; Z88.1 Allergy status to other antibiotic agents; Z88.2 Allergy status to sulfonamides; Z88.5 Allergy status to narcotic agent; Z88.8 Allergy status to other drugs, medicaments and biological substances; Z91.012 Allergy to eggs; Z91.011 Allergy to milk products; Z91.018 Allergy to other foods
CPT/HCPCS: 81001; 87086; 99283; 96372; J0696; 87077; 87186

== ENCOUNTER 2022-02-02 15:12 | Emergency (ER) | payer MEDICARE ==
[2022-02-02 15:19] VITALS: TEMP 97.6
[2022-02-02 16:59] LABS: Appearance,Urine Cloudy (Clear); Bacteria,Urine Occasional /hpf; Bilirubin,Urine Negative (Negative); Blood,Urine Negative (Negative); Color,Urine Yellow; Glucose,Urine (UA) Negative (Negative); Ketones,Urine 1+ (Negative); Leukocyte Esterase,Urine Large (Negative); Mucus,Urine Rare /hpf; Nitrite,Urine Positive (Negative); PH, Urine 8.5 (5.0-8.0); Protein,Urine 1+ (Negative); RBC,Urine 13 /hpf (0-5); Specific Gravity,Urine 1.019 (1.001-1.035); Squamous Epithelial Cell,Urine 1 /hpf (0-4); Urobilinogen,Urine <2.0 mg/dL (<2.0); WBC,Urine 77 /hpf (0-5)
[2022-02-02] MEDS ORDERED: SODIUM CHLORIDE 0.9% 1,000 ML IV STA (17:14)
--- NOTE | 2022-02-02 17:37 | ED ---
General Adult HPI - General Chief complaint: Weakness Stated complaint: Weakness Time Seen by Provider: 02/02/22 16:56 Source: patient Mode of arrival: ambulatory Limitations: no limitations - History of Present Illness Initial comments: Dictation was produced using [employer] dictation software. please excuse any grammatical, word or spelling errors. Chief Complaint: 81-year-old female presents with lower abdominal pain and weakness. History of Present Illness: Patient is a 81-year-old female presents with 1 day history of generalized weakness, episodic colicky abdominal pain. Patient tested positive for UTI from a sample that was given to her primary care physician 1 week ago. She was just notified of the results today. Patient complains of intermittent episodes of lower abdominal crampy pain. She does have urinary frequency and urgency. Denies any fever constitutional symptoms. No CVA pain. Patient reports that she gets frequent UTIs. The ROS documented in this emergency department record has been reviewed and co nfirmed by me. Those systems with pertinent positive or negative responses have been documented in the HPI. All other systems are other negative and/or noncontributory. PHYSICAL EXAM: General Impression: Alert and oriented x3, not in acute distress HEENT: Normocephalic atraumatic, extra-ocular movements intact, pupils equal and reactive to light bilaterally, mucous membranes moist. Cardiovascular: Heart regular rate and rhythm Chest: Able to complete full sentences, no retractions, no tachypnea Abdomen: abdomen soft, non-tender, non-distended, no organomegaly Musculoskeletal: Pulses present and equal in all extremities, no peripheral edema Motor: no focal deficits noted Neurological: CN II-XII grossly intact, no focal motor or sensory deficits noted Skin: Intact with no visualized rashes Psych: Normal affect and mood ED course: 81-year-old female presents emergency department for generalized weakness vital signs upon arrival are within acceptable limits. Patient is well-appearing at the bedside. Urinalysis and viral testing was ordered by triage nurse per HPI protocol. Urinalysis is positive for likely E. coli given there is elevated white blood cell counts and positive nitrites. Patient negative for COVID-19 and influenza. Laboratory evaluation obtained. CBC within acceptable limits. Coag panel is negative. Mild hyponatremia of sodium 129. Patient states she has a history of hyponatremia. Rest metabolic panel is within acceptable limits. Patient has a mild headache. She is given a headache cocktail. She denies that this headache is worse headache she has ever had. Patient observed in emergency department for approximately 5 hours. Reevaluation reevaluated a 15 p.m. on be stable medical condition. Patient discharged with antibiotics. Advised follow-up with primary care doctor. My EKG interpretation: Ventricular rate 79, sinus rhythm,. 160, Q is 97, QTC 410. No TX prolongation, no QTC prolongation, no ST or T-wave changes noted. Overall, this EKG is unremarkable Critical Care: no Critical Care time: n/a - Related Data Home Medications Medication Instructions Recorded Confirmed Latanoprost Ophth [Xalatan 0.005%] 1 drops BOTH EYES HS 05/26/16 02/02/22 Sodium Chloride 5% Ophth Soln 1 drops BOTH EYES BID 05/26/16 02/02/22 [Julio 128] Previous Rx's Medication Instructions Recorded Cefpodoxime Proxetil [Vantin] 200 mg PO Q12HR 10 Days #20 tab 02/02/22 Allergies Allergy/AdvReac Type Severity Reaction Status Date / Time clarithromycin [From Biaxin] Allergy Unknown Rapid Verified 02/02/22 18:21 Heart Rate, depression, difficulty sleeping codeine Allergy Unknown Nausea, Verified 02/02/22 18:21 Dizziness egg Allergy Unknown Phlegm Verified 02/02/22 18:21 levofloxacin [From Levaquin] Allergy Unknown Depression, Verified 02/02/22 18:21 Crying, Difficulty Sleeping milk Allergy Unknown Phlegm Verified 02/02/22 18:21 pantoprazole [From Protonix] Allergy Unknown Elevated Verified 02/02/22 18:21 Blood Sugar sulfamethoxazole Allergy Unknown Abdominal Verified 02/02/22 18:21 [From Bactrim] Pain, NAUSEA tramadol Allergy Unknown Dizziness Verified 02/02/22 18:21 trimethoprim [From Bactrim] Allergy Unknown Abdominal Verified 02/02/22 18:21 Pain, NAUSEA wheat Allergy Unknown Phlegm Verified 02/02/22 18:21 azithromycin Allergy Rapid Verified 02/02/22 18:21 [From Zithromax Z-Josesito] Heart Rate lactose Allergy Phlegm Verified 02/02/22 18:21 metoprolol Allergy Phlegm Verified 02/02/22 18:21 tree nut [Nut] Allergy Anaphylaxis Verified 02/02/22 18:21 atorvastatin [From Lipitor] AdvReac aching all Verified 02/02/22 18:21 over oral steroids Allergy Severe Abdominal Uncoded 02/02/22 18:21 Pain Review of Systems ROS Statement: Those systems with pertinent positive or pertinent negative responses have been documented in the HPI. ROS Other: All systems not noted in ROS Statement are negative. Past Medical History Past Medical History: Coronary Artery Disease (CAD), Hyperlipidemia, Hypertension, Osteoarthritis (OA) Additional Past Medical History / Comment(s): hx tachycardia History of Any Multi-Drug Resistant Organisms: None Reported Past Surgical History: Ablation Additional Past Surgical History / Comment(s): left knee and hip replacement Past Anesthesia/Blood Transfusion Reactions: No Reported Reaction Additional Past Anesthesia/Blood Transfusion Reaction / Comment(s): no hx blood transfusion Past Psychological History: No Psychological Hx Reported Smoking Status: Never smoker Past Alcohol Use History: Occasional Past Drug Use History: None Reported - Past Family History Mother Family Medical History: Neurologic Disorder Father Family Medical History: Congestive Heart Failure (CHF) Sister(s) Family Medical History: Osteoarthritis (OA) Daughter(s) Family Medical History: Cancer Additional Family Medical History / Comment(s): schizophrenia Son(s) Family Medical History: No Reported History General Exam Limitations: no limitations Course Vital Signs 02/02/22 02/02/22 15:16 19:40 Temperature 97.6 F Pulse Rate 97 106 H Respiratory 22 20 Rate Blood Pressure 185/85 160/90 O2 Sat by Pulse 96 97 Oximetry Medical Decision Making - Lab Data Result diagrams: 02/02/22 17:54 02/02/22 17:54 Lab Results 02/02/22 02/02/22 02/02/22 Range/Units 15:19 15:19 16:48 WBC (3.8-10.6) k/uL RBC (3.80-5.40) m/uL Hgb (11.4-16.0) gm/dL Hct (34.0-46.0) % MCV (80.0-100.0) fL MCH (25.0-35.0) pg MCHC (31.0-37.0) g/dL RDW (11.5-15.5) % Plt Count (150-450) k/uL MPV Neutrophils % % Lymphocytes % % Monocytes % % Eosinophils % % Basophils % % Neutrophils # (1.3-7.7) k/uL Lymphocytes # (1.0-4.8) k/uL Monocytes # (0-1.0) k/uL Eosinophils # (0-0.7) k/uL Basophils # (0-0.2) k/uL PT (9.0-12.0) sec INR (<1.2) APTT (22.0-30.0) sec Sodium (137-145) mmol/L Potassium (3.5-5.1) mmol/L Chloride (98-107) mmol/L Carbon Dioxide (22-30) mmol/L Anion Gap mmol/L BUN (7-17) mg/dL Creatinine (0.52-1.04) mg/dL Est GFR (CKD-EPI)AfAm (>60 ml/min/1.73 sqM) Est GFR (CKD-EPI)NonAf (>60 ml/min/1.73 sqM) Glucose (74-99) mg/dL Plasma Lactic Acid Gary (0.7-2.0) mmol/L Calcium (8.4-10.2) mg/dL Total Bilirubin (0.2-1.3) mg/dL AST (14-36) U/L ALT (4-34) U/L Alkaline Phosphatase (38-126) U/L Total Protein (6.3-8.2) g/dL Albumin (3.5-5.0) g/dL Urine Color Yellow Urine Appearance Cloudy H (Clear) Urine pH 8.5 H (5.0-8.0) Ur Specific [place] 1.019 (1.001-1.035) Urine Protein 1+ H (Negative) Urine Glucose (UA) Negative (Negative) Urine Ketones 1+ H (Negative) Urine Blood Negative (Negative) Urine Nitrite Positive H (Negative) Urine Bilirubin Negative (Negative) Urine Urobilinogen <2.0 (<2.0) mg/dL Ur Leukocyte Esterase Large H (Negative) Urine RBC 13 H (0-5) /hpf Urine WBC 77 H (0-5) /hpf Ur Squamous Epith Cells 1 (0-4) /hpf Urine Bacteria Occasional H (None) /hpf Urine Mucus Rare H (None) /hpf Coronavirus (PCR) Not Detected (Not Detectd) Influenza Type A RNA Not Detected (Not Detectd) Influenza Type B (PCR) Not Detected (Not Detectd) 02/02/22 02/02/22 02/02/22 Range/Units 17:54 17:54 17:54 WBC 10.6 (3.8-10.6) k/uL RBC 4.73 (3.80-5.40) m/uL Hgb 14.2 (11.4-16.0) gm/dL Hct 41.7 (34.0-46.0) % MCV 88.0 (80.0-100.0) fL MCH 30.1 (25.0-35.0) pg MCHC 34.2 (31.0-37.0) g/dL RDW 12.2 (11.5-15.5) % Plt Count 217 (150-450) k/uL MPV 9.7 Neutrophils % 92 % Lymphocytes % 3 % Monocytes % 3 % Eosinophils % 1 % Basophils % 0 % Neutrophils # 9.7 H (1.3-7.7) k/uL Lymphocytes # 0.3 L (1.0-4.8) k/uL Monocytes # 0.4 (0-1.0) k/uL Eosinophils # 0.1 (0-0.7) k/uL Basophils # 0.0 (0-0.2) k/uL PT 10.9 (9.0-12.0) sec INR 1.0 (<1.2) APTT 23.7 (22.0-30.0) sec Sodium 129 L (137-145) mmol/L Potassium 5.6 H (3.5-5.1) mmol/L Chloride 98 (98-107) mmol/L Carbon Dioxide 23 (22-30) mmol/L Anion Gap 8 mmol/L BUN 17 (7-17) mg/dL Creatinine 0.51 L (0.52-1.04) mg/dL Est GFR (CKD-EPI)AfAm >90 (>60 ml/min/1.73 sqM) Est GFR (CKD-EPI)NonAf >90 (>60 ml/min/1.73 sqM) Glucose 107 H (74-99) mg/dL Plasma Lactic Acid Gary (0.7-2.0) mmol/L Calcium 8.8 (8.4-10.2) mg/dL Total Bilirubin 1.5 H (0.2-1.3) mg/dL AST 70 H (14-36) U/L ALT 45 H (4-34) U/L Alkaline Phosphatase 87 (38-126) U/L Total Protein 7.4 (6.3-8.2) g/dL Albumin 4.7 (3.5-5.0) g/dL Urine Color Urine Appearance (Clear) Urine pH (5.0-8.0) Ur Specific [place] (1.001-1.035) Urine Protein (Negative) Urine Glucose (UA) (Negative) Urine Ketones (Negative) Urine Blood (Negative) Urine Nitrite (Negative) Urine Bilirubin (Negative) Urine Urobilinogen (<2.0) mg/dL Ur Leukocyte Esterase (Negative) Urine RBC (0-5) /hpf Urine WBC (0-5) /hpf Ur Squamous Epith Cells (0-4) /hpf Urine Bacteria (None) /hpf Urine Mucus (None) /hpf Coronavirus (PCR) (Not Detectd) Influenza Type A RNA (Not Detectd) Influenza Type B (PCR) (Not Detectd) 02/02/22 Range/Units 17:54 WBC (3.8-10.6) k/uL RBC (3.80-5.40) m/uL Hgb (11.4-16.0) gm/dL Hct (34.0-46.0) % MCV (80.0-100.0) fL MCH (25.0-35.0) pg MCHC (31.0-37.0) g/dL RDW (11.5-15.5) % Plt Count (150-450) k/uL MPV Neutrophils % % Lymphocytes % % Monocytes % % Eosinophils % % Basophils % % Neutrophils # (1.3-7.7) k/uL Lymphocytes # (1.0-4.8) k/uL Monocytes # (0-1.0) k/uL Eosinophils # (0-0.7) k/uL Basophils # (0-0.2) k/uL PT (9.0-12.0) sec INR (<1.2) APTT (22.0-30.0) sec Sodium (137-145) mmol/L Potassium (3.5-5.1) mmol/L Chloride (98-107) mmol/L Carbon Dioxide (22-30) mmol/L Anion Gap mmol/L BUN (7-17) mg/dL Creatinine (0.52-1.04) mg/dL Est GFR (CKD-EPI)AfAm (>60 ml/min/1.73 sqM) Est GFR (CKD-EPI)NonAf (>60 ml/min/1.73 sqM) Glucose (74-99) mg/dL Plasma Lactic Acid Gary 1.0 (0.7-2.0) mmol/L Calcium (8.4-10.2) mg/dL Total Bilirubin (0.2-1.3) mg/dL AST (14-36) U/L ALT (4-34) U/L Alkaline Phosphatase (38-126) U/L Total Protein (6.3-8.2) g/dL Albumin (3.5-5.0) g/dL Urine Color Urine Appearance (Clear) Urine pH (5.0-8.0) Ur Specific [place] (1.001-1.035) Urine Protein (Negative) Urine Glucose (UA) (Negative) Urine Ketones (Negative) Urine Blood (Negative) Urine Nitrite (Negative) Urine Bilirubin (Negative) Urine Urobilinogen (<2.0) mg/dL Ur Leukocyte Esterase (Negative) Urine RBC (0-5) /hpf Urine WBC (0-5) /hpf Ur Squamous Epith Cells (0-4) /hpf Urine Bacteria (None) /hpf Urine Mucus (None) /hpf Coronavirus (PCR) (Not Detectd) Influenza Type A RNA (Not Detectd) Influenza Type B (PCR) (Not Detectd) Disposition Clinical Impression: UTI (urinary tract infection) Disposition: HOME SELF-CARE Condition: Good Instructions (If sedation given, give patient instructions): Urinary Tract Infection in Women (DC) Prescriptions: Cefpodoxime Proxetil [Vantin] 200 mg PO Q12HR 10 Days #20 tab Is patient prescribed a controlled substance at d/c from ED?: No Referrals: Reid Lemus MD [Primary Care Provider] - 1-2 days Time of Disposition: 20:13
[2022-02-02 18:38] LABS: Basophils % (A) 0 %; Eosinophils # (A) 0.1 k/uL (0-0.7); Eosinophils % (A) 1 %; HCT 41.7 % (34.0-46.0); HGB 14.2 gm/dL (11.4-16.0); Lymphocytes # (A) 0.3 k/uL (1.0-4.8); Lymphocytes % (A) 3 %; MCH 30.1 pg (25.0-35.0); MCHC 34.2 g/dL (31.0-37.0); Mean Platelet Volume 9.7; Monocytes # (A) 0.4 k/uL (0-1.0); Monocytes % (A) 3 %; Neutrophils # (A) 9.7 k/uL (1.3-7.7); Neutrophils % (A) 92 %; Platelet Count 217 k/uL (150-450); RBC 4.73 m/uL (3.80-5.40); RDW 12.2 % (11.5-15.5); WBC 10.6 k/uL (3.8-10.6)
[2022-02-02 18:48] LABS: Partial Thromboplastin Time 23.7 sec (22.0-30.0); Prothrombin Time 10.9 sec (9.0-12.0)
[2022-02-02 18:50] LABS: ALT 45 U/L (4-34); AST 70 U/L (14-36); African American GFR (CKD) >90 (>60 ml/min/1.73 sqM); Albumin 4.7 g/dL (3.5-5.0); Alkaline Phosphatase 87 U/L (38-126); Anion Gap 8 mmol/L; Blood Urea Nitrogen 17 mg/dL (7-17); Calcium 8.8 mg/dL (8.4-10.2); Carbon Dioxide 23 mmol/L (22-30); Chloride 98 mmol/L (98-107); Glucose 107 mg/dL (74-99); Non-African American GFR(CKD) >90 (>60 ml/min/1.73 sqM); Sodium 129 mmol/L (137-145); Total Bilirubin 1.5 mg/dL (0.2-1.3); Total Protein 7.4 g/dL (6.3-8.2)
[2022-02-02 19:07] LABS: Potassium 5.6 mmol/L (3.5-5.1)
[2022-02-02] MEDS ORDERED: ONDANSETRON 4 MG/2 ML VIAL IVP STA (19:26)
[2022-02-02] MEDS ORDERED: diphenhydrAMINE 50 MG/ML 1 ML VIAL IVP STA (19:26)
[2022-02-02] MEDS ORDERED: KETOROLAC 15 MG/ML 1 ML VIAL IVP STA (19:26)
[2022-02-02 20:22] VITALS: BP 160/80; PULSE 100; RESP 16
== END 2022-02-02 21:02 | disposition home or self-care (01) ==
LOC: EC 15:12
DX: N39.0 Urinary tract infection, site not specified (principal); E87.1 Hypo-osmolality and hyponatremia; E78.5 Hyperlipidemia, unspecified; I10 Essential (primary) hypertension; I25.10 Atherosclerotic heart disease of native coronary artery without angina pectoris; Z20.822 Contact with and (suspected) exposure to COVID-19; Z88.1 Allergy status to other antibiotic agents; Z88.2 Allergy status to sulfonamides; Z88.6 Allergy status to analgesic agent; Z88.8 Allergy status to other drugs, medicaments and biological substances; Z91.011 Allergy to milk products; Z91.018 Allergy to other foods
CPT/HCPCS: 99285; 96374; 96375; 96361; 36415; 93005; 80053; 83605; 85025; 85610; 85730; 81001; 87086; 87502; 87635; J1200; J2405; J1885

== ENCOUNTER → 2022-02-17 | Outpatient (CLI) | payer MEDICARE ==
--- NOTE | 2022-02-17 12:07 | US ---
EXAMINATION TYPE: US abdomen complete DATE OF EXAM: 02/17/2022 COMPARISON: NONE CLINICAL HISTORY: R10.9 abd pain. Recurrent bladder infections TECHNIQUE: Multiple sonographic images of the abdomen are obtained. FINDINGS: EXAM MEASUREMENTS: Liver Length: 17.0 cm Gallbladder Wall: 0.2 cm CBD: 0.6 cm Spleen: 9.3 cm Right Kidney: 10.0 x 3.9 x 4.6 cm Left Kidney: 10.2 x 4.9 x 4.3 cm Pancreas: duct = 0.2cm Liver: appears wnl Gallbladder: at least 2 small stones Evidence for sonographic Riley's sign: no CBD: wnl Spleen: wnl Right Kidney: no evidence of hydronephrosis Left Kidney: no evidence of hydronephrosis Upper IVC: wnl Abd Aorta: wnl The liver is homogenous. The intrahepatic portion of the IVC and proximal abdominal aorta are within normal limits. There is cholelithiasis without evidence of wall thickening or cholecystic fluid. C ommon bile duct is unremarkable. The visualized portions of the pancreas are homogenous. The spleen is unremarkable. Kidneys are symmetric and free of hydronephrosis. No shadowing renal calculi or co ntour deforming solid masses. IMPRESSION: 1. No acute process. 2. Cholelithiasis without evidence for acute cholecystitis.
== END | disposition home or self-care (01) ==
LOC: RADUSWWP 08:12
PROVIDERS: ATTEND Internal Medicine Geriatric Medicine
DX: K80.20 Calculus of gallbladder without cholecystitis without obstruction (principal)
CPT/HCPCS: 76700

== ENCOUNTER 2022-03-26 03:47 | Emergency (ER) | payer MEDICARE ==
[2022-03-26] MEDS ORDERED: ONDANSETRON 4 MG/2 ML VIAL IVP STA (04:03)
[2022-03-26] MEDS ORDERED: SODIUM CHLORIDE 0.9% 1,000 ML IV STA (04:03)
[2022-03-26] MEDS ORDERED: MORPHINE SULFATE 4 MG/ML SYRINGE IVP STA (04:06)
--- NOTE | 2022-03-26 04:10 | ED ---
Abdominal Pain HPI - General Chief Complaint: Abdominal Pain Stated Complaint: Abd Pain, Back Pain Time Seen by Provider: 03/26/22 04:03 Source: patient, RN notes reviewed, old records reviewed Mode of arrival: wheelchair Limitations: no limitations - History of Present Illness Initial Comments: This is an 82-year-old female to the emergency department for evaluation. Patient presents today for evaluation of suprapubic abdominal pain cramping and back pain. She does have history of similar pain with urinary tract infections this is worse it's coming and going and getting very severe when it comes on. She is very scared patient's crying during history taking MD Complaint: abdominal pain -: hour(s) Location: suprapubic Radiation: suprapubic, back Migration to: bilateral flank Severity: severe Severity scale (1-10): 8 Quality: stabbing Consistency: intermittent Improves With: nothing Worsens With: nothing Associated Symptoms: nausea Treatments Prior to Arrival: other (0) - Related Data Home Medications Medication Instructions Recorded Confirmed Latanoprost Ophth [Xalatan 0.005%] 1 drops BOTH EYES HS 05/26/16 02/02/22 Sodium Chloride 5% Ophth Soln 1 drops BOTH EYES BID 05/26/16 02/02/22 [Julio 128] Previous Rx's Medication Instructions Recorded Cefpodoxime Proxetil [Vantin] 200 mg PO Q12HR 10 Days #20 tab 02/02/22 Allergies Allergy/AdvReac Type Severity Reaction Status Date / Time clarithromycin [From Biaxin] Allergy Unknown Rapid Verified 03/26/22 03:53 Heart Rate, depression, difficulty sleeping codeine Allergy Unknown Nausea, Verified 03/26/22 03:53 Dizziness egg Allergy Unknown Phlegm Verified 03/26/22 03:53 levofloxacin [From Levaquin] Allergy Unknown Depression, Verified 03/26/22 03:53 Crying, Difficulty Sleeping milk Allergy Unknown Phlegm Verified 03/26/22 03:53 pantoprazole [From Protonix] Allergy Unknown Elevated Verified 03/26/22 03:53 Blood Sugar sulfamethoxazole Allergy Unknown Abdominal Verified 03/26/22 03:53 [From Bactrim] Pain, NAUSEA tramadol Allergy Unknown Dizziness Verified 03/26/22 03:53 trimethoprim [From Bactrim] Allergy Unknown Abdominal Verified 03/26/22 03:53 Pain, NAUSEA wheat Allergy Unknown Phlegm Verified 03/26/22 03:53 azithromycin Allergy Rapid Verified 03/26/22 03:53 [From Zithromax Z-Josesito] Heart Rate lactose Allergy Phlegm Verified 03/26/22 03:53 metoprolol Allergy Phlegm Verified 03/26/22 03:53 tree nut [Nut] Allergy Anaphylaxis Verified 03/26/22 03:53 atorvastatin [From Lipitor] AdvReac aching all Verified 03/26/22 03:53 over oral steroids Allergy Severe Abdominal Uncoded 03/26/22 03:53 Pain Review of Systems ROS Statement: Those systems with pertinent positive or pertinent negative responses have been documented in the HPI. ROS Other: All systems not noted in ROS Statement are negative. Past Medical History Past Medical History: Coronary Artery Disease (CAD), Hyperlipidemia, Hypertension, Osteoarthritis (OA) Additional Past Medical History / Comment(s): hx tachycardia History of Any Multi-Drug Resistant Organisms: None Reported Past Surgical History: Ablation, Joint Replacement, Orthopedic Surgery Additional Past Surgical History / Comment(s): left knee and hip replacement Past Anesthesia/Blood Transfusion Reactions: No Reported Reaction Additional Past Anesthesia/Blood Transfusion Reaction / Comment(s): no hx blood transfusion Past Psychological History: No Psychological Hx Reported Smoking Status: Never smoker Past Alcohol Use History: Occasional Past Drug Use History: None Reported - Past Family History Mother Family Medical History: Neurologic Disorder Father Family Medical History: Congestive Heart Failure (CHF) Sister(s) Family Medical History: Osteoarthritis (OA) Daughter(s) Family Medical History: Cancer Additional Family Medical History / Comment(s): schizophrenia Son(s) Family Medical History: No Reported History General Exam Limitations: no limitations General appearance: alert, in no apparent distress, anxious Head exam: Present: atraumatic, normocephalic, normal inspection Eye exam: Present: normal appearance, PERRL, EOMI. Absent: scleral icterus, conjunctival injection, periorbital swelling ENT exam: Present: normal exam, mucous membranes moist Neck exam: Present: normal inspection. Absent: tenderness, meningismus, lymphadenopathy Respiratory exam: Present: normal lung sounds bilaterally. Absent: respiratory distress, wheezes, rales, rhonchi, stridor Cardiovascular Exam: Present: normal rhythm, tachycardia, normal heart sounds. Absent: systolic murmur, diastolic murmur, rubs, gallop, clicks GI/Abdominal exam: Present: soft, normal bowel sounds. Absent: distended, tenderness, guarding, rebound, rigid Extremities exam: Present: normal inspection, full ROM, normal capillary refill. Absent: tenderness, pedal edema, joint swelling, calf tenderness Back exam: Present: normal inspection Neurological exam: Present: alert, oriented X3, CN II-XII intact Psychiatric exam: Present: normal affect, normal mood Skin exam: Present: warm, dry, intact, normal color. Absent: rash Course Vital Signs 03/26/22 03/26/22 03/26/22 03:53 04:51 05:00 Temperature 98.2 F Pulse Rate 109 H 76 77 Respiratory 20 16 16 Rate Blood Pressure 149/84 157/68 157/72 O2 Sat by Pulse 96 96 94 L Oximetry 03/26/22 03/26/22 03/26/22 05:48 06:00 07:39 Temperature 98.9 F Pulse Rate 71 88 Respiratory 16 16 Rate Blood Pressure 145/71 130/63 O2 Sat by Pulse 96 97 97 Oximetry - Reevaluation(s) Reevaluation #1: 03/26/22 04:11 Medical records reviewed Reevaluation #2: 03/26/22 04:11 Patient symptoms are improved Reevaluation #3: 03/26/22 04:11 Patient informed results and questions are answered Reevaluation #4: 03/26/22 04:11 Differential Abdominal Pain Women: Appendicitis, Cholecystitis, diverticulosis, ischemic bowel, pancreatitis, hepatitis, UTI, gastroenteritis, AAA, incarcerated hernia, bowel obstruction, constipation, inflammatory bowel, hepatitis, peptic ulcer disease, splenic infarction, perforated viscus, vulvitis, ovarian torsion, PID, kidney stone, placenta abruption, this is not meant to be an all-inclusive list Reevaluation #5: 03/26/22 04:11 Was pt. sent in by a medical professional or institution? @ -no Did you speak to anyone other than the patient for history? @ -no Did you review nursing and triage notes? @ -agree Were old charts reviewed? @ -no Differential Diagnosis? @ -prior EKG interpreted by me (3pts min.)? @ -[none] X-rays interpreted by me (1pt min.)? @ -[none] CT interpreted by me (1pt min.)? @ -[none] U/S interpreted by me (1pt. min.)? @ -[none] What testing was considered but not performed? (CT, X-rays, U/S, labs)? Why? @ no What meds were considered but not given? Why? @ -[none] Did you discuss the management of the patient with other professionals? @ -no Did you reconcile home meds? @ -[none] Was smoking cessation discussed for >3mins.? @ -[none] Was critical care preformed (if so, how long)? @ -[none] Were there social determinants of health that impacted care today? How? (Homelessness, low income, unemployed, alcoholism, drug addiction, transportation, low edu. Level, literacy, decrease access to med. care, alf, rehab)? @ -no Was there de-escalation of care discussed even if they declined? (Discuss DNR or withdrawal of care, Hospice)? @ -no What co-morbidities impacted this encounter? (DM, HTN, Smoking, COPD, CAD, Cancer, CVA, Hep., AIDS, mental health diagnosis, sleep apnea, morbid obesity)? @ -no Was patient admitted / discharged? @ -dc Undiagnosed new problem with uncertain prognosis? @ -[none] Drug Therapy requiring intensive monitoring for toxicity (Heparin, Nitro, Insulin, Cardizem)? @ -[none] Were any procedures done? @ -[none] Diagnosis/symptom? @ -[default] Acute, or Chronic, or Acute on Chronic? @ -[default] Uncomplicated (without systemic symptoms) or Complicated (systemic symptoms)? @ -[default] Side effects of treatment? @ -[none] Exacerbation, Progression, or Severe Exacerbation] @ -[no] Poses a threat to life or bodily function? @ -[no] Medical Decision Making - Medical Decision Making 82 female presenting with abdominal pain. Stated felt like prior UTI, no UTI here in the ER she has have mild diverticulitis. Patient's pain is controlled she does prefer discharged home with outpatient treatment, patient solid oral intake here in the ER can be discharged home - Lab Data Result diagrams: 03/26/22 04:24 03/26/22 04:24 Lab Results 03/26/22 03/26/22 03/26/22 Range/Units 04:24 04:24 04:24 WBC 9.6 (3.8-10.6) k/uL RBC 4.62 (3.80-5.40) m/uL Hgb 13.9 (11.4-16.0) gm/dL Hct 40.2 (34.0-46.0) % MCV 87.0 (80.0-100.0) fL MCH 30.1 (25.0-35.0) pg MCHC 34.6 (31.0-37.0) g/dL RDW 12.9 (11.5-15.5) % Plt Count 225 (150-450) k/uL MPV 8.6 Neutrophils % 76 % Lymphocytes % 9 % Monocytes % 7 % Eosinophils % 4 % Basophils % 0 % Neutrophils # 7.3 (1.3-7.7) k/uL Lymphocytes # 0.9 L (1.0-4.8) k/uL Monocytes # 0.7 (0-1.0) k/uL Eosinophils # 0.4 (0-0.7) k/uL Basophils # 0.0 (0-0.2) k/uL PT 9.7 (9.0-12.0) sec INR 0.9 (<1.2) APTT 24.4 (22.0-30.0) sec Sodium (137-145) mmol/L Potassium (3.5-5.1) mmol/L Chloride (98-107) mmol/L Carbon Dioxide (22-30) mmol/L Anion Gap mmol/L BUN (7-17) mg/dL Creatinine (0.52-1.04) mg/dL Est GFR (CKD-EPI)AfAm (>60 ml/min/1.73 sqM) Est GFR (CKD-EPI)NonAf (>60 ml/min/1.73 sqM) Glucose (74-99) mg/dL Plasma Lactic Acid Gary (0.7-2.0) mmol/L Calcium (8.4-10.2) mg/dL Total Bilirubin (0.2-1.3) mg/dL AST (14-36) U/L ALT (4-34) U/L Alkaline Phosphatase (38-126) U/L Total Protein (6.3-8.2) g/dL Albumin (3.5-5.0) g/dL Amylase (30-110) U/L Lipase (23-300) U/L Urine Color Light Yellow Urine Appearance Clear (Clear) Urine pH 7.5 (5.0-8.0) Ur Specific Bosworth 1.010 (1.001-1.035) Urine Protein Negative (Negative) Urine Glucose (UA) Negative (Negative) Urine Ketones Negative (Negative) Urine Blood Negative (Negative) Urine Nitrite Negative (Negative) Urine Bilirubin Negative (Negative) Urine Urobilinogen <2.0 (<2.0) mg/dL Ur Leukocyte Esterase Negative (Negative) 03/26/22 03/26/22 Range/Units 04:24 04:24 WBC (3.8-10.6) k/uL RBC (3.80-5.40) m/uL Hgb (11.4-16.0) gm/dL Hct (34.0-46.0) % MCV (80.0-100.0) fL MCH (25.0-35.0) pg MCHC (31.0-37.0) g/dL RDW (11.5-15.5) % Plt Count (150-450) k/uL MPV Neutrophils % % Lymphocytes % % Monocytes % % Eosinophils % % Basophils % % Neutrophils # (1.3-7.7) k/uL Lymphocytes # (1.0-4.8) k/uL Monocytes # (0-1.0) k/uL Eosinophils # (0-0.7) k/uL Basophils # (0-0.2) k/uL PT (9.0-12.0) sec INR (<1.2) APTT (22.0-30.0) sec Sodium 137 (137-145) mmol/L Potassium 4.2 (3.5-5.1) mmol/L Chloride 104 (98-107) mmol/L Carbon Dioxide 25 (22-30) mmol/L Anion Gap 8 mmol/L BUN 16 (7-17) mg/dL Creatinine 0.59 (0.52-1.04) mg/dL Est GFR (CKD-EPI)AfAm >90 (>60 ml/min/1.73 sqM) Est GFR (CKD-EPI)NonAf 85 (>60 ml/min/1.73 sqM) Glucose 116 H (74-99) mg/dL Plasma Lactic Acid Gary 1.1 (0.7-2.0) mmol/L Calcium 9.3 (8.4-10.2) mg/dL Total Bilirubin 0.8 (0.2-1.3) mg/dL AST 27 (14-36) U/L ALT 24 (4-34) U/L Alkaline Phosphatase 79 (38-126) U/L Total Protein 7.0 (6.3-8.2) g/dL Albumin 4.2 (3.5-5.0) g/dL Amylase 71 (30-110) U/L Lipase 80 (23-300) U/L Urine Color Urine Appearance (Clear) Urine pH (5.0-8.0) Ur Specific Bosworth (1.001-1.035) Urine Protein (Negative) Urine Glucose (UA) (Negative) Urine Ketones (Negative) Urine Blood (Negative) Urine Nitrite (Negative) Urine Bilirubin (Negative) Urine Urobilinogen (<2.0) mg/dL Ur Leukocyte Esterase (Negative) - Radiology Data Radiology results: report reviewed (CT pelvis positive for diverticulitis), i mage reviewed Disposition Clinical Impression: Abdominal pain, Diverticulitis Disposition: HOME SELF-CARE Condition: Good Instructions (If sedation given, give patient instructions): Diverticulitis (ED) Is patient prescribed a controlled substance at d/c from ED?: No Referrals: Reid Lemus MD [Primary Care Provider] - 1-2 days Time of Disposition: 06:00
[2022-03-26 04:30] LABS: Basophils % (A) 0 %; Eosinophils # (A) 0.4 k/uL (0-0.7); Eosinophils % (A) 4 %; HCT 40.2 % (34.0-46.0); HGB 13.9 gm/dL (11.4-16.0); Lymphocytes # (A) 0.9 k/uL (1.0-4.8); Lymphocytes % (A) 9 %; MCH 30.1 pg (25.0-35.0); MCHC 34.6 g/dL (31.0-37.0); Mean Platelet Volume 8.6; Monocytes # (A) 0.7 k/uL (0-1.0); Monocytes % (A) 7 %; Neutrophils # (A) 7.3 k/uL (1.3-7.7); Neutrophils % (A) 76 %; Platelet Count 225 k/uL (150-450); RBC 4.62 m/uL (3.80-5.40); RDW 12.9 % (11.5-15.5); WBC 9.6 k/uL (3.8-10.6)
[2022-03-26 04:34] LABS: Appearance,Urine Clear (Clear); Bilirubin,Urine Negative (Negative); Blood,Urine Negative (Negative); Color,Urine Light Yellow; Glucose,Urine (UA) Negative (Negative); Ketones,Urine Negative (Negative); Leukocyte Esterase,Urine Negative (Negative); Nitrite,Urine Negative (Negative); PH, Urine 7.5 (5.0-8.0); Protein,Urine Negative (Negative); Urobilinogen,Urine <2.0 mg/dL (<2.0)
[2022-03-26 04:40] LABS: INR 0.9 (<1.2); Partial Thromboplastin Time 24.4 sec (22.0-30.0); Prothrombin Time 9.7 sec (9.0-12.0)
[2022-03-26 04:44] LABS: ALT 24 U/L (4-34); AST 27 U/L (14-36); African American GFR (CKD) >90 (>60 ml/min/1.73 sqM); Albumin 4.2 g/dL (3.5-5.0); Alkaline Phosphatase 79 U/L (38-126); Amylase 71 U/L (30-110); Anion Gap 8 mmol/L; Blood Urea Nitrogen 16 mg/dL (7-17); Calcium 9.3 mg/dL (8.4-10.2); Carbon Dioxide 25 mmol/L (22-30); Chloride 104 mmol/L (98-107); Glucose 116 mg/dL (74-99); Lipase 80 U/L (23-300); Non-African American GFR(CKD) 85 (>60 ml/min/1.73 sqM); Potassium 4.2 mmol/L (3.5-5.1); Sodium 137 mmol/L (137-145); Total Bilirubin 0.8 mg/dL (0.2-1.3)
[2022-03-26 04:52] VITALS: RESP 16
--- NOTE | 2022-03-26 05:29 | CT ---
EXAMINATION TYPE: CT abdomen pelvis wo con DATE OF EXAM: 03/26/2022 COMPARISON: None HISTORY: abd pain CT DLP: 560 mGycm Automated exposure control for dose reduction was used. Images obtained from the diaphragm to the floor the pelvis with no contrast. There is some mild subsegmental atelectasis at the right lung base. No pleural effusion. Heart is sli ghtly enlarged. No pericardial effusion. Liver spleen stomach appear intact. There is small hiatal hernia. There is no pancreatic mass. The teresa wel gas are not dilated. Gallbladder appears normal. There is no adrenal mass. Kidneys of normal size. There is mild left-sided hydronephrosis. No renal c alculus seen. Left ureter is not dilated. No retroperitoneal adenopathy. Abdominal aorta is atheromat ous. No evidence of ureteral calculus. There is wall thickening with numerous sigmoid diverticula. There is mild mesenteric edema involving the sigmoid colon. There is metal artifact from left hip prosthesis. The bladder distends smoothly. N o pelvic mass. No definite free fluid in the pelvis. The lumbar vertebrae have fairly normal alignment. No compression fracture. There is multilevel disc space narrowing with spurring and vacuum disc. No compression fracture. Bony pelvis is intact. No pel sana fracture. There is slight lumbar levoscoliosis. IMPRESSION: There is some wall thickening and mesenteric edema with numerous sigmoid diverticula. There is eviden ce for mild diverticulitis. No drainable fluid collection. No bowel obstruction. No evidence of thick ened appendix.
[2022-03-26] MEDS ORDERED: IBUPROFEN 600 MG STARTER PACK 4 TAB BTL PO STA (05:49)
[2022-03-26] MEDS ORDERED: ACET/COD 300 MG/30 MG STARTER PACK 6 TAB BTL PO STA (05:49)
[2022-03-26] MEDS ORDERED: ONDANSETRON 4 MG ODT STARTER PACK 2 TAB BTL PO STA (05:49)
[2022-03-26] MEDS ORDERED: AMOXIC-POT CLAV 875-125MG 1 EACH TAB PO STA (06:16)
[2022-03-26] MEDS ORDERED: AMOXIC-POT CLAV 875MG STARTER PACK 2 TAB BTL PO STA (06:16)
[2022-03-26] MEDS ORDERED: AMPICILLIN-SULBACTAM 3 GM in SODIUM CHLORIDE 0.9% 100 ML IVPB STA (06:16)
[2022-03-26 07:40] VITALS: BP 130/63; PULSE 88; TEMP 98.9
== END 2022-03-26 07:39 | disposition home or self-care (01) ==
LOC: EC 03:47
DX: K57.92 Diverticulitis of intestine, part unspecified, without perforation or abscess without bleeding (principal); K57.32 Diverticulitis of large intestine without perforation or abscess without bleeding; K44.9 Diaphragmatic hernia without obstruction or gangrene; N13.30 Unspecified hydronephrosis; I11.9 Hypertensive heart disease without heart failure; I25.10 Atherosclerotic heart disease of native coronary artery without angina pectoris; Z88.8 Allergy status to other drugs, medicaments and biological substances; Z88.5 Allergy status to narcotic agent; Z88.2 Allergy status to sulfonamides; Z88.1 Allergy status to other antibiotic agents; Z91.018 Allergy to other foods; Z91.011 Allergy to milk products; Z91.010 Allergy to peanuts
CPT/HCPCS: 36415; 80053; 82150; 83605; 83690; 85025; 85610; 85730; 81003; 74176; 99284; 96365; 96367; 96375 ×2; 96361; J2270; J2405; J0696; J0295; S0119